=== PATIENT | female | born 1965 | race Caucasian/White ===

== ENCOUNTER 2016-11-08 20:44 | Inpatient (IN) | payer MEDICARE, OTHER ==
[~2016-11-08] VITALS: Ht 154.9 cm; Wt 94.0 kg
[~2016-11-08 20:44] MED LIST: AMLO-512 PO; CARV12 PO; DICL75TA5 PO; FENO160T11 PO; METF1000 PO; MULT-60 PO; PRAV40 PO
[2016-11-08] MEDS ORDERED: GLIP5 PO (20:54)
[2016-11-08] MEDS ORDERED: CARI350 PO (20:54)
[2016-11-08 21:01] LABS: GLUCOSE,POINT OF CARE 78 MG/DL (70-110)
[2016-11-08] MEDS ORDERED: MORPHINE SULFATE 2 MG/ML SYRINGE IVP ONE (21:15)
[2016-11-08] MEDS ORDERED: SODIUM CHLORIDE 0.9% 1,000 ML IV ONE (21:15)
[2016-11-08] MEDS ORDERED: ONDANSETRON HCL 4 MG/2 ML VIAL IVP ONE ×2 (21:15→21:45)
[2016-11-08 21:18] LABS: BASOPHILS % (AUTO) 0.7 % (0.0-2.0); EOSINOPHILS % (AUTO) 4.6 % (1.0-6.0); HEMATOCRIT 33.7 % (36-46); HEMOGLOBIN 11.4 g/dL (12.0-16.0); LYMPHOCYTES # (AUTO) 3.2 K/uL (1.0-4.8); LYMPHOCYTES % (AUTO) 46.6 % (22.0-44.0); MEAN CORPUSCULAR HEMOGLOBIN 29.1 pg (26.0-34.0); MEAN CORPUSCULAR HGB CONC 33.7 G/dL (31.0-37.0); MEAN CORPUSCULAR VOLUME 86 fL (80-100); MONOCYTES # (AUTO) 0.6 K/uL (0.1-1.0); MONOCYTES % (AUTO) 8.3 % (2.0-9.0); NEUTROPHILS # (AUTO) 2.7 K/uL (1.8-7.7); NEUTROPHILS % (AUTO) 39.8 % (40.0-70.0); PLATELET COUNT (AUTO) 364 K/uL (150-450); RED CELL DISTRIBUTION WIDTH 13.7 % (11.5-14.5); WHITE BLOOD COUNT (AUTO) 6.8 K/uL (4.5-11.0)
[2016-11-08 21:28] LABS: ANION GAP 11 mmol/L (8-16); CALCIUM, TOTAL 9.8 mg/dL (8.8-10.5); CARBON DIOXIDE 24 mmol/L (22-29); CHLORIDE 105 mmol/L (98-107); CREATININE 0.69 mg/dL (0.60-1.30); GLOMERULAR FILTR. RATE CALC > 60 mL/min (>60); SODIUM SERUM 140 mmol/L (136-145); UREA NITROGEN, BLOOD 18 mg/dL (7-18)
[2016-11-08 21:35] LABS: ALANINE AMINOTRANSFERASE 29 U/L (12-78); ALBUMIN 3.9 g/dL (3.4-5.0); ASPARTATE AMINOTRANSFERASE 18 U/L (15-37); BILIRUBIN,TOTAL 0.1 mg/dL (0.1-1.0)
[2016-11-08] MEDS ORDERED: HYDROmorphone 2 MG/ML SYRINGE IVP ONE ×2 (21:45→23:45)
[2016-11-08] MEDS ORDERED: BARIUM SULFATE 0.1% SUSPENSION 450 ML BOTTLE PO ONE (21:45)
[2016-11-08] MEDS ORDERED: IOVERSOL 350 MG/ML 50 ML VIAL ONE (22:28)
[2016-11-08] MEDS ORDERED: SODIUM CHLORIDE 0.9% 100 ML ONE (22:28)
[2016-11-08] MEDS ORDERED: IOVERSOL 350 MG/ML 100 ML VIAL ONE (22:28)
[2016-11-08 22:52] LABS: APPEARANCE,URINE CLEAR (CLEAR); GLUCOSE, URINE (UA) NEGATIVE (NEGATIVE); KETONES,URINE NEGATIVE (NEGATIVE); LEUKOCYTE ESTERASE ,URINE TRACE (NEGATIVE); OCCULT BLOOD,URINE NEGATIVE (NEGATIVE); PH,URINE 5.5 (5.0-8.0); PROTEIN,URINE NEGATIVE (NEGATIVE)
[2016-11-08 22:55] LABS: ADD UA MICROSCOPIC YES
[2016-11-08 23:08] LABS: SQUAMOUS EPITHELIAL CELL,UR Few /LPF (None Seen)
[2016-11-08 23:11] LABS: RBC,URINE 0-2 /HPF (0-2)
[2016-11-08] MEDS ORDERED: HYDROmorphone 2 MG/ML SYRINGE IVP PRN (23:30)
[2016-11-08] MEDS ORDERED: ACETAMINOPHEN 325 MG TABLET PO PRN (23:30)
[2016-11-08] MEDS ORDERED: 0.9% SODIUM CHLORIDE 10 ML SYRINGE IVP PRN (23:30)
[2016-11-08] MEDS ORDERED: POTASSIUM CHL 20 MEQ/0.45% NS 1,000 ML IV ONE (23:30)
[2016-11-08] MEDS ORDERED: ONDANSETRON HCL 4 MG/2 ML VIAL IVP PRN (23:30)
[2016-11-08] MEDS ORDERED: PANTOPRAZOLE SODIUM 80 MG in SODIUM CHLORIDE 0.9% 50 ML IV ONE (23:45)
[2016-11-09 00:44] VITALS: BP 139/83
[2016-11-09] MEDS ORDERED: OxyCODONE HCL/ACETAMINOPHEN 5-325 MG TABLET PO PRN (03:15)
[2016-11-09] MEDS ORDERED: ONDANSETRON HCL 4 MG/2 ML VIAL IVP PRN (03:15)
[2016-11-09] MEDS ORDERED: 0.9% SODIUM CHLORIDE 10 ML SYRINGE IVP PRN (03:15)
[2016-11-09 04:55] VITALS: BP 122/80
[2016-11-09] MEDS: OxyCODONE HCL/ACETAMINOPHEN 5-325 MG TABLET PO PRN ×3 (05:10→20:20)
[2016-11-09 08:15] VITALS: BP 127/68
[2016-11-09] MEDS: CARVEDILOL 25 MG TABLET PO SCH ×2 (08:21→20:19)
[2016-11-09] MEDS: DOCUSATE SODIUM 100 MG CAPSULE PO SCH ×2 (08:23→20:20)
[2016-11-09] MEDS: PANTOPRAZOLE SODIUM 40 MG/VIAL IVP SCH (08:23)
[2016-11-09] MEDS: AmLODIPine BESYLATE 10 MG TABLET PO SCH (10:56)
[2016-11-09 11:22] VITALS: BP 129/73
[2016-11-09 15:38] VITALS: BP 136/93
[2016-11-09] MEDS: MULTIVITAMINS, THERAPEUTIC TABLET PO SCH (15:58)
[2016-11-09] MEDS: CARISOPRODOL 350 MG TABLET PO SCH ×2 (15:58→20:18)
[2016-11-09] MEDS: GlipiZIDE 5 MG TABLET PO SCH (17:36)
[2016-11-09] MEDS: FENOFIBRATE 160 MG TABLET PO SCH (17:37)
[2016-11-09] MEDS: MetFORMIN HCL 500 MG TABLET PO SCH (17:47)
[2016-11-09] MEDS: DICLOFENAC SODIUM 75 MG DR TABLET PO SCH (20:20)
[2016-11-09 20:47] VITALS: BP 121/85
[2016-11-09] MEDS ORDERED: PRAVASTATIN SODIUM 40 MG TABLET PO SCH (21:00)
[2016-11-09 21:22] LABS: GLUCOSE,POINT OF CARE 138 MG/DL (70-110)
[2016-11-10 00:07] VITALS: BP 136/80
[2016-11-10] MEDS: OxyCODONE HCL/ACETAMINOPHEN 5-325 MG TABLET PO PRN ×2 (00:23→06:12)
[2016-11-10 04:17] VITALS: BP 145/82
[2016-11-10] MEDS: GlipiZIDE 5 MG TABLET PO SCH (06:09)
[2016-11-10 06:28] LABS: BASOPHILS % (AUTO) 0.4 % (0.0-2.0); EOSINOPHILS % (AUTO) 4.2 % (1.0-6.0); HEMATOCRIT 31.7 % (36-46); HEMOGLOBIN 10.6 g/dL (12.0-16.0); LYMPHOCYTES # (AUTO) 2.1 K/uL (1.0-4.8); LYMPHOCYTES % (AUTO) 36.3 % (22.0-44.0); MEAN CORPUSCULAR HEMOGLOBIN 29.3 pg (26.0-34.0); MEAN CORPUSCULAR HGB CONC 33.5 G/dL (31.0-37.0); MEAN CORPUSCULAR VOLUME 87 fL (80-100); MONOCYTES # (AUTO) 0.5 K/uL (0.1-1.0); MONOCYTES % (AUTO) 9.4 % (2.0-9.0); NEUTROPHILS # (AUTO) 2.9 K/uL (1.8-7.7); NEUTROPHILS % (AUTO) 49.7 % (40.0-70.0); PLATELET COUNT (AUTO) 310 K/uL (150-450); RED BLOOD CELL COUNT(AUTO) 3.62 MIL/uL (4.00-5.20); RED CELL DISTRIBUTION WIDTH 13.9 % (11.5-14.5); WHITE BLOOD COUNT (AUTO) 5.8 K/uL (4.5-11.0)
[2016-11-10 06:48] LABS: ANION GAP 8 mmol/L (8-16); CALCIUM, TOTAL 9.4 mg/dL (8.8-10.5); CARBON DIOXIDE 27 mmol/L (22-29); CHLORIDE 103 mmol/L (98-107); CREATININE 0.66 mg/dL (0.60-1.30); GLOMERULAR FILTR. RATE CALC > 60 mL/min (>60); POTASSIUM 3.9 mmol/L (3.5-5.1); SODIUM SERUM 138 mmol/L (136-145); UREA NITROGEN, BLOOD 15 mg/dL (7-18)
[2016-11-10 07:21] VITALS: BP 141/77
[2016-11-10 07:26] LABS: GLUCOSE,POINT OF CARE 131 MG/DL (70-110)
[2016-11-10] MEDS: PANTOPRAZOLE SODIUM 40 MG/VIAL IVP SCH (08:28)
[2016-11-10] MEDS: DICLOFENAC SODIUM 75 MG DR TABLET PO SCH (08:28)
[2016-11-10] MEDS: MULTIVITAMINS, THERAPEUTIC TABLET PO SCH (08:29)
[2016-11-10] MEDS: CARISOPRODOL 350 MG TABLET PO SCH (08:29)
[2016-11-10] MEDS: CARVEDILOL 25 MG TABLET PO SCH (08:29)
[2016-11-10] MEDS: DOCUSATE SODIUM 100 MG CAPSULE PO SCH (08:29)
[2016-11-10] MEDS: AmLODIPine BESYLATE 10 MG TABLET PO SCH (08:29)
[2016-11-10] MEDS: MetFORMIN HCL 500 MG TABLET PO SCH (08:29)
[2016-11-10] MEDS: FENOFIBRATE 160 MG TABLET PO SCH (08:34)
[2016-11-10] MEDS ORDERED: MetFORMIN HCL 500 MG TABLET PO SCH (18:00)
[2017-02-02] MEDS ORDERED: HYDR-305 PO (14:45)
[2017-02-02] MEDS ORDERED: GABA-318 PO ×2 (14:45)
== END 2016-11-10 11:17 | disposition home or self-care (01) | DRG 392 ==
LOC: EMS 20:46 → 6N 23:38
PROVIDERS: ADMIT Internal Medicine; ATTEND Internal Medicine
DX: K52.9 Noninfective gastroenteritis and colitis, unspecified (principal); E11.9 Type 2 diabetes mellitus without complications; E78.00 Pure hypercholesterolemia, unspecified; E86.0 Dehydration; I10 Essential (primary) hypertension; G89.29 Other chronic pain; M54.5 Low back pain; I25.10 Atherosclerotic heart disease of native coronary artery without angina pectoris; F41.9 Anxiety disorder, unspecified; G43.909 Migraine, unspecified, not intractable, without status migrainosus; E66.9 Obesity, unspecified; D64.9 Anemia, unspecified; F32.9 Major depressive disorder, single episode, unspecified; Z86.74 Personal history of sudden cardiac arrest; Z87.442 Personal history of urinary calculi; Z90.49 Acquired absence of other specified parts of digestive tract; Z93.3 Colostomy status; Z95.810 Presence of automatic (implantable) cardiac defibrillator; Z88.8 Allergy status to other drugs, medicaments and biological substances; Z79.899 Other long term (current) drug therapy; Z79.84 Long term (current) use of oral hypoglycemic drugs; Z79.1 Long term (current) use of non-steroidal anti-inflammatories (NSAID); I25.2 Old myocardial infarction; Z68.39 Body mass index [BMI] 39.0-39.9, adult
CPT/HCPCS: 74177; 82962; 93005; 96365; 96374; 96375; 99285; C9113; J1170; J2270; J2405; J3480; J7030; J7050

== ENCOUNTER 2016-12-01 04:18 | Emergency (ER) | payer MEDICARE, OTHER ==
[~2016-12-01] VITALS: Ht 154.9 cm; Wt 90.9 kg
[~2016-12-01 04:18] MED LIST changes: +CARI350 PO; +GLIP5 PO
[2016-12-01 04:36] LABS: GLUCOSE,POINT OF CARE 123 MG/DL (70-110)
[2016-12-01] MEDS ORDERED: ONDANSETRON HCL 4 MG TABLET PO ONE (06:30)
[2016-12-01] MEDS: OxyCODONE HCL/ACETAMINOPHEN 5-325 MG TABLET PO ONE ×2 (06:51→06:56)
[2016-12-01 07:04] VITALS: BP 115/74
[2017-02-02] MEDS ORDERED: GABA-318 PO ×2 (14:45)
[2017-02-02] MEDS ORDERED: HYDR-305 PO (14:45)
== END 2016-12-01 07:15 | disposition home or self-care (01) ==
LOC: EMS 04:21
DX: G89.18 Other acute postprocedural pain (principal); I11.9 Hypertensive heart disease without heart failure; I25.2 Old myocardial infarction; E11.9 Type 2 diabetes mellitus without complications; I25.10 Atherosclerotic heart disease of native coronary artery without angina pectoris; G43.909 Migraine, unspecified, not intractable, without status migrainosus; Z88.6 Allergy status to analgesic agent; Z88.8 Allergy status to other drugs, medicaments and biological substances
CPT/HCPCS: 82962; 99283; Q0162

== ENCOUNTER 2017-01-29 01:32 | Emergency (ER) | payer MEDICARE, OTHER ==
[~2017-01-29] VITALS: Ht 154.9 cm; Wt 90.0 kg
[2017-01-29 01:42] LABS: GLUCOSE,POINT OF CARE 95 MG/DL (70-110)
[2017-01-29] MEDS ORDERED: ONDANSETRON HCL 4 MG/2 ML VIAL IM ONE (02:00)
[2017-01-29] MEDS ORDERED: LORazepam 2 MG TABLET PO ONE (02:00)
[2017-01-29 02:34] VITALS: BP 132/88
== END 2017-01-29 03:17 | disposition home or self-care (01) ==
LOC: EMS 01:34
DX: F41.9 Anxiety disorder, unspecified (principal); G43.909 Migraine, unspecified, not intractable, without status migrainosus; F32.9 Major depressive disorder, single episode, unspecified; E11.9 Type 2 diabetes mellitus without complications; I10 Essential (primary) hypertension; I25.2 Old myocardial infarction; Z88.6 Allergy status to analgesic agent; Z88.8 Allergy status to other drugs, medicaments and biological substances
CPT/HCPCS: 82962; 96372; 99283; J2405

== ENCOUNTER 2017-02-03 05:35 | Inpatient (IN) | payer MEDICARE, OTHER ==
[2017-01-27 14:00] LABS: BASOPHILS # (AUTO) 0.03 K/uL (0.00-0.20); BASOPHILS % (AUTO) 0.5 % (0.0-2.0); EOSINOPHILS # (AUTO) 0.19 K/uL (0.00-0.70); EOSINOPHILS % (AUTO) 3.42 % (1.0-6.0); HEMOGLOBIN 12.1 g/dL (12.0-16.0); LYMPHOCYTES # (AUTO) 1.8 K/uL (1.0-4.8); MEAN CORPUSCULAR HEMOGLOBIN 28.6 pg (26.0-34.0); MEAN CORPUSCULAR HGB CONC 33.7 G/dL (31.0-37.0); MEAN CORPUSCULAR VOLUME 85 fL (80-100); MONOCYTES # (AUTO) 0.4 K/uL (0.1-1.0); MONOCYTES % (AUTO) 7.8 % (2.0-9.0); NEUTROPHILS # (AUTO) 3.1 K/uL (1.8-7.7); NEUTROPHILS % (AUTO) 55.2 % (40.0-70.0); PLATELET COUNT (AUTO) 372 K/uL (150-450); RED BLOOD CELL COUNT(AUTO) 4.24 MIL/uL (4.00-5.20); RED CELL DISTRIBUTION WIDTH 13.3 % (11.5-14.5); WHITE BLOOD COUNT (AUTO) 5.6 K/uL (4.5-11.0)
[2017-01-27 14:10] LABS: ANION GAP 9 mmol/L (8-16); CALCIUM, TOTAL 9.9 mg/dL (8.8-10.5); CARBON DIOXIDE 28 mmol/L (22-29); CHLORIDE 102 mmol/L (98-107); CREATININE 0.69 mg/dL (0.60-1.30); GLOMERULAR FILTR. RATE CALC > 60 mL/min (>60); POTASSIUM 4.1 mmol/L (3.5-5.1); SODIUM SERUM 139 mmol/L (136-145); UREA NITROGEN, BLOOD 11 mg/dL (7-18)
[2017-01-27 14:12] LABS: INR 1.1 (0.9-1.1); PROTHROMBIN TIME 11.4 SEC (9.4-11.6)
[2017-01-27 14:17] LABS: ALANINE AMINOTRANSFERASE 29 U/L (12-78); ALBUMIN 3.7 g/dL (3.4-5.0); ASPARTATE AMINOTRANSFERASE 23 U/L (15-37); BILIRUBIN,TOTAL 0.2 mg/dL (0.1-1.0); TOTAL PROTEIN, SERUM 8.4 g/dL (6.4-8.2)
[2017-01-27 16:01] LABS: APPEARANCE,URINE CLEAR (CLEAR); GLUCOSE, URINE (UA) NEGATIVE (NEGATIVE); KETONES,URINE NEGATIVE (NEGATIVE); LEUKOCYTE ESTERASE ,URINE TRACE (NEGATIVE); OCCULT BLOOD,URINE SMALL (NEGATIVE); PH,URINE 5.5 (5.0-8.0); PROTEIN,URINE POS 1+ (NEGATIVE)
[2017-01-27 16:31] LABS: RBC,URINE 0-2 /HPF (0-2); SQUAMOUS EPITHELIAL CELL,UR Few /LPF (None Seen)
[~2017-02-03] VITALS: Ht 154.9 cm; Wt 95.0 kg
[~2017-02-03 05:35] MED LIST changes: +GABA-318 PO; +HYDR-305 PO; +RINGERS SOLUTION,LACTATED 1,000 ML IV ONE
[2017-02-03] MEDS ORDERED: RINGERS SOLUTION,LACTATED 1,000 ML IV ONE (05:46)
[2017-02-03 06:27] LABS: GLUCOSE,POINT OF CARE 145 MG/DL (70-110)
[2017-02-03] MEDS ORDERED: SODIUM CHLORIDE 0.9% 100 ML ONE (06:43)
[2017-02-03] MEDS ORDERED: BACITRACIN 50,000 UNITS/VIAL ONE (06:46)
[2017-02-03] MEDS ORDERED: ONDANSETRON HCL 4 MG/2 ML VIAL IVP PRN ×2 (07:00→07:30)
[2017-02-03] MEDS ORDERED: CYCLOBENZAPRINE HCL 10 MG TABLET PO PRN (07:00)
[2017-02-03] MEDS ORDERED: MEPERIDINE-PF 25 MG/ML SYRINGE IVP PRN (07:00)
[2017-02-03] MEDS ORDERED: FentaNYL CITRATE-PF 100 MCG/2 ML VIAL IVP PRN (07:00)
[2017-02-03] MEDS ORDERED: HYDROmorphone 2 MG/ML SYRINGE IVP PRN (07:00)
[2017-02-03] MEDS ORDERED: TRANEXAMIC ACID 1,000 MG in DEXTROSE 5%-WATER 50 ML IV ONE (07:00)
[2017-02-03] MEDS ORDERED: BUPIVACAINE LIPOSOME/PF 1.3%-13.3MG/ML SUSPENSION 20 ML VIAL INJ ONE (07:00)
[2017-02-03] MEDS ORDERED: CELECOXIB 200 MG CAPSULE PO ONE (07:00)
[2017-02-03] MEDS ORDERED: CELECOXIB 200 MG CAPSULE ONE (07:05)
[2017-02-03] MEDS: ACETAMINOPHEN 1000 MG/ISO-OSM 100 ML IV SCH ×3 (07:06→19:15)
[2017-02-03] MEDS ORDERED: SODIUM CHLORIDE 0.9% 1,000 ML IV SCH (07:18)
[2017-02-03] MEDS ORDERED: BISACODYL 10 MG RECTAL RECTAL SUPPOSITORY PR PRN (07:30)
[2017-02-03] MEDS ORDERED: 0.9% SODIUM CHLORIDE 10 ML SYRINGE IVP PRN (07:30)
[2017-02-03] MEDS ORDERED: BENZOCAINE/MENTHOL LOZENGE [8 LOZENGES/PACKET] PO PRN (07:30)
[2017-02-03] MEDS: OXYGEN THERAPY IH SCH ×2 (08:00→20:00)
[2017-02-03] MEDS: AmLODIPine BESYLATE 10 MG TABLET PO SCH (09:00)
[2017-02-03] MEDS: CARVEDILOL 25 MG TABLET PO SCH ×2 (09:00→20:16)
[2017-02-03] MEDS: DOCUSATE SODIUM 100 MG CAPSULE PO SCH (09:00)
[2017-02-03 10:30] VITALS: BP 124/71
[2017-02-03] MEDS: HYDROmorphone 2 MG/ML SYRINGE IVP PRN ×7 (13:20→23:20)
[2017-02-03] MEDS: CARISOPRODOL 350 MG TABLET PO PRN (14:48)
[2017-02-03] MEDS: FENOFIBRATE 160 MG TABLET PO SCH (15:35)
[2017-02-03] MEDS: CeFAZolin 1 GM/DEXTROSE 50 ML IV SCH ×2 (15:35→23:23)
[2017-02-03 15:46] VITALS: BP 133/69
[2017-02-03] MEDS: GlipiZIDE 5 MG TABLET PO SCH (17:31)
[2017-02-03] MEDS: MetFORMIN HCL 500 MG TABLET PO SCH (17:32)
[2017-02-03 19:50] VITALS: BP 137/76
[2017-02-03] MEDS: CELECOXIB 200 MG CAPSULE PO SCH (20:16)
[2017-02-03] MEDS: PRAVASTATIN SODIUM 40 MG TABLET PO SCH (20:16)
[2017-02-03] MEDS ORDERED: HYDROmorphone 2 MG/ML SYRINGE IVP ONE (21:00)
[2017-02-03] MEDS: ZOLPIDEM TARTRATE 5 MG TABLET PO PRN (21:57)
[2017-02-03] MEDS ORDERED: FentaNYL CITRATE-PF 100 MCG/2 ML VIAL IVP ONE (22:35)
[2017-02-03] MEDS ORDERED: 0.9% SODIUM CHLORIDE 10 ML VIAL IVP ONE (22:35)
[2017-02-03] MEDS ORDERED: MIDAZOLAM HCL 2 MG/2 ML VIAL IVP ONE (22:35)
[2017-02-03] MEDS ORDERED: KETAMINE HCL 50 MG/ML 10 ML VIAL IVP ONE (22:35)
[2017-02-03] MEDS ORDERED: EPHEDrine SULFATE 50 MG/ML VIAL IM ONE (22:35)
[2017-02-03 23:37] VITALS: BP 141/80
[2017-02-04] MEDS ORDERED: DEXTROSE 50%-WATER 25 GM/50 ML SYRINGE IVP PRN (00:45)
[2017-02-04] MEDS: ACETAMINOPHEN 1000 MG/ISO-OSM 100 ML IV SCH ×2 (01:32→07:06)
[2017-02-04] MEDS: CARISOPRODOL 350 MG TABLET PO PRN ×3 (01:37→21:55)
[2017-02-04] MEDS: HYDROmorphone 2 MG/ML SYRINGE IVP PRN ×8 (02:21→19:05)
[2017-02-04 05:02] VITALS: BP 114/68
[2017-02-04] MEDS: GlipiZIDE 5 MG TABLET PO SCH ×2 (06:14→16:57)
[2017-02-04 06:18] LABS: BASOPHILS # (AUTO) 0.02 K/uL (0.00-0.20); BASOPHILS % (AUTO) 0.2 % (0.0-2.0); EOSINOPHILS # (AUTO) 0.33 K/uL (0.00-0.70); EOSINOPHILS % (AUTO) 3.88 % (1.0-6.0); HEMATOCRIT 28.3 % (36-46); HEMOGLOBIN 9.5 g/dL (12.0-16.0); LYMPHOCYTES # (AUTO) 1.6 K/uL (1.0-4.8); LYMPHOCYTES % (AUTO) 18.9 % (22.0-44.0); MEAN CORPUSCULAR HEMOGLOBIN 28.6 pg (26.0-34.0); MEAN CORPUSCULAR HGB CONC 33.5 G/dL (31.0-37.0); MEAN CORPUSCULAR VOLUME 85 fL (80-100); MONOCYTES # (AUTO) 0.6 K/uL (0.1-1.0); MONOCYTES % (AUTO) 7.1 % (2.0-9.0); NEUTROPHILS # (AUTO) 5.9 K/uL (1.8-7.7); NEUTROPHILS % (AUTO) 69.9 % (40.0-70.0); PLATELET COUNT (AUTO) 295 K/uL (150-450); RED BLOOD CELL COUNT(AUTO) 3.31 MIL/uL (4.00-5.20); RED CELL DISTRIBUTION WIDTH 13.5 % (11.5-14.5); WHITE BLOOD COUNT (AUTO) 8.4 K/uL (4.5-11.0)
[2017-02-04 06:20] LABS: ANION GAP 8 mmol/L (8-16); CALCIUM, TOTAL 8.7 mg/dL (8.8-10.5); CARBON DIOXIDE 27 mmol/L (22-29); CHLORIDE 102 mmol/L (98-107); GLOMERULAR FILTR. RATE CALC > 60 mL/min (>60); POTASSIUM 3.9 mmol/L (3.5-5.1); SODIUM SERUM 137 mmol/L (136-145); UREA NITROGEN, BLOOD 12 mg/dL (7-18)
[2017-02-04 06:32] LABS: GLUCOSE,POINT OF CARE 152 MG/DL (70-110)
[2017-02-04] MEDS: INSULIN ASPART 100 UNITS/ML SQ PRN ×3 (06:42→22:00)
[2017-02-04 07:30] VITALS: BP 136/63
[2017-02-04] MEDS: OXYGEN THERAPY IH SCH (08:00)
[2017-02-04] MEDS: AmLODIPine BESYLATE 10 MG TABLET PO SCH (08:30)
[2017-02-04] MEDS: MULTIVITAMINS, THERAPEUTIC TABLET PO SCH (08:30)
[2017-02-04] MEDS: CARVEDILOL 25 MG TABLET PO SCH ×2 (08:31→21:03)
[2017-02-04] MEDS: CELECOXIB 200 MG CAPSULE PO SCH ×2 (08:31→21:03)
[2017-02-04] MEDS: DOCUSATE SODIUM 100 MG CAPSULE PO SCH ×3 (08:32→21:03)
[2017-02-04] MEDS: FENOFIBRATE 160 MG TABLET PO SCH (08:33)
[2017-02-04] MEDS: GABAPENTIN 400 MG CAPSULE PO SCH (08:33)
[2017-02-04] MEDS: MetFORMIN HCL 500 MG TABLET PO SCH ×2 (08:33→17:40)
[2017-02-04] MEDS: DiphenhydrAMINE HCL 50 MG/ML VIAL IVP PRN (08:49)
[2017-02-04] MEDS: RIVAROXABAN 10 MG TABLET PO SCH ×2 (09:00→17:36)
[2017-02-04 11:30] VITALS: BP 111/78
[2017-02-04 12:22] LABS: GLUCOSE,POINT OF CARE 142 MG/DL (70-110)
[2017-02-04] MEDS: OxyCODONE HCL/ACETAMINOPHEN 10-325 MG TABLET PO PRN ×3 (13:55→21:54)
[2017-02-04 15:30] VITALS: BP 111/62
[2017-02-04 17:51] LABS: GLUCOSE,POINT OF CARE 123 MG/DL (70-110)
[2017-02-04] MEDS: PRAVASTATIN SODIUM 40 MG TABLET PO SCH (21:02)
[2017-02-04] MEDS: GABAPENTIN 300 MG CAPSULE PO SCH (21:03)
[2017-02-04 21:31] VITALS: BP 123/78
[2017-02-04 21:52] LABS: GLUCOSE,POINT OF CARE 136 MG/DL (70-110)
[2017-02-05] VITALS (7 sets, daily range): BP systolic 107–150; BP diastolic 58–78
[2017-02-05] MEDS: HYDROmorphone 2 MG/ML SYRINGE IVP PRN ×7 (04:11→19:23)
[2017-02-05] MEDS: GlipiZIDE 5 MG TABLET PO SCH ×2 (06:14→17:36)
[2017-02-05] MEDS: OxyCODONE HCL/ACETAMINOPHEN 10-325 MG TABLET PO PRN ×6 (06:17→23:15)
[2017-02-05 06:31] LABS: GLUCOSE,POINT OF CARE 151 MG/DL (70-110)
[2017-02-05] MEDS: INSULIN ASPART 100 UNITS/ML SQ PRN ×4 (06:36→21:39)
[2017-02-05 06:44] LABS: BASOPHILS % (AUTO) 0.2 % (0.0-2.0); EOSINOPHILS % (AUTO) 4.9 % (1.0-6.0); HEMOGLOBIN 9.1 g/dL (12.0-16.0); LYMPHOCYTES # (AUTO) 2.3 K/uL (1.0-4.8); LYMPHOCYTES % (AUTO) 25.5 % (22.0-44.0); MEAN CORPUSCULAR HEMOGLOBIN 28.1 pg (26.0-34.0); MEAN CORPUSCULAR HGB CONC 32.4 G/dL (31.0-37.0); MEAN CORPUSCULAR VOLUME 87 fL (80-100); MONOCYTES # (AUTO) 0.8 K/uL (0.1-1.0); NEUTROPHILS # (AUTO) 5.4 K/uL (1.8-7.7); NEUTROPHILS % (AUTO) 60.4 % (40.0-70.0); PLATELET COUNT (AUTO) 295 K/uL (150-450); RED BLOOD CELL COUNT(AUTO) 3.23 MIL/uL (4.00-5.20); RED CELL DISTRIBUTION WIDTH 13.4 % (11.5-14.5)
[2017-02-05] MEDS: OXYGEN THERAPY IH SCH ×4 (08:00→20:00)
[2017-02-05] MEDS: AmLODIPine BESYLATE 10 MG TABLET PO SCH (08:28)
[2017-02-05] MEDS: CARISOPRODOL 350 MG TABLET PO PRN ×3 (08:28→20:51)
[2017-02-05] MEDS: FENOFIBRATE 160 MG TABLET PO SCH (08:28)
[2017-02-05] MEDS: GABAPENTIN 400 MG CAPSULE PO SCH (08:28)
[2017-02-05] MEDS: DOCUSATE SODIUM 100 MG CAPSULE PO SCH ×2 (08:28→20:47)
[2017-02-05] MEDS: MetFORMIN HCL 500 MG TABLET PO SCH ×2 (08:28→17:36)
[2017-02-05] MEDS: MULTIVITAMINS, THERAPEUTIC TABLET PO SCH (08:28)
[2017-02-05] MEDS: CELECOXIB 200 MG CAPSULE PO SCH ×2 (08:29→20:47)
[2017-02-05] MEDS: CARVEDILOL 25 MG TABLET PO SCH ×2 (08:29→20:48)
[2017-02-05 13:02] LABS: GLUCOSE,POINT OF CARE 143 MG/DL (70-110)
[2017-02-05 17:32] LABS: GLUCOSE,POINT OF CARE 183 MG/DL (70-110)
[2017-02-05] MEDS: RIVAROXABAN 10 MG TABLET PO SCH (17:36)
[2017-02-05] MEDS: GABAPENTIN 300 MG CAPSULE PO SCH (20:47)
[2017-02-05] MEDS: PRAVASTATIN SODIUM 40 MG TABLET PO SCH (20:48)
[2017-02-05 21:07] LABS: GLUCOSE,POINT OF CARE 143 MG/DL (70-110)
[2017-02-05] MEDS: DiphenhydrAMINE HCL 50 MG/ML VIAL IVP PRN (23:14)
[2017-02-05] MEDS: ZOLPIDEM TARTRATE 5 MG TABLET PO PRN (23:15)
[2017-02-06 03:44] VITALS: BP 134/74
[2017-02-06] MEDS: OxyCODONE HCL/ACETAMINOPHEN 10-325 MG TABLET PO PRN ×2 (03:44→06:18)
[2017-02-06 06:09] LABS: BASOPHILS # (AUTO) 0.03 K/uL (0.00-0.20); BASOPHILS % (AUTO) 0.3 % (0.0-2.0); EOSINOPHILS # (AUTO) 0.47 K/uL (0.00-0.70); EOSINOPHILS % (AUTO) 4.38 % (1.0-6.0); HEMATOCRIT 26.5 % (36-46); HEMOGLOBIN 8.7 g/dL (12.0-16.0); LYMPHOCYTES # (AUTO) 1.8 K/uL (1.0-4.8); LYMPHOCYTES % (AUTO) 16.5 % (22.0-44.0); MEAN CORPUSCULAR HEMOGLOBIN 28.7 pg (26.0-34.0); MEAN CORPUSCULAR HGB CONC 32.9 G/dL (31.0-37.0); MEAN CORPUSCULAR VOLUME 87 fL (80-100); MONOCYTES # (AUTO) 0.8 K/uL (0.1-1.0); MONOCYTES % (AUTO) 7.5 % (2.0-9.0); NEUTROPHILS # (AUTO) 7.6 K/uL (1.8-7.7); NEUTROPHILS % (AUTO) 71.4 % (40.0-70.0); PLATELET COUNT (AUTO) 292 K/uL (150-450); RED BLOOD CELL COUNT(AUTO) 3.03 MIL/uL (4.00-5.20); RED CELL DISTRIBUTION WIDTH 13.3 % (11.5-14.5); WHITE BLOOD COUNT (AUTO) 10.7 K/uL (4.5-11.0)
[2017-02-06] MEDS: INSULIN ASPART 100 UNITS/ML SQ PRN (06:18)
[2017-02-06] MEDS: GlipiZIDE 5 MG TABLET PO SCH (06:18)
[2017-02-06 06:37] LABS: GLUCOSE COMMENT 1 Received Meds; GLUCOSE,POINT OF CARE 147 MG/DL (70-110)
[2017-02-06 06:56] LABS: RBC MORPHOLOGY COMMENT ABNORMAL RBC MORPH
[2017-02-06] MEDS ORDERED: RIVA10 PO (07:24)
[2017-02-06] MEDS ORDERED: PERCT10 PO (07:25)
[2017-02-06] MEDS: CELECOXIB 200 MG CAPSULE PO SCH (07:53)
[2017-02-06] MEDS: OXYGEN THERAPY IH SCH ×2 (07:53→08:00)
[2017-02-06] MEDS: MetFORMIN HCL 500 MG TABLET PO SCH (07:54)
[2017-02-06] MEDS: CARISOPRODOL 350 MG TABLET PO PRN (07:54)
[2017-02-06] MEDS: FENOFIBRATE 160 MG TABLET PO SCH (07:55)
[2017-02-06] MEDS: GABAPENTIN 400 MG CAPSULE PO SCH (07:56)
[2017-02-06] MEDS: CARVEDILOL 25 MG TABLET PO SCH (07:56)
[2017-02-06 08:00] VITALS: BP 110/63
[2017-02-06] MEDS: AmLODIPine BESYLATE 10 MG TABLET PO SCH (08:03)
[2017-02-06] MEDS: MULTIVITAMINS, THERAPEUTIC TABLET PO SCH (08:03)
[2017-02-06] MEDS: DOCUSATE SODIUM 100 MG CAPSULE PO SCH (09:00)
== END 2017-02-06 09:00 | disposition home health service (06) | DRG 470 ==
LOC: 4E 05:35
PROVIDERS: ADMIT Orthopaedic Surgery; ATTEND Orthopaedic Surgery
PROC: 0SRD0J9 Replacement of Left Knee Joint with Synthetic Substitute, Cemented, Open Approach (ICD-10-PCS; principal; 2017-02-03 07:30)
DX: M17.12 Unilateral primary osteoarthritis, left knee (principal); E78.5 Hyperlipidemia, unspecified; F31.9 Bipolar disorder, unspecified; I25.10 Atherosclerotic heart disease of native coronary artery without angina pectoris; I25.5 Ischemic cardiomyopathy; F41.9 Anxiety disorder, unspecified; G43.909 Migraine, unspecified, not intractable, without status migrainosus; J44.9 Chronic obstructive pulmonary disease, unspecified; G89.4 Chronic pain syndrome; I50.9 Heart failure, unspecified; I11.0 Hypertensive heart disease with heart failure; E66.09 Other obesity due to excess calories; E11.40 Type 2 diabetes mellitus with diabetic neuropathy, unspecified; E78.00 Pure hypercholesterolemia, unspecified; Z83.3 Family history of diabetes mellitus; Z86.74 Personal history of sudden cardiac arrest; Z87.442 Personal history of urinary calculi; Z90.49 Acquired absence of other specified parts of digestive tract; Z93.3 Colostomy status; Z95.810 Presence of automatic (implantable) cardiac defibrillator; I25.2 Old myocardial infarction; Z90.710 Acquired absence of both cervix and uterus; Z79.84 Long term (current) use of oral hypoglycemic drugs; Z79.899 Other long term (current) drug therapy; Z88.6 Allergy status to analgesic agent; Z88.8 Allergy status to other drugs, medicaments and biological substances; Z68.39 Body mass index [BMI] 39.0-39.9, adult
CPT/HCPCS: 82962; 87081; 88300; 93005; 94760; 97110; 97116; 97162; 97165; 97530; C9290; G0238; J0131; J0690; J1170; J1200; J2250; J3010; J3490; J7030; J7050; J7060; J7120

== ENCOUNTER 2017-03-15 03:44 | Emergency (ER) | payer MEDICARE, OTHER ==
[~2017-03-15] VITALS: Ht 154.9 cm; Wt 95.0 kg
[~2017-03-15 03:44] MED LIST changes: +PERCT10 PO; -RINGERS SOLUTION,LACTATED 1,000 ML IV ONE; +RIVA10 PO
[2017-03-15 03:57] LABS: GLUCOSE,POINT OF CARE 226 MG/DL (70-110)
[2017-03-15] MEDS ORDERED: MORPHINE SULFATE 4 MG/ML SYRINGE IM ONE (07:15)
[2017-03-15 07:49] VITALS: BP 138/79
== END 2017-03-15 07:51 | disposition home or self-care (01) ==
LOC: EMS 03:48
DX: M25.562 Pain in left knee (principal); G89.29 Other chronic pain; E11.9 Type 2 diabetes mellitus without complications; F32.9 Major depressive disorder, single episode, unspecified; F41.9 Anxiety disorder, unspecified; I10 Essential (primary) hypertension; I25.10 Atherosclerotic heart disease of native coronary artery without angina pectoris; Z79.01 Long term (current) use of anticoagulants; Z87.442 Personal history of urinary calculi; Z95.0 Presence of cardiac pacemaker; Z88.8 Allergy status to other drugs, medicaments and biological substances; Z88.6 Allergy status to analgesic agent
CPT/HCPCS: 82962; 96372; 99283; J2270

== ENCOUNTER 2017-03-25 00:29 | Emergency (ER) | payer MEDICARE, OTHER ==
[~2017-03-25] VITALS: Ht 154.9 cm; Wt 96.4 kg
[2017-03-25 00:41] LABS: GLUCOSE,POINT OF CARE 150 MG/DL (70-110)
[2017-03-25] MEDS: MORPHINE SULFATE 4 MG/ML SYRINGE IVP ONE (02:18)
[2017-03-25] MEDS: ONDANSETRON HCL 4 MG/2 ML VIAL IVP ONE (02:18)
[2017-03-25 02:41] VITALS: BP 120/75
== END 2017-03-25 02:43 | disposition home or self-care (01) ==
LOC: EMS 00:31
DX: M25.562 Pain in left knee (principal); G89.29 Other chronic pain; I25.10 Atherosclerotic heart disease of native coronary artery without angina pectoris; I11.9 Hypertensive heart disease without heart failure; E11.9 Type 2 diabetes mellitus without complications; I25.2 Old myocardial infarction; Z88.8 Allergy status to other drugs, medicaments and biological substances
CPT/HCPCS: 82962; 96374; 96375; 99284; J2270; J2405

== ENCOUNTER 2017-04-09 21:21 | Emergency (ER) | payer MEDICARE, OTHER ==
[~2017-04-09] VITALS: Ht 154.9 cm; Wt 90.0 kg
[2017-04-09 21:32] LABS: GLUCOSE,POINT OF CARE 202 MG/DL (70-110)
[2017-04-09] MEDS ORDERED: OxyCODONE HCL/ACETAMINOPHEN 5-325 MG TABLET PO ONE (22:15)
[2017-04-09 22:52] VITALS: BP 130/76
== END 2017-04-09 23:57 | disposition home or self-care (01) ==
LOC: EMS 21:30
DX: S83.92XA Sprain of unspecified site of left knee, initial encounter (principal); I11.9 Hypertensive heart disease without heart failure; I25.2 Old myocardial infarction; I25.10 Atherosclerotic heart disease of native coronary artery without angina pectoris; E11.9 Type 2 diabetes mellitus without complications; G43.909 Migraine, unspecified, not intractable, without status migrainosus; Z95.0 Presence of cardiac pacemaker; Z88.8 Allergy status to other drugs, medicaments and biological substances; W22.01XA Walked into wall, initial encounter; Y93.89 Activity, other specified; Y92.89 Other specified places as the place of occurrence of the external cause; Y99.8 Other external cause status
CPT/HCPCS: 29505; 29530; 82962; 99283

== ENCOUNTER 2017-04-17 11:00 | Emergency (ER) | payer MEDICARE, OTHER ==
[~2017-04-17] VITALS: Ht 154.9 cm; Wt 90.9 kg
[2017-04-17 11:26] LABS: GLUCOSE,POINT OF CARE 129 MG/DL (70-110)
[2017-04-17] MEDS ORDERED: SODIUM CHLORIDE 0.9% 1,000 ML IV ONE (12:00)
[2017-04-17] MEDS ORDERED: HYDROmorphone 2 MG/ML SYRINGE IVP ONE (12:00)
[2017-04-17] MEDS ORDERED: ONDANSETRON HCL 4 MG/2 ML VIAL IVP ONE (12:00)
[2017-04-17 12:33] LABS: BASOPHILS % (AUTO) 0.7 % (0.0-2.0); EOSINOPHILS % (AUTO) 3.7 % (1.0-6.0); HEMATOCRIT 30.2 % (36-46); HEMOGLOBIN 10.3 g/dL (12.0-16.0); LYMPHOCYTES # (AUTO) 2.8 K/uL (1.0-4.8); LYMPHOCYTES % (AUTO) 49.9 % (22.0-44.0); MEAN CORPUSCULAR HEMOGLOBIN 28.8 pg (26.0-34.0); MEAN CORPUSCULAR HGB CONC 34.1 G/dL (31.0-37.0); MEAN CORPUSCULAR VOLUME 85 fL (80-100); MONOCYTES # (AUTO) 0.4 K/uL (0.1-1.0); MONOCYTES % (AUTO) 7.9 % (2.0-9.0); NEUTROPHILS # (AUTO) 2.1 K/uL (1.8-7.7); NEUTROPHILS % (AUTO) 37.8 % (40.0-70.0); PLATELET COUNT (AUTO) 326 K/uL (150-450); RED BLOOD CELL COUNT(AUTO) 3.56 MIL/uL (4.00-5.20); RED CELL DISTRIBUTION WIDTH 14.9 % (11.5-14.5); WHITE BLOOD COUNT (AUTO) 5.5 K/uL (4.5-11.0)
[2017-04-17 12:43] LABS: APPEARANCE,URINE CLEAR (CLEAR); GLUCOSE, URINE (UA) NEGATIVE (NEGATIVE); KETONES,URINE NEGATIVE (NEGATIVE); LEUKOCYTE ESTERASE ,URINE SMALL (NEGATIVE); OCCULT BLOOD,URINE NEGATIVE (NEGATIVE); PH,URINE 5.5 (5.0-8.0); PROTEIN,URINE POS 1+ (NEGATIVE)
[2017-04-17 12:44] LABS: ADD UA MICROSCOPIC YES
[2017-04-17 12:46] LABS: RBC,URINE 0-2 /HPF (0-2)
[2017-04-17 12:47] LABS: SQUAMOUS EPITHELIAL CELL,UR Few /LPF (None Seen)
[2017-04-17 13:02] LABS: ANION GAP 11 mmol/L (8-16); CALCIUM, TOTAL 9.2 mg/dL (8.8-10.5); CARBON DIOXIDE 26 mmol/L (22-29); CHLORIDE 107 mmol/L (98-107); CREATININE 0.88 mg/dL (0.60-1.30); GLOMERULAR FILTR. RATE CALC > 60 mL/min (>60); POTASSIUM 3.6 mmol/L (3.5-5.1); SODIUM SERUM 144 mmol/L (136-145); UREA NITROGEN, BLOOD 20 mg/dL (7-18)
[2017-04-17 13:08] LABS: ALANINE AMINOTRANSFERASE 28 U/L (12-78); ALBUMIN 3.6 g/dL (3.4-5.0); ASPARTATE AMINOTRANSFERASE 22 U/L (15-37); BILIRUBIN,TOTAL 0.2 mg/dL (0.1-1.0); TOTAL PROTEIN, SERUM 7.1 g/dL (6.4-8.2)
[2017-04-17 13:31] VITALS: BP 100/65
== END 2017-04-17 13:37 | disposition home or self-care (01) ==
LOC: EMS 11:06
DX: R10.9 Unspecified abdominal pain (principal); E11.9 Type 2 diabetes mellitus without complications; E66.01 Morbid (severe) obesity due to excess calories; I11.9 Hypertensive heart disease without heart failure; I25.10 Atherosclerotic heart disease of native coronary artery without angina pectoris; G43.909 Migraine, unspecified, not intractable, without status migrainosus; I25.2 Old myocardial infarction; Z87.442 Personal history of urinary calculi; Z68.37 Body mass index [BMI] 37.0-37.9, adult; Z93.3 Colostomy status; Z95.0 Presence of cardiac pacemaker; Z90.49 Acquired absence of other specified parts of digestive tract; Z88.6 Allergy status to analgesic agent; Z88.8 Allergy status to other drugs, medicaments and biological substances
CPT/HCPCS: 36415; 80053; 80307; 81001; 82962; 83690; 85025; 96361; 96374; 96375; 99285; J1170; J2405; J7030

== ENCOUNTER 2017-05-15 06:46 | Emergency (ER) | payer MEDICARE, OTHER ==
[~2017-05-15] VITALS: Ht 154.9 cm; Wt 90.9 kg
[2017-05-15 07:07] LABS: GLUCOSE,POINT OF CARE 253 MG/DL (70-110)
[2017-05-15 07:11] VITALS: BP 151/90
[2017-05-15] MEDS ORDERED: CEPHALEXIN MONOHYDRATE 500 MG CAPSULE PO ONE (07:45)
[2017-05-15] MEDS ORDERED: ONDANSETRON HCL 4 MG TABLET PO ONE (07:45)
== END 2017-05-15 07:58 | disposition home or self-care (01) ==
LOC: EMS 06:56
DX: N39.0 Urinary tract infection, site not specified (principal); E11.65 Type 2 diabetes mellitus with hyperglycemia; M54.42 Lumbago with sciatica, left side; G89.29 Other chronic pain; I25.10 Atherosclerotic heart disease of native coronary artery without angina pectoris; I25.2 Old myocardial infarction; G43.909 Migraine, unspecified, not intractable, without status migrainosus; I11.9 Hypertensive heart disease without heart failure; Z88.6 Allergy status to analgesic agent; Z88.8 Allergy status to other drugs, medicaments and biological substances; Z95.0 Presence of cardiac pacemaker
CPT/HCPCS: 81002; 82962; 99283; Q0162

== ENCOUNTER 2017-05-19 10:32 | Emergency (ER) | payer MEDICARE, OTHER ==
[~2017-05-19] VITALS: Ht 154.9 cm; Wt 90.9 kg
[2017-05-19 10:52] LABS: GLUCOSE,POINT OF CARE 200 MG/DL (70-110)
[2017-05-19] MEDS ORDERED: ACETAMINOPHEN 325 MG TABLET PO ONE (12:00)
[2017-05-19] MEDS ORDERED: ONDANSETRON HCL 4 MG/2 ML VIAL IVP ONE (12:00)
[2017-05-19] MEDS ORDERED: SODIUM CHLORIDE 0.9% 1,000 ML IV ONE (12:00)
[2017-05-19 12:42] LABS: BASOPHILS # (AUTO) 0.04 K/uL (0.00-0.20); BASOPHILS % (AUTO) 0.5 % (0.0-2.0); EOSINOPHILS # (AUTO) 0.15 K/uL (0.00-0.70); EOSINOPHILS % (AUTO) 1.96 % (1.0-6.0); HEMATOCRIT 40.1 % (36-46); HEMOGLOBIN 13.3 g/dL (12.0-16.0); LYMPHOCYTES # (AUTO) 2.2 K/uL (1.0-4.8); LYMPHOCYTES % (AUTO) 27.7 % (22.0-44.0); MEAN CORPUSCULAR VOLUME 88 fL (80-100); MONOCYTES # (AUTO) 0.4 K/uL (0.1-1.0); NEUTROPHILS # (AUTO) 5.1 K/uL (1.8-7.7); NEUTROPHILS % (AUTO) 64.8 % (40.0-70.0); PLATELET COUNT (AUTO) 406 K/uL (150-450); RED BLOOD CELL COUNT(AUTO) 4.57 MIL/uL (4.00-5.20); RED CELL DISTRIBUTION WIDTH 13.8 % (11.5-14.5); WHITE BLOOD COUNT (AUTO) 7.8 K/uL (4.5-11.0)
[2017-05-19 12:47] LABS: ANION GAP 15 mmol/L (8-16); CALCIUM, TOTAL 10.4 mg/dL (8.8-10.5); CARBON DIOXIDE 22 mmol/L (22-29); CHLORIDE 104 mmol/L (98-107); CREATININE 0.87 mg/dL (0.60-1.30); GLOMERULAR FILTR. RATE CALC > 60 mL/min (>60); POTASSIUM 3.8 mmol/L (3.5-5.1); SODIUM SERUM 141 mmol/L (136-145); UREA NITROGEN, BLOOD 11 mg/dL (7-18)
[2017-05-19 12:53] LABS: ALANINE AMINOTRANSFERASE 33 U/L (12-78); ALBUMIN 4.2 g/dL (3.4-5.0); ASPARTATE AMINOTRANSFERASE 23 U/L (15-37); BILIRUBIN,TOTAL 0.3 mg/dL (0.1-1.0)
[2017-05-19] MEDS ORDERED: DEXAMETHASONE 4 MG TABLET PO ONE (13:45)
[2017-05-19] MEDS ORDERED: DiphenhydrAMINE HCL 50 MG/ML VIAL IVP ONE (13:45)
[2017-05-19 14:51] VITALS: BP 149/87
== END 2017-05-19 15:06 | disposition home or self-care (01) ==
LOC: EMS 10:37
DX: G43.909 Migraine, unspecified, not intractable, without status migrainosus (principal); E11.9 Type 2 diabetes mellitus without complications; I11.9 Hypertensive heart disease without heart failure; I25.10 Atherosclerotic heart disease of native coronary artery without angina pectoris; I25.2 Old myocardial infarction; Z95.0 Presence of cardiac pacemaker; Z87.442 Personal history of urinary calculi; Z93.3 Colostomy status; Z88.8 Allergy status to other drugs, medicaments and biological substances
CPT/HCPCS: 36415; 80053; 82962; 84703; 85025; 96361; 96374; 96375; 99284; J1200; J2405; J7030; J8540

== ENCOUNTER 2017-06-03 02:32 | Emergency (ER) | payer MEDICARE, OTHER ==
[~2017-06-03] VITALS: Ht 154.9 cm; Wt 90.9 kg
[~2017-06-03 02:32] MED LIST changes: -PERCT10 PO; -RIVA10 PO
[2017-06-03 02:46] LABS: GLUCOSE,POINT OF CARE 179 MG/DL (70-110)
[2017-06-03 03:16] LABS: APPEARANCE,URINE CLEAR (CLEAR); GLUCOSE, URINE (UA) NEGATIVE (NEGATIVE); KETONES,URINE NEGATIVE (NEGATIVE); LEUKOCYTE ESTERASE ,URINE SMALL (NEGATIVE); OCCULT BLOOD,URINE NEGATIVE (NEGATIVE); PH,URINE 5.5 (5.0-8.0); PROTEIN,URINE NEGATIVE (NEGATIVE)
[2017-06-03 03:17] LABS: ADD UA MICROSCOPIC YES
[2017-06-03 03:25] LABS: RBC,URINE 0-2 /HPF (0-2); SQUAMOUS EPITHELIAL CELL,UR Few /LPF (None Seen)
[2017-06-03] MEDS ORDERED: CEPHALEXIN MONOHYDRATE 500 MG CAPSULE PO ONE (03:45)
[2017-06-03] MEDS ORDERED: METHOCARBAMOL 750 MG TABLET PO ONE (03:45)
[2017-06-03] MEDS ORDERED: LORazepam 2 MG/ML VIAL IVP ONE (03:45)
[2017-06-03] MEDS ORDERED: METHOCARBAMOL 500 MG TABLET PO ONE (04:00)
[2017-06-03 05:06] VITALS: BP 144/78
== END 2017-06-03 05:12 | disposition home or self-care (01) ==
LOC: EMS 02:34
DX: M54.5 Low back pain (principal); G89.29 Other chronic pain; E66.01 Morbid (severe) obesity due to excess calories; Z68.37 Body mass index [BMI] 37.0-37.9, adult; I10 Essential (primary) hypertension; E11.9 Type 2 diabetes mellitus without complications; I25.10 Atherosclerotic heart disease of native coronary artery without angina pectoris; I25.2 Old myocardial infarction; G43.909 Migraine, unspecified, not intractable, without status migrainosus; Z90.49 Acquired absence of other specified parts of digestive tract; Z90.710 Acquired absence of both cervix and uterus; Z95.0 Presence of cardiac pacemaker; Z93.3 Colostomy status
CPT/HCPCS: 81001; 82962; 87086; 96374; 99284; J2060

== ENCOUNTER 2017-06-10 14:10 | Emergency (ER) | payer MEDICARE, OTHER ==
[~2017-06-10] VITALS: Ht 152.4 cm; Wt 99.0 kg
[2017-06-10] MEDS ORDERED: ACETAMINOPHEN 1000 MG/ISO-OSM 100 ML IV ONE (15:45)
[2017-06-10] MEDS ORDERED: SODIUM CHLORIDE 0.9% 1,000 ML IV ONE (15:45)
[2017-06-10] MEDS ORDERED: ONDANSETRON HCL 4 MG/2 ML VIAL IVP ONE (15:45)
[2017-06-10] MEDS ORDERED: DONNATAL/LIDOCAINE/MAALOX 55 ML BOTTLE PO ONE (16:45)
[2017-06-10 16:56] LABS: BASOPHILS % (AUTO) 0.5 % (0.0-2.0); EOSINOPHILS % (AUTO) 4.1 % (1.0-6.0); HEMATOCRIT 36.1 % (36-46); HEMOGLOBIN 12.1 g/dL (12.0-16.0); LYMPHOCYTES # (AUTO) 2.9 K/uL (1.0-4.8); LYMPHOCYTES % (AUTO) 36.7 % (22.0-44.0); MEAN CORPUSCULAR HEMOGLOBIN 29.5 pg (26.0-34.0); MEAN CORPUSCULAR HGB CONC 33.7 G/dL (31.0-37.0); MEAN CORPUSCULAR VOLUME 88 fL (80-100); MONOCYTES # (AUTO) 0.6 K/uL (0.1-1.0); MONOCYTES % (AUTO) 7.6 % (2.0-9.0); NEUTROPHILS % (AUTO) 51.1 % (40.0-70.0); PLATELET COUNT (AUTO) 405 K/uL (150-450); RED BLOOD CELL COUNT(AUTO) 4.12 MIL/uL (4.00-5.20); WHITE BLOOD COUNT (AUTO) 7.8 K/uL (4.5-11.0)
[2017-06-10 16:58] LABS: ANION GAP 11 mmol/L (8-16); CALCIUM, TOTAL 9.8 mg/dL (8.8-10.5); CARBON DIOXIDE 25 mmol/L (22-29); CHLORIDE 104 mmol/L (98-107); CREATININE 0.96 mg/dL (0.60-1.30); GLOMERULAR FILTR. RATE CALC > 60 mL/min (>60); POTASSIUM 4.1 mmol/L (3.5-5.1); SODIUM SERUM 140 mmol/L (136-145); UREA NITROGEN, BLOOD 23 mg/dL (7-18)
[2017-06-10 17:04] LABS: ALANINE AMINOTRANSFERASE 35 U/L (12-78); ALBUMIN 4.2 g/dL (3.4-5.0); ASPARTATE AMINOTRANSFERASE 30 U/L (15-37); BILIRUBIN,TOTAL 0.2 mg/dL (0.1-1.0); TOTAL PROTEIN, SERUM 8.3 g/dL (6.4-8.2)
[2017-06-10 19:04] VITALS: BP 132/78
[2017-06-10 19:10] LABS: APPEARANCE,URINE CLEAR (CLEAR); GLUCOSE, URINE (UA) NEGATIVE (NEGATIVE); KETONES,URINE NEGATIVE (NEGATIVE); LEUKOCYTE ESTERASE ,URINE NEGATIVE (NEGATIVE); OCCULT BLOOD,URINE NEGATIVE (NEGATIVE); PH,URINE 5.5 (5.0-8.0); PROTEIN,URINE NEGATIVE (NEGATIVE)
[2017-06-10 19:13] LABS: ADD UA MICROSCOPIC NO
== END 2017-06-10 19:26 | disposition home or self-care (01) ==
LOC: EMS 14:12
DX: R51 Headache (principal); M54.9 Dorsalgia, unspecified; F11.20 Opioid dependence, uncomplicated; I11.9 Hypertensive heart disease without heart failure; I25.10 Atherosclerotic heart disease of native coronary artery without angina pectoris; K21.9 Gastro-esophageal reflux disease without esophagitis; E11.9 Type 2 diabetes mellitus without complications; I25.2 Old myocardial infarction; Z88.8 Allergy status to other drugs, medicaments and biological substances
CPT/HCPCS: 36415; 80053; 81003; 85025; 96365; 96375; 99284; J0131; J2405; J7030

== ENCOUNTER 2017-08-03 10:06 | Emergency (ER) | payer MEDICARE, OTHER ==
[~2017-08-03] VITALS: Ht 154.9 cm; Wt 90.9 kg
[~2017-08-03 10:06] MED LIST changes: -PRAV40 PO; +PRAV40TA4 PO
[2017-08-03 10:19] LABS: GLUCOSE,POINT OF CARE 185 MG/DL (70-110)
[2017-08-03 10:41] LABS: APPEARANCE,URINE CLEAR (CLEAR); GLUCOSE, URINE (UA) NEGATIVE (NEGATIVE); KETONES,URINE NEGATIVE (NEGATIVE); LEUKOCYTE ESTERASE ,URINE NEGATIVE (NEGATIVE); OCCULT BLOOD,URINE TRACE (NEGATIVE); PROTEIN,URINE POS 1+ (NEGATIVE)
[2017-08-03 10:45] LABS: ADD UA MICROSCOPIC YES
[2017-08-03 10:48] LABS: RBC,URINE 0-2 /HPF (0-2); SQUAMOUS EPITHELIAL CELL,UR Rare /LPF (None Seen); WBC,URINE 0-2 /HPF (0-5)
[2017-08-03] MEDS ORDERED: LORazepam 1 MG TABLET PO ONE (12:30)
[2017-08-03] MEDS ORDERED: OxyCODONE HCL/ACETAMINOPHEN 5-325 MG TABLET PO ONE (12:30)
[2017-08-03 13:45] VITALS: BP 149/88
[2017-08-03] MEDS ORDERED: MORPHINE SULFATE 2 MG/ML SYRINGE IM ONE (13:45)
[2017-08-03] MEDS ORDERED: ONDANSETRON HCL 4 MG/2 ML VIAL IM ONE (13:45)
== END 2017-08-03 14:12 | disposition home or self-care (01) ==
LOC: EMS 10:06
DX: S39.012A Strain of muscle, fascia and tendon of lower back, initial encounter (principal); I11.9 Hypertensive heart disease without heart failure; E11.9 Type 2 diabetes mellitus without complications; I25.10 Atherosclerotic heart disease of native coronary artery without angina pectoris; K21.9 Gastro-esophageal reflux disease without esophagitis; I25.2 Old myocardial infarction; G43.909 Migraine, unspecified, not intractable, without status migrainosus; G89.29 Other chronic pain; Z95.0 Presence of cardiac pacemaker; Z88.8 Allergy status to other drugs, medicaments and biological substances; X58.XXXA Exposure to other specified factors, initial encounter; Y93.89 Activity, other specified; Y92.89 Other specified places as the place of occurrence of the external cause; Y99.8 Other external cause status
CPT/HCPCS: 81001; 82962; 96372; 99284; J2270; J2405

== ENCOUNTER 2017-09-03 22:53 | Emergency (ER) | payer MEDICARE, OTHER ==
[~2017-09-03] VITALS: Ht 154.9 cm; Wt 100.0 kg
[2017-09-03 23:13] LABS: GLUCOSE,POINT OF CARE 137 MG/DL (70-110)
[2017-09-03 23:29] LABS: ANION GAP 9 mmol/L (8-16); CALCIUM, TOTAL 9.8 mg/dL (8.8-10.5); CARBON DIOXIDE 23 mmol/L (22-29); CHLORIDE 108 mmol/L (98-107); CREATININE 0.86 mg/dL (0.60-1.30); EOSINOPHILS % (AUTO) 2.2 % (1.0-6.0); GLOMERULAR FILTR. RATE CALC > 60 mL/min (>60); HEMATOCRIT 34.4 % (36-46); HEMOGLOBIN 11.5 g/dL (12.0-16.0); LYMPHOCYTES # (AUTO) 2.7 K/uL (1.0-4.8); LYMPHOCYTES % (AUTO) 35.8 % (22.0-44.0); MEAN CORPUSCULAR HEMOGLOBIN 30.3 pg (26.0-34.0); MEAN CORPUSCULAR HGB CONC 33.5 G/dL (31.0-37.0); MEAN CORPUSCULAR VOLUME 91 fL (80-100); MONOCYTES # (AUTO) 0.6 K/uL (0.1-1.0); MONOCYTES % (AUTO) 7.7 % (2.0-9.0); NEUTROPHILS # (AUTO) 4.1 K/uL (1.8-7.7); NEUTROPHILS % (AUTO) 53.3 % (40.0-70.0); PLATELET COUNT (AUTO) 315 K/uL (150-450); RED CELL DISTRIBUTION WIDTH 13.4 % (11.5-14.5); SODIUM SERUM 140 mmol/L (136-145); UREA NITROGEN, BLOOD 18 mg/dL (7-18); WHITE BLOOD COUNT (AUTO) 7.6 K/uL (4.5-11.0)
[2017-09-03 23:36] LABS: ALANINE AMINOTRANSFERASE 32 U/L (12-78); ALBUMIN 3.6 g/dL (3.4-5.0); ASPARTATE AMINOTRANSFERASE 19 U/L (15-37); BILIRUBIN,TOTAL 0.2 mg/dL (0.1-1.0); TOTAL PROTEIN, SERUM 7.2 g/dL (6.4-8.2)
[2017-09-04] MEDS ORDERED: SODIUM CHLORIDE 0.9% 1,000 ML IV ONE (00:15)
[2017-09-04] MEDS ORDERED: ONDANSETRON HCL 4 MG/2 ML VIAL IVP ONE ×2 (00:15→01:15)
[2017-09-04 01:13] LABS: APPEARANCE,URINE CLEAR (CLEAR); GLUCOSE, URINE (UA) NEGATIVE (NEGATIVE); KETONES,URINE NEGATIVE (NEGATIVE); LEUKOCYTE ESTERASE ,URINE SMALL (NEGATIVE); OCCULT BLOOD,URINE TRACE (NEGATIVE); PH,URINE 5.5 (5.0-8.0); PROTEIN,URINE TRACE (NEGATIVE)
[2017-09-04 01:14] LABS: ADD UA MICROSCOPIC YES
[2017-09-04] MEDS ORDERED: HYOSCYAMINE SULFATE 0.125 MG TAB SL ONE (01:15)
[2017-09-04] MEDS ORDERED: DONNATAL/LIDOCAINE/MAALOX 55 ML BOTTLE PO ONE (01:15)
[2017-09-04 01:34] LABS: SQUAMOUS EPITHELIAL CELL,UR Few /LPF (None Seen)
[2017-09-04] MEDS ORDERED: MORPHINE SULFATE 4 MG/ML SYRINGE IVP ONE (02:15)
[2017-09-04] MEDS ORDERED: BARIUM SULFATE 0.1% SUSPENSION 450 ML BOTTLE PO ONE (03:30)
[2017-09-04] MEDS ORDERED: IOVERSOL 350 MG/ML 150 ML VIAL ONE (03:35)
[2017-09-04 05:47] VITALS: BP 119/79
== END 2017-09-04 05:59 | disposition home or self-care (01) ==
LOC: EMS 22:55
DX: K58.9 Irritable bowel syndrome, unspecified (principal); K43.5 Parastomal hernia without obstruction or gangrene; I10 Essential (primary) hypertension; E11.9 Type 2 diabetes mellitus without complications; I25.10 Atherosclerotic heart disease of native coronary artery without angina pectoris; K21.9 Gastro-esophageal reflux disease without esophagitis; Z87.442 Personal history of urinary calculi; Z90.49 Acquired absence of other specified parts of digestive tract; Z90.710 Acquired absence of both cervix and uterus; Z93.3 Colostomy status; F41.9 Anxiety disorder, unspecified; Z95.0 Presence of cardiac pacemaker; G43.909 Migraine, unspecified, not intractable, without status migrainosus; Z88.6 Allergy status to analgesic agent; Z88.8 Allergy status to other drugs, medicaments and biological substances
CPT/HCPCS: 36415; 74177; 80053; 81001; 82962; 83690; 85025; 87086; 96361; 96374; 96375; 99285; J2270; J2405; J7030; Q9967

== ENCOUNTER 2017-09-17 22:57 | Emergency (ER) | payer MEDICARE, OTHER ==
[~2017-09-17] VITALS: Ht 170.2 cm; Wt 90.9 kg
[2017-09-17 23:07] LABS: GLUCOSE,POINT OF CARE 137 MG/DL (70-110)
[2017-09-17 23:38] LABS: APPEARANCE,URINE CLEAR (CLEAR); GLUCOSE, URINE (UA) NEGATIVE (NEGATIVE); KETONES,URINE NEGATIVE (NEGATIVE); LEUKOCYTE ESTERASE ,URINE SMALL (NEGATIVE); OCCULT BLOOD,URINE NEGATIVE (NEGATIVE); PH,URINE 5.5 (5.0-8.0); PROTEIN,URINE NEGATIVE (NEGATIVE)
[2017-09-18 00:06] LABS: RBC,URINE 0-2 /HPF (0-2); SQUAMOUS EPITHELIAL CELL,UR Rare /LPF (None Seen)
[2017-09-18 00:06] LABS: BASOPHILS # (AUTO) 0.12 K/uL (0.00-0.20); BASOPHILS % (AUTO) 1.4 % (0.0-2.0); EOSINOPHILS # (AUTO) 0.11 K/uL (0.00-0.70); EOSINOPHILS % (AUTO) 1.22 % (1.0-6.0); HEMATOCRIT 35.7 % (36-46); LYMPHOCYTES # (AUTO) 2.9 K/uL (1.0-4.8); LYMPHOCYTES % (AUTO) 33.5 % (22.0-44.0); MEAN CORPUSCULAR HEMOGLOBIN 30.3 pg (26.0-34.0); MEAN CORPUSCULAR HGB CONC 33.4 G/dL (31.0-37.0); MEAN CORPUSCULAR VOLUME 91 fL (80-100); MONOCYTES # (AUTO) 0.7 K/uL (0.1-1.0); MONOCYTES % (AUTO) 7.6 % (2.0-9.0); NEUTROPHILS # (AUTO) 4.9 K/uL (1.8-7.7); NEUTROPHILS % (AUTO) 56.3 % (40.0-70.0); PLATELET COUNT (AUTO) 282 K/uL (150-450); RED BLOOD CELL COUNT(AUTO) 3.95 MIL/uL (4.00-5.20); RED CELL DISTRIBUTION WIDTH 13.6 % (11.5-14.5); WHITE BLOOD COUNT (AUTO) 8.7 K/uL (4.5-11.0)
[2017-09-18 00:21] LABS: ANION GAP 9 mmol/L (8-16); CALCIUM, TOTAL 9.9 mg/dL (8.8-10.5); CARBON DIOXIDE 24 mmol/L (22-29); CHLORIDE 105 mmol/L (98-107); CREATININE 0.82 mg/dL (0.60-1.30); GLOMERULAR FILTR. RATE CALC > 60 mL/min (>60); POTASSIUM 4.4 mmol/L (3.5-5.1); SODIUM SERUM 138 mmol/L (136-145); UREA NITROGEN, BLOOD 26 mg/dL (7-18)
[2017-09-18 00:35] LABS: ALANINE AMINOTRANSFERASE 26 U/L (12-78); ALBUMIN 3.9 g/dL (3.4-5.0); ASPARTATE AMINOTRANSFERASE 16 U/L (15-37); BILIRUBIN,TOTAL 0.1 mg/dL (0.1-1.0); TOTAL PROTEIN, SERUM 7.8 g/dL (6.4-8.2)
[2017-09-18 01:30] VITALS: BP 135/75
== END 2017-09-18 01:48 | disposition home or self-care (01) ==
LOC: EMS 22:59
DX: R10.9 Unspecified abdominal pain (principal); G89.29 Other chronic pain; I25.10 Atherosclerotic heart disease of native coronary artery without angina pectoris; E11.9 Type 2 diabetes mellitus without complications; K21.9 Gastro-esophageal reflux disease without esophagitis; I11.9 Hypertensive heart disease without heart failure; I25.2 Old myocardial infarction; G43.909 Migraine, unspecified, not intractable, without status migrainosus; Z95.0 Presence of cardiac pacemaker; Z88.8 Allergy status to other drugs, medicaments and biological substances; Z87.442 Personal history of urinary calculi
CPT/HCPCS: 82962; 99284

== ENCOUNTER 2017-09-28 12:35 | Emergency (ER) | payer MEDICARE, OTHER ==
[~2017-09-28] VITALS: Ht 154.9 cm; Wt 90.0 kg
[2017-09-28 13:12] LABS: GLUCOSE,POINT OF CARE 145 MG/DL (70-110)
[2017-09-28] MEDS ORDERED: DICL2100G TP (13:25)
[2017-09-28] MEDS ORDERED: SODIUM CHLORIDE 0.9% 1,000 ML IV ONE ×2 (13:30→15:45)
[2017-09-28] MEDS ORDERED: ONDANSETRON HCL 4 MG/2 ML VIAL IVP ONE (13:30)
[2017-09-28] MEDS ORDERED: MORPHINE SULFATE 4 MG/ML SYRINGE IVP ONE (13:30)
[2017-09-28 13:51] LABS: BASOPHILS % (AUTO) 0.1 % (0.0-2.0); EOSINOPHILS % (AUTO) 1.9 % (1.0-6.0); HEMATOCRIT 39.4 % (36-46); HEMOGLOBIN 13.4 g/dL (12.0-16.0); LYMPHOCYTES # (AUTO) 0.9 K/uL (1.0-4.8); MEAN CORPUSCULAR HEMOGLOBIN 30.7 pg (26.0-34.0); MEAN CORPUSCULAR VOLUME 90 fL (80-100); MONOCYTES # (AUTO) 0.3 K/uL (0.1-1.0); MONOCYTES % (AUTO) 4.1 % (2.0-9.0); NEUTROPHILS # (AUTO) 6.3 K/uL (1.8-7.7); NEUTROPHILS % (AUTO) 81.9 % (40.0-70.0); PLATELET COUNT (AUTO) 325 K/uL (150-450); RED BLOOD CELL COUNT(AUTO) 4.36 MIL/uL (4.00-5.20); RED CELL DISTRIBUTION WIDTH 13.6 % (11.5-14.5); WHITE BLOOD COUNT (AUTO) 7.7 K/uL (4.5-11.0)
[2017-09-28 14:11] LABS: ANION GAP 11 mmol/L (8-16); CALCIUM, TOTAL 9.5 mg/dL (8.8-10.5); CARBON DIOXIDE 25 mmol/L (22-29); CHLORIDE 103 mmol/L (98-107); CREATININE 0.75 mg/dL (0.60-1.30); GLOMERULAR FILTR. RATE CALC > 60 mL/min (>60); POTASSIUM 3.6 mmol/L (3.5-5.1); SODIUM SERUM 139 mmol/L (136-145); UREA NITROGEN, BLOOD 13 mg/dL (7-18)
[2017-09-28 14:15] LABS: ALANINE AMINOTRANSFERASE 31 U/L (12-78); ALBUMIN 3.8 g/dL (3.4-5.0); ASPARTATE AMINOTRANSFERASE 24 U/L (15-37); BILIRUBIN,TOTAL 0.4 mg/dL (0.1-1.0)
[2017-09-28 14:55] LABS: INFLUENZA TYPE B NEGATIVE FOR TYPE B (NEGATIVE)
[2017-09-28] MEDS ORDERED: HYDROmorphone 2 MG/ML SYRINGE IVP ONE (15:45)
[2017-09-28 17:16] LABS: APPEARANCE,URINE CLEAR (CLEAR); GLUCOSE, URINE (UA) NEGATIVE (NEGATIVE); KETONES,URINE NEGATIVE (NEGATIVE); LEUKOCYTE ESTERASE ,URINE SMALL (NEGATIVE); OCCULT BLOOD,URINE MODERATE (NEGATIVE); PROTEIN,URINE POS 1+ (NEGATIVE)
[2017-09-28 17:19] LABS: ADD UA MICROSCOPIC YES
[2017-09-28 17:35] LABS: SQUAMOUS EPITHELIAL CELL,UR Few /LPF (None Seen)
[2017-09-28 18:15] VITALS: BP 157/88
== END 2017-09-28 18:37 | disposition home or self-care (01) ==
LOC: EMS 12:38
DX: G43.909 Migraine, unspecified, not intractable, without status migrainosus (principal); R10.9 Unspecified abdominal pain; R11.2 Nausea with vomiting, unspecified; E66.01 Morbid (severe) obesity due to excess calories; E11.9 Type 2 diabetes mellitus without complications; I25.10 Atherosclerotic heart disease of native coronary artery without angina pectoris; K21.9 Gastro-esophageal reflux disease without esophagitis; I11.9 Hypertensive heart disease without heart failure; I25.2 Old myocardial infarction; Z68.37 Body mass index [BMI] 37.0-37.9, adult; Z95.0 Presence of cardiac pacemaker; Z88.8 Allergy status to other drugs, medicaments and biological substances
CPT/HCPCS: 36415; 80053; 80307; 81001; 82962; 83690; 85025; 87040; 87086; 87804; 93005; 96374; 96375; 99285; J1170; J2270; J2405; J7030

== ENCOUNTER → 2017-10-07 | Outpatient (CLI) | payer MEDICARE, OTHER ==
[~2017-10-07] MED LIST changes: +DICL2100G TP; -DICL75TA5 PO
== END | disposition home or self-care (01) ==
LOC: RADPV 10:20
PROVIDERS: ATTEND Specialist
DX: M47.814 Spondylosis without myelopathy or radiculopathy, thoracic region (principal); M41.86 Other forms of scoliosis, lumbar region; M48.061 Spinal stenosis, lumbar region without neurogenic claudication; M25.78 Osteophyte, vertebrae; Z95.810 Presence of automatic (implantable) cardiac defibrillator
CPT/HCPCS: 72070; 72100

== ENCOUNTER 2017-10-13 01:34 | Emergency (ER) | payer MEDICARE, OTHER ==
[~2017-10-13] VITALS: Ht 154.9 cm; Wt 99.0 kg
[2017-10-13] MEDS ORDERED: IBUPROFEN 800 MG TABLET PO ONE (03:30)
[2017-10-13] MEDS ORDERED: DiphenhydrAMINE HCL 50 MG/ML VIAL IM ONE (03:45)
[2017-10-13] MEDS ORDERED: KETOROLAC TROMETHAMINE 30 MG/ML VIAL IM ONE (03:45)
[2017-10-13 03:47] VITALS: BP 150/78
== END 2017-10-13 04:08 | disposition home or self-care (01) ==
LOC: EMS 01:36
DX: M54.5 Low back pain (principal); G89.29 Other chronic pain; E11.9 Type 2 diabetes mellitus without complications; K21.9 Gastro-esophageal reflux disease without esophagitis; I11.9 Hypertensive heart disease without heart failure; I25.10 Atherosclerotic heart disease of native coronary artery without angina pectoris; I25.2 Old myocardial infarction; Z95.0 Presence of cardiac pacemaker; Z88.8 Allergy status to other drugs, medicaments and biological substances
CPT/HCPCS: 96372; 99284; J1200; J1885

== ENCOUNTER → 2017-12-08 | Outpatient (CLI) | payer MEDICARE, OTHER ==
[~2017-12-08] VITALS: Ht 152.4 cm; Wt 100.0 kg
[2017-12-08 13:44] VITALS: BP 141/75
== END | disposition home or self-care (01) ==
LOC: SRCNTR 10:59
PROVIDERS: ATTEND Internal Medicine Clinical Cardiac Electrophysiology
DX: Z45.018 Encounter for adjustment and management of other part of cardiac pacemaker (principal)
CPT/HCPCS: 93288; G0463; Z7610

== ENCOUNTER 2018-01-12 07:28 | Emergency (ER) | payer MEDICARE, OTHER ==
[~2018-01-12] VITALS: Ht 154.9 cm; Wt 96.0 kg
[2018-01-12 07:57] LABS: GLUCOSE,POINT OF CARE 241 MG/DL (70-110)
[2018-01-12] MEDS ORDERED: ACETAMINOPHEN 325 MG TABLET PO ONE (08:30)
[2018-01-12 08:46] LABS: APPEARANCE,URINE CLEAR (CLEAR); BILIRUBIN,URINE NEGATIVE (NEGATIVE); GLUCOSE, URINE (UA) 500 mg/dL (NEGATIVE); KETONES,URINE NEGATIVE (NEGATIVE); LEUKOCYTE ESTERASE ,URINE NEGATIVE (NEGATIVE); NITRATE,URINE NEGATIVE (NEGATIVE); OCCULT BLOOD,URINE NEGATIVE (NEGATIVE); PH,URINE 6.5 (5.0-8.0); PROTEIN,URINE POS 1+ (NEGATIVE); UROBILINOGEN,URINE 0.2 mg/dL (<=1.0)
[2018-01-12 08:55] LABS: BACTERIA,URINE None Seen /HPF (None Seen); RBC,URINE 0-2 /HPF (0-2); SQUAMOUS EPITHELIAL CELL,UR Few /LPF (None Seen); WBC,URINE None Seen /HPF (0-5)
[2018-01-12 09:18] LABS: BASOPHILS % (AUTO) 0.7 % (0.0-2.0); EOSINOPHILS % (AUTO) 3.5 % (1.0-6.0); HEMATOCRIT 34.8 % (36-46); LYMPHOCYTES # (AUTO) 2.1 K/uL (1.0-4.8); LYMPHOCYTES % (AUTO) 33.9 % (22.0-44.0); MEAN CORPUSCULAR HEMOGLOBIN 30.2 pg (26.0-34.0); MEAN CORPUSCULAR HGB CONC 34.4 G/dL (31.0-37.0); MEAN CORPUSCULAR VOLUME 88 fL (80-100); MONOCYTES # (AUTO) 0.5 K/uL (0.1-1.0); MONOCYTES % (AUTO) 8.4 % (2.0-9.0); NEUTROPHILS # (AUTO) 3.3 K/uL (1.8-7.7); NEUTROPHILS % (AUTO) 53.5 % (40.0-70.0); PLATELET COUNT (AUTO) 303 K/uL (150-450); RED BLOOD CELL COUNT(AUTO) 3.97 MIL/uL (4.00-5.20); RED CELL DISTRIBUTION WIDTH 12.5 % (11.5-14.5)
[2018-01-12 09:38] LABS: ANION GAP 10 mmol/L (8-16); CALCIUM, TOTAL 9.5 mg/dL (8.8-10.5); CARBON DIOXIDE 27 mmol/L (22-29); CHLORIDE 103 mmol/L (98-107); CREATININE 0.69 mg/dL (0.60-1.30); GLOMERULAR FILTR. RATE CALC > 60 mL/min (>60); GLUCOSE,RANDOM 216 mg/dL (70-110); POTASSIUM 3.8 mmol/L (3.5-5.1); SODIUM SERUM 140 mmol/L (136-145); UREA NITROGEN, BLOOD 13 mg/dL (7-18)
[2018-01-12 09:44] LABS: ALANINE AMINOTRANSFERASE 38 U/L (12-78); ALBUMIN 3.4 g/dL (3.4-5.0); ALKALINE PHOSPHATASE 73 U/L (46-116); ASPARTATE AMINOTRANSFERASE 22 U/L (15-37); BILIRUBIN,TOTAL 0.2 mg/dL (0.1-1.0); TOTAL PROTEIN, SERUM 7.1 g/dL (6.4-8.2)
[2018-01-12] MEDS ORDERED: MORPHINE SULFATE 4 MG/ML SYRINGE IM ONE (10:00)
[2018-01-12 10:34] VITALS: BP 105/68
== END 2018-01-12 10:40 | disposition home or self-care (01) ==
LOC: EMS 07:32
DX: M51.36 Other intervertebral disc degeneration, lumbar region (principal); R81 Glycosuria; I25.10 Atherosclerotic heart disease of native coronary artery without angina pectoris; E11.9 Type 2 diabetes mellitus without complications; K21.9 Gastro-esophageal reflux disease without esophagitis; I11.9 Hypertensive heart disease without heart failure; I25.2 Old myocardial infarction; G43.909 Migraine, unspecified, not intractable, without status migrainosus; G89.29 Other chronic pain; Z95.0 Presence of cardiac pacemaker; Z87.442 Personal history of urinary calculi; Z88.8 Allergy status to other drugs, medicaments and biological substances
CPT/HCPCS: 36415; 72100; 80053; 81001; 82962; 85025; 96372; 99285; J2270

== ENCOUNTER 2018-01-27 07:11 | Emergency (ER) | payer MEDICARE, OTHER ==
[~2018-01-27] VITALS: Ht 157.5 cm; Wt 96.0 kg
[2018-01-27 07:22] LABS: GLUCOSE,POINT OF CARE 155 MG/DL (70-110)
[2018-01-27] MEDS ORDERED: FERR-89 PO (07:23)
[2018-01-27] MEDS ORDERED: GABA-531 PO (07:23)
[2018-01-27 08:02] LABS: APPEARANCE,URINE CLEAR (CLEAR); BILIRUBIN,URINE NEGATIVE (NEGATIVE); GLUCOSE, URINE (UA) NEGATIVE (NEGATIVE); KETONES,URINE NEGATIVE (NEGATIVE); LEUKOCYTE ESTERASE ,URINE NEGATIVE (NEGATIVE); NITRATE,URINE NEGATIVE (NEGATIVE); OCCULT BLOOD,URINE TRACE (NEGATIVE); PH,URINE 5.5 (5.0-8.0); PROTEIN,URINE SEE CONFIRM (NEGATIVE); UROBILINOGEN,URINE 0.2 mg/dL (<=1.0)
[2018-01-27 08:18] LABS: BACTERIA,URINE Rare /HPF (None Seen); RBC,URINE 0-2 /HPF (0-2); SQUAMOUS EPITHELIAL CELL,UR Few /LPF (None Seen); SULFOSALICYLIC ACID,URINE 2+ (Negative); WBC,URINE 0-2 /HPF (0-5)
[2018-01-27 08:41] VITALS: BP 148/69
[2018-01-27] MEDS ORDERED: DiphenhydrAMINE HCL 50 MG/ML VIAL IM ONE (08:45)
[2018-01-27] MEDS ORDERED: KETOROLAC TROMETHAMINE 60 MG/2 ML VIAL IM ONE (08:45)
== END 2018-01-27 08:46 | disposition home or self-care (01) ==
LOC: EMS 07:12
DX: G89.29 Other chronic pain (principal); M54.5 Low back pain; E11.9 Type 2 diabetes mellitus without complications; F41.9 Anxiety disorder, unspecified; I10 Essential (primary) hypertension; I25.10 Atherosclerotic heart disease of native coronary artery without angina pectoris; K21.9 Gastro-esophageal reflux disease without esophagitis; Z79.84 Long term (current) use of oral hypoglycemic drugs; Z87.442 Personal history of urinary calculi; Z90.49 Acquired absence of other specified parts of digestive tract; Z90.710 Acquired absence of both cervix and uterus; Z95.0 Presence of cardiac pacemaker
CPT/HCPCS: 82962; 99283

== ENCOUNTER → 2018-05-03 | Outpatient (CLI) | payer MEDICARE, OTHER ==
[~2018-05-03] VITALS: Ht 152.4 cm; Wt 98.0 kg
[~2018-05-03] MED LIST changes: +ASPI81TA87 PO; -DICL2100G TP; +FERR-89 PO; +GABA-531 PO; +NITR0.4T50 SL
[2018-05-03 11:45] VITALS: BP 148/80
== END | disposition home or self-care (01) ==
LOC: SRCNTR 11:07
PROVIDERS: ATTEND Internal Medicine Cardiovascular Disease
DX: I11.9 Hypertensive heart disease without heart failure (principal); I25.10 Atherosclerotic heart disease of native coronary artery without angina pectoris; E78.5 Hyperlipidemia, unspecified; E11.9 Type 2 diabetes mellitus without complications; K57.30 Diverticulosis of large intestine without perforation or abscess without bleeding; G43.909 Migraine, unspecified, not intractable, without status migrainosus; E66.9 Obesity, unspecified; K43.9 Ventral hernia without obstruction or gangrene; Z95.810 Presence of automatic (implantable) cardiac defibrillator
CPT/HCPCS: G0463

== ENCOUNTER 2018-07-12 05:24 | Emergency (ER) | payer MEDICARE, OTHER ==
[~2018-07-12] VITALS: Ht 157.5 cm; Wt 96.0 kg
[~2018-07-12 05:24] MED LIST changes: -HYDR-305 PO; +HYDR-4455 PO
[2018-07-12 05:45] LABS: GLUCOSE,POINT OF CARE 108 MG/DL (70-110)
[2018-07-12 06:07] LABS: BASOPHILS % (AUTO) 0.5 % (0.0-2.0); EOSINOPHILS % (AUTO) 2.4 % (1.0-6.0); HEMATOCRIT 36.4 % (36-46); HEMOGLOBIN 12.2 g/dL (12.0-16.0); LYMPHOCYTES # (AUTO) 2.6 K/uL (1.0-4.8); LYMPHOCYTES % (AUTO) 42.4 % (22.0-44.0); MEAN CORPUSCULAR HEMOGLOBIN 29.9 pg (26.0-34.0); MEAN CORPUSCULAR HGB CONC 33.6 G/dL (31.0-37.0); MEAN CORPUSCULAR VOLUME 89 fL (80-100); MONOCYTES # (AUTO) 0.6 K/uL (0.1-1.0); MONOCYTES % (AUTO) 9.2 % (2.0-9.0); NEUTROPHILS # (AUTO) 2.8 K/uL (1.8-7.7); NEUTROPHILS % (AUTO) 45.5 % (40.0-70.0); PLATELET COUNT (AUTO) 326 K/uL (150-450); RED BLOOD CELL COUNT(AUTO) 4.09 MIL/uL (4.00-5.20); RED CELL DISTRIBUTION WIDTH 13.3 % (11.5-14.5)
[2018-07-12 06:08] LABS: APPEARANCE,URINE CLEAR (CLEAR); BILIRUBIN,URINE NEGATIVE (NEGATIVE); GLUCOSE, URINE (UA) NEGATIVE (NEGATIVE); KETONES,URINE NEGATIVE (NEGATIVE); LEUKOCYTE ESTERASE ,URINE NEGATIVE (NEGATIVE); NITRATE,URINE NEGATIVE (NEGATIVE); OCCULT BLOOD,URINE NEGATIVE (NEGATIVE); PROTEIN,URINE NEGATIVE (NEGATIVE); UROBILINOGEN,URINE 0.2 mg/dL (<=1.0)
[2018-07-12 06:12] LABS: AMPHET/METH SCREEN,URINE NEGATIVE (NEGATIVE); BARBITURATE SCREEN, URINE NEGATIVE (NEGATIVE); BENZODIAZEPINES SCREEN,URINE NEGATIVE (NEGATIVE); CANNABINOID SCREEN,URINE NEGATIVE (NEGATIVE); COCAINE SCREEN,URINE NEGATIVE (NEGATIVE); METHADONE SCREEN, URINE NEGATIVE (NEGATIVE); OPIATE SCREEN,URINE NEGATIVE (NEGATIVE); PHENCYCLIDINE SCREEN,URINE NEGATIVE (NEGATIVE)
[2018-07-12 06:14] LABS: ANION GAP 6 mmol/L (8-16); CALCIUM, TOTAL 9.6 mg/dL (8.8-10.5); CARBON DIOXIDE 28 mmol/L (22-29); CHLORIDE 107 mmol/L (98-107); CREATININE 0.83 mg/dL (0.60-1.30); GLOMERULAR FILTR. RATE CALC > 60 mL/min (>60); GLUCOSE,RANDOM 155 mg/dL (70-110); POTASSIUM 3.9 mmol/L (3.5-5.1); SODIUM SERUM 141 mmol/L (136-145); UREA NITROGEN, BLOOD 16 mg/dL (7-18)
[2018-07-12 06:22] LABS: ALANINE AMINOTRANSFERASE 36 U/L (12-78); ALBUMIN 3.7 g/dL (3.4-5.0); ALKALINE PHOSPHATASE 94 U/L (46-116); ASPARTATE AMINOTRANSFERASE 18 U/L (15-37); BILIRUBIN,TOTAL 0.2 mg/dL (0.1-1.0); LIPASE 119 U/L (73-393); TOTAL PROTEIN, SERUM 7.6 g/dL (6.4-8.2)
[2018-07-12] MEDS ORDERED: ONDANSETRON HCL 4 MG/2 ML VIAL IVP ONE (06:30)
[2018-07-12] MEDS ORDERED: HYDROCODONE/ACETAMINOPHEN 5-325 MG TABLET PO ONE (06:30)
[2018-07-12] MEDS ORDERED: PB/HYOSCY/ATR/SCOP/LIDO/MAALOX 55 ML BOTTLE PO ONE (06:30)
[2018-07-12] MEDS ORDERED: PANTOPRAZOLE SODIUM 40 MG/VIAL IVP ONE (06:30)
[2018-07-12 07:10] VITALS: BP 146/92
== END 2018-07-12 07:19 | disposition home or self-care (01) ==
LOC: EMS 05:25
DX: K21.9 Gastro-esophageal reflux disease without esophagitis (principal); F41.9 Anxiety disorder, unspecified; I25.10 Atherosclerotic heart disease of native coronary artery without angina pectoris; E11.9 Type 2 diabetes mellitus without complications; I11.9 Hypertensive heart disease without heart failure; I25.2 Old myocardial infarction; G43.909 Migraine, unspecified, not intractable, without status migrainosus; G89.29 Other chronic pain; Z87.442 Personal history of urinary calculi; Z93.3 Colostomy status; Z95.0 Presence of cardiac pacemaker; Z90.49 Acquired absence of other specified parts of digestive tract; Z90.710 Acquired absence of both cervix and uterus; Z88.6 Allergy status to analgesic agent; Z88.8 Allergy status to other drugs, medicaments and biological substances; Z79.82 Long term (current) use of aspirin; Z79.84 Long term (current) use of oral hypoglycemic drugs
CPT/HCPCS: 36415; 80053; 80307; 81003; 82962; 83690; 84484; 85025; 93005; 96374; 96375; 99285; C9113; J2405

== ENCOUNTER 2018-09-04 12:44 | Emergency (ER) | payer MEDICARE, OTHER ==
[~2018-09-04] VITALS: Ht 154.9 cm; Wt 98.2 kg
[2018-09-04 13:00] VITALS: BP 114/92
[2018-09-04 13:14] LABS: GLUCOSE,POINT OF CARE 102 MG/DL (70-110)
[2018-09-04 13:58] LABS: BILIRUBIN,URINE NEGATIVE (NEGATIVE); GLUCOSE, URINE (UA) NEGATIVE (NEGATIVE); KETONES,URINE TRACE mg/dL (NEGATIVE); LEUKOCYTE ESTERASE ,URINE MODERATE (NEGATIVE); NITRATE,URINE NEGATIVE (NEGATIVE); OCCULT BLOOD,URINE NEGATIVE (NEGATIVE); PROTEIN,URINE POS 1+ (NEGATIVE); UROBILINOGEN,URINE 0.2 mg/dL (<=1.0)
[2018-09-04 14:01] LABS: APPEARANCE,URINE HAZY (CLEAR); BACTERIA,URINE Few /HPF (None Seen); RBC,URINE 0-2 /HPF (0-2)
[2018-09-04 14:02] LABS: SQUAMOUS EPITHELIAL CELL,UR Rare /LPF (None Seen)
[2018-09-04] MEDS ORDERED: ONDANSETRON HCL 4 MG TABLET PO ONE (15:30)
[2018-09-04] MEDS ORDERED: NAPROXEN 250 MG TABLET PO ONE (15:30)
== END 2018-09-04 15:51 | disposition home or self-care (01) ==
LOC: EMS 12:46
DX: N20.9 Urinary calculus, unspecified (principal); F41.9 Anxiety disorder, unspecified; I25.10 Atherosclerotic heart disease of native coronary artery without angina pectoris; I11.9 Hypertensive heart disease without heart failure; K21.9 Gastro-esophageal reflux disease without esophagitis; E11.9 Type 2 diabetes mellitus without complications; I25.2 Old myocardial infarction; G43.909 Migraine, unspecified, not intractable, without status migrainosus; G89.29 Other chronic pain; Z95.0 Presence of cardiac pacemaker; Z93.3 Colostomy status; Z90.49 Acquired absence of other specified parts of digestive tract; Z90.710 Acquired absence of both cervix and uterus; Z88.6 Allergy status to analgesic agent; Z88.8 Allergy status to other drugs, medicaments and biological substances; Z79.82 Long term (current) use of aspirin; Z79.84 Long term (current) use of oral hypoglycemic drugs
CPT/HCPCS: 81001; 82962; 87086; 99283; Q0162

== ENCOUNTER 2018-10-24 13:06 | Emergency (ER) | payer MEDICARE, OTHER ==
[~2018-10-24] VITALS: Ht 154.9 cm; Wt 98.1 kg
[~2018-10-24 13:06] MED LIST changes: -GABA-318 PO; +GABA600T10 PO
[2018-10-24 13:24] LABS: GLUCOSE,POINT OF CARE 176 MG/DL (70-110)
[2018-10-24 15:20] VITALS: BP 128/77
== END 2018-10-24 15:44 | disposition home or self-care (01) ==
LOC: EMS 13:07
DX: S46.911A Strain of unspecified muscle, fascia and tendon at shoulder and upper arm level, right arm, initial encounter (principal); K04.7 Periapical abscess without sinus; E11.65 Type 2 diabetes mellitus with hyperglycemia; I25.10 Atherosclerotic heart disease of native coronary artery without angina pectoris; F41.9 Anxiety disorder, unspecified; K21.9 Gastro-esophageal reflux disease without esophagitis; I11.9 Hypertensive heart disease without heart failure; I25.2 Old myocardial infarction; G43.909 Migraine, unspecified, not intractable, without status migrainosus; G89.29 Other chronic pain; Z95.0 Presence of cardiac pacemaker; Z90.49 Acquired absence of other specified parts of digestive tract; Z90.710 Acquired absence of both cervix and uterus; Z88.8 Allergy status to other drugs, medicaments and biological substances; Z88.6 Allergy status to analgesic agent; Z79.82 Long term (current) use of aspirin; Z79.84 Long term (current) use of oral hypoglycemic drugs; X58.XXXA Exposure to other specified factors, initial encounter; Y93.89 Activity, other specified; Y92.89 Other specified places as the place of occurrence of the external cause; Y99.8 Other external cause status
CPT/HCPCS: 29240

== ENCOUNTER → 2018-11-10 | Outpatient (CLI) | payer MEDICARE, OTHER ==
[~2018-11-10] VITALS: Ht 152.4 cm; Wt 97.5 kg
[2018-11-10 11:14] VITALS: BP 135/68
== END | disposition home or self-care (01) ==
LOC: SRCNTR 10:52
PROVIDERS: ATTEND Internal Medicine Cardiovascular Disease
DX: I10 Essential (primary) hypertension (principal); E78.5 Hyperlipidemia, unspecified; E11.9 Type 2 diabetes mellitus without complications; Z95.0 Presence of cardiac pacemaker; R94.31 Abnormal electrocardiogram [ECG] [EKG]
CPT/HCPCS: 93005; G0463

== ENCOUNTER 2019-03-06 13:05 | Emergency (ER) | payer MEDICARE, OTHER ==
[~2019-03-06] VITALS: Ht 157.5 cm; Wt 95.5 kg
[~2019-03-06 13:05] MED LIST changes: -GLIP5 PO
[2019-03-06 13:13] VITALS: BP 131/86
[2019-03-06 13:24] LABS: GLUCOSE,POINT OF CARE 156 MG/DL (70-110)
== END 2019-03-06 15:01 | disposition left against medical advice (07) ==
LOC: EMS 13:08
DX: M54.2 Cervicalgia (principal); I25.10 Atherosclerotic heart disease of native coronary artery without angina pectoris; E11.9 Type 2 diabetes mellitus without complications; I11.9 Hypertensive heart disease without heart failure; K21.9 Gastro-esophageal reflux disease without esophagitis; I25.2 Old myocardial infarction; G43.909 Migraine, unspecified, not intractable, without status migrainosus; G89.29 Other chronic pain; F41.9 Anxiety disorder, unspecified; Z90.710 Acquired absence of both cervix and uterus; Z90.49 Acquired absence of other specified parts of digestive tract; Z79.84 Long term (current) use of oral hypoglycemic drugs; Z88.6 Allergy status to analgesic agent; Z88.8 Allergy status to other drugs, medicaments and biological substances; Z79.82 Long term (current) use of aspirin; Z95.0 Presence of cardiac pacemaker

== ENCOUNTER 2020-02-23 09:46 | Emergency (ER) | payer MEDICARE, OTHER ==
[~2020-02-23] VITALS: Ht 154.9 cm; Wt 81.8 kg
[~2020-02-23 09:46] MED LIST changes: -AMLO-512 PO; +AMLO10TA7 PO; -CARI350 PO; +CARI350T26 PO; +GABA-1181 PO; -GABA-531 PO
[2020-02-23] MEDS ORDERED: ACETAMINOPHEN 500 MG TABLET PO ONE (10:15)
[2020-02-23] MEDS: LIDOCAINE 5% TRANSDERMAL PATCH TD ONE ×2 (10:29→10:33)
[2020-02-23 10:32] LABS: BASOPHILS % (AUTO) 0.7 % (0.0-2.0); EOSINOPHILS % (AUTO) 2.6 % (1.0-6.0); HEMATOCRIT 35.8 % (36-46); HEMOGLOBIN 11.3 g/dL (12.0-16.0); LYMPHOCYTES # (AUTO) 1.4 K/uL (1.0-4.8); LYMPHOCYTES % (AUTO) 25.1 % (22.0-44.0); MEAN CORPUSCULAR HEMOGLOBIN 27.3 pg (26.0-34.0); MEAN CORPUSCULAR HGB CONC 31.6 G/dL (31.0-37.0); MEAN CORPUSCULAR VOLUME 86 fL (80-100); MONOCYTES # (AUTO) 0.4 K/uL (0.1-1.0); MONOCYTES % (AUTO) 6.3 % (2.0-9.0); NEUTROPHILS # (AUTO) 3.7 K/uL (1.8-7.7); NEUTROPHILS % (AUTO) 65.3 % (40.0-70.0); PLATELET COUNT (AUTO) 403 K/uL (150-450); RED BLOOD CELL COUNT(AUTO) 4.14 MIL/uL (4.00-5.20); RED CELL DISTRIBUTION WIDTH 13.8 % (11.5-14.5)
[2020-02-23 10:39] LABS: APPEARANCE,URINE CLEAR (CLEAR); BILIRUBIN,URINE NEGATIVE (NEGATIVE); GLUCOSE, URINE (UA) >=1000 mg/dL (NEGATIVE); KETONES,URINE NEGATIVE (NEGATIVE); NITRATE,URINE NEGATIVE (NEGATIVE); OCCULT BLOOD,URINE TRACE (NEGATIVE); PH,URINE 5.5 (5.0-8.0); PROTEIN,URINE NEGATIVE (NEGATIVE); UROBILINOGEN,URINE 0.2 mg/dL (<=1.0)
[2020-02-23 10:42] LABS: LEUKOCYTE ESTERASE ,URINE TRACE (NEGATIVE)
[2020-02-23 10:43] LABS: BACTERIA,URINE None Seen /HPF (None Seen); RBC,URINE 0-2 /HPF (0-2); WBC,URINE 0-2 /HPF (0-5)
[2020-02-23 10:55] LABS: ANION GAP 7 mmol/L (8-16); CALCIUM, TOTAL 9.5 mg/dL (8.8-10.5); CARBON DIOXIDE 29 mmol/L (22-29); CHLORIDE 105 mmol/L (98-107); CREATININE 0.84 mg/dL (0.60-1.30); GLOMERULAR FILTR. RATE CALC > 60 mL/min (>60); GLUCOSE,RANDOM 389 mg/dL (70-110); POTASSIUM 4.6 mmol/L (3.5-5.1); SODIUM SERUM 141 mmol/L (136-145); UREA NITROGEN, BLOOD 17 mg/dL (7-18)
[2020-02-23 10:59] LABS: ALANINE AMINOTRANSFERASE 19 U/L (12-78); ALBUMIN 3.6 g/dL (3.4-5.0); ALKALINE PHOSPHATASE 87 U/L (46-116); ASPARTATE AMINOTRANSFERASE 12 U/L (15-37); BILIRUBIN,TOTAL 0.2 mg/dL (0.1-1.0); TOTAL PROTEIN, SERUM 7.9 g/dL (6.4-8.2)
[2020-02-23] MEDS ORDERED: SODIUM CHLORIDE 0.9% 1,000 ML IV ONE (11:15)
[2020-02-23 12:45] VITALS: BP 130/69
[2020-02-23 13:16] LABS: GLUCOSE,POINT OF CARE 167 MG/DL (70-110)
== END 2020-02-23 13:12 | disposition home or self-care (01) ==
LOC: EMS 09:59
DX: E11.65 Type 2 diabetes mellitus with hyperglycemia (principal); M54.5 Low back pain; G89.29 Other chronic pain; F41.9 Anxiety disorder, unspecified; I25.10 Atherosclerotic heart disease of native coronary artery without angina pectoris; K21.9 Gastro-esophageal reflux disease without esophagitis; I11.9 Hypertensive heart disease without heart failure; I25.2 Old myocardial infarction; G43.909 Migraine, unspecified, not intractable, without status migrainosus; Z90.711 Acquired absence of uterus with remaining cervical stump; Z90.89 Acquired absence of other organs; Z79.84 Long term (current) use of oral hypoglycemic drugs; Z79.82 Long term (current) use of aspirin; Z88.5 Allergy status to narcotic agent; Z88.8 Allergy status to other drugs, medicaments and biological substances
CPT/HCPCS: 36415; 80053; 81001; 82962; 85025; 96360; 99283; J7030

== ENCOUNTER → 2020-04-20 | Outpatient (CLI) | payer MEDICARE, OTHER ==
[~2020-04-20] VITALS: Ht 149.9 cm; Wt 93.2 kg
[~2020-04-20] MED LIST changes: +AMLO-258 PO; -AMLO10TA7 PO; +EMPA10TA PO; +OMEP20 PO; +ONDA-104 PO; +SITA100 PO
[2020-04-20 11:32] VITALS: BP 122/81
== END | disposition home or self-care (01) ==
LOC: SRCNTR 11:30
PROVIDERS: ATTEND Internal Medicine Clinical Cardiac Electrophysiology
DX: Z45.02 Encounter for adjustment and management of automatic implantable cardiac defibrillator (principal); I49.9 Cardiac arrhythmia, unspecified; E11.9 Type 2 diabetes mellitus without complications; I25.10 Atherosclerotic heart disease of native coronary artery without angina pectoris; K21.9 Gastro-esophageal reflux disease without esophagitis; I10 Essential (primary) hypertension; Z90.49 Acquired absence of other specified parts of digestive tract; Z90.710 Acquired absence of both cervix and uterus
CPT/HCPCS: G0463; Z7500

== ENCOUNTER → 2020-04-23 | Outpatient (CLI) | payer MEDICARE, OTHER ==
[~2020-04-23] VITALS: Ht 149.9 cm; Wt 93.0 kg
[2020-04-23 10:14] VITALS: BP 109/62
== END | disposition home or self-care (01) ==
LOC: SRCNTR 10:14
PROVIDERS: ATTEND Internal Medicine Cardiovascular Disease
DX: Z09 Encounter for follow-up examination after completed treatment for conditions other than malignant neoplasm (principal); E11.9 Type 2 diabetes mellitus without complications; I10 Essential (primary) hypertension; E78.5 Hyperlipidemia, unspecified; E66.01 Morbid (severe) obesity due to excess calories; Z95.810 Presence of automatic (implantable) cardiac defibrillator
CPT/HCPCS: G0463; Z7500

== ENCOUNTER → 2020-07-17 | Outpatient (CLI) | payer MEDICARE, OTHER ==
[~2020-07-17] VITALS: Ht 149.9 cm; Wt 93.5 kg
[~2020-07-17] MED LIST changes: -FERR-89 PO; -GABA-1181 PO; -NITR0.4T50 SL
[2020-07-17 09:58] VITALS: BP 103/54
== END | disposition home or self-care (01) ==
LOC: SRCNTR 09:57
PROVIDERS: ATTEND Internal Medicine Clinical Cardiac Electrophysiology
DX: Z45.02 Encounter for adjustment and management of automatic implantable cardiac defibrillator (principal)
CPT/HCPCS: 93289; G0463

== ENCOUNTER → 2020-07-23 | Outpatient (CLI) | payer MEDICARE, OTHER ==
[~2020-07-23] VITALS: Ht 149.9 cm; Wt 95.0 kg
[2020-07-23 10:12] VITALS: BP 119/68
== END | disposition home or self-care (01) ==
LOC: SRCNTR 10:11
PROVIDERS: ATTEND Internal Medicine Cardiovascular Disease
DX: R94.31 Abnormal electrocardiogram [ECG] [EKG] (principal); E78.5 Hyperlipidemia, unspecified; E66.9 Obesity, unspecified; I10 Essential (primary) hypertension; E11.9 Type 2 diabetes mellitus without complications; R07.9 Chest pain, unspecified; M25.512 Pain in left shoulder; Z95.0 Presence of cardiac pacemaker
CPT/HCPCS: 93005; G0463

== ENCOUNTER → 2020-07-30 | Outpatient (CLI) | payer MEDICARE, OTHER ==
[~2020-07-30] MED LIST changes: +SESTAMIBI TC99M/UD ISOTOPE 1 EA INJ INJ ONE
== END | disposition home or self-care (01) ==
LOC: RADMN 11:35
PROVIDERS: ATTEND Internal Medicine
DX: M51.16 Intervertebral disc disorders with radiculopathy, lumbar region (principal); M48.061 Spinal stenosis, lumbar region without neurogenic claudication; M51.17 Intervertebral disc disorders with radiculopathy, lumbosacral region; M41.86 Other forms of scoliosis, lumbar region; R07.9 Chest pain, unspecified
CPT/HCPCS: 72131; 78452; A9500

== ENCOUNTER → 2020-07-30 | Outpatient (CLI) | payer MEDICARE, OTHER ==
[~2020-07-30] MED LIST changes: +REGADENOSON 0.4 MG/5 ML PF SYRINGE IVP ONE; -SESTAMIBI TC99M/UD ISOTOPE 1 EA INJ INJ ONE
[2020-07-30 08:50] VITALS: BP 120/73
[2020-07-30 09:42] VITALS: BP 135/68
== END | disposition home or self-care (01) ==
LOC: CARDMN 08:36
PROVIDERS: ATTEND Internal Medicine Cardiovascular Disease
DX: I51.7 Cardiomegaly (principal)
CPT/HCPCS: 93017; 93306; J2785

== ENCOUNTER → 2020-11-26 | Outpatient (CLI) | payer MEDICARE, OTHER ==
[~2020-11-26] VITALS: Ht 149.9 cm; Wt 97.0 kg
[~2020-11-26] MED LIST changes: -HYDR-4455 PO; +OXYC-43 PO; -REGADENOSON 0.4 MG/5 ML PF SYRINGE IVP ONE
[2020-11-26 10:38] VITALS: BP 118/64
== END | disposition home or self-care (01) ==
LOC: SRCNTR 10:08
PROVIDERS: ATTEND Internal Medicine Cardiovascular Disease
DX: E11.9 Type 2 diabetes mellitus without complications (principal); E78.5 Hyperlipidemia, unspecified; I10 Essential (primary) hypertension; E66.9 Obesity, unspecified; M54.5 Low back pain; Z86.74 Personal history of sudden cardiac arrest; Z95.810 Presence of automatic (implantable) cardiac defibrillator
CPT/HCPCS: G0463; Z7500

== ENCOUNTER → 2021-04-09 | Outpatient (CLI) | payer MEDICARE, OTHER ==
[~2021-04-09] VITALS: Ht 147.3 cm; Wt 95.4 kg
[2021-04-09 10:36] VITALS: BP 119/67
== END | disposition home or self-care (01) ==
LOC: SRCNTR 09:44
PROVIDERS: ATTEND Internal Medicine Clinical Cardiac Electrophysiology
DX: Z45.02 Encounter for adjustment and management of automatic implantable cardiac defibrillator (principal)
CPT/HCPCS: 93289; G0463

== ENCOUNTER 2021-06-17 20:56 | Inpatient (IN) | payer MEDICARE, OTHER ==
[~2021-06-17] VITALS: Ht 154.9 cm; Wt 101.0 kg
[2021-06-17] MEDS ORDERED: FAMOTIDINE 10 MG/ML 2 ML VIAL IVP ONE (22:15)
[2021-06-17] MEDS ORDERED: ONDANSETRON HCL 4 MG/2 ML VIAL IVP ONE (22:15)
[2021-06-17] MEDS ORDERED: SODIUM CHLORIDE 0.9% 1,000 ML IV ONE (22:15)
[2021-06-17] MEDS ORDERED: VANCOMYCIN HCL 1 GM/D5% WATER 200 ML IV ONE (22:15)
[2021-06-17] MEDS ORDERED: 0.9% SODIUM CHLORIDE 10 ML SYRINGE IVP PRN (22:15)
[2021-06-17] MEDS ORDERED: ACETAMINOPHEN 500 MG TABLET PO ONE (22:15)
[2021-06-17] MEDS ORDERED: PIPERACILLIN/TAZO 3.375 GM/D5W 50 ML IV ONE (22:15)
[2021-06-17 22:42] LABS: BASOPHILS % (AUTO) 0.3 % (0.0-2.0); EOSINOPHILS % (AUTO) 2.1 % (1.0-6.0); HEMATOCRIT 34.1 % (36-46); HEMOGLOBIN 11.3 g/dL (12.0-16.0); LYMPHOCYTES % (AUTO) 20.6 % (22.0-44.0); MEAN CORPUSCULAR HEMOGLOBIN 29.6 pg (26.0-34.0); MEAN CORPUSCULAR HGB CONC 33.3 G/dL (31.0-37.0); MEAN CORPUSCULAR VOLUME 89 fL (80-100); MONOCYTES # (AUTO) 0.7 K/uL (0.1-1.0); MONOCYTES % (AUTO) 7.3 % (2.0-9.0); NEUTROPHILS # (AUTO) 6.9 K/uL (1.8-7.7); NEUTROPHILS % (AUTO) 69.7 % (40.0-70.0); PLATELET COUNT (AUTO) 297 K/uL (150-450); RED BLOOD CELL COUNT(AUTO) 3.84 MIL/uL (4.00-5.20); RED CELL DISTRIBUTION WIDTH 13.5 % (11.5-14.5)
[2021-06-17 22:45] LABS: COVID AG,FIA SOURCE NASOPHARYNGEAL
[2021-06-17 22:52] LABS: ANION GAP 9 mmol/L (8-16); CALCIUM, TOTAL 8.8 mg/dL (8.8-10.5); CARBON DIOXIDE 26 mmol/L (22-29); CHLORIDE 103 mmol/L (98-107); CREATININE 0.97 mg/dL (0.60-1.30); GLOMERULAR FILTR. RATE CALC 59 mL/min (>60); GLUCOSE,RANDOM 209 mg/dL (70-110); POTASSIUM 3.9 mmol/L (3.5-5.1); SODIUM SERUM 138 mmol/L (136-145); UREA NITROGEN, BLOOD 16 mg/dL (7-18)
[2021-06-17 22:53] LABS: D-DIMER 1.67 mg/L FEU (0.00-0.50); INR 1.1 (0.9-1.1); PROTHROMBIN TIME 11.9 SEC (9.4-11.6)
[2021-06-17 23:01] LABS: LACTIC ACID 1.1 mmol/L (0.4-2.0)
[2021-06-17 23:04] LABS: B-TYPE NATRIURETIC PEPTIDE 14 pg/mL (0-100)
[2021-06-17 23:08] LABS: INFLUENZA TYPE A NEGATIVE FOR TYPE A (NEGATIVE); INFLUENZA TYPE B NEGATIVE FOR TYPE B (NEGATIVE)
[2021-06-17 23:17] LABS: ALANINE AMINOTRANSFERASE 34 U/L (12-78); ALBUMIN 3.3 g/dL (3.4-5.0); ALKALINE PHOSPHATASE 66 U/L (46-116); ASPARTATE AMINOTRANSFERASE 23 U/L (15-37); BILIRUBIN,TOTAL 0.2 mg/dL (0.1-1.0); CREATINE KINASE, TOTAL ONLY 97 U/L (26-192); HCG,QUANTITATIVE 1 mIU/mL (0-6); LIPASE 104 U/L (73-393); TOTAL PROTEIN, SERUM 7.3 g/dL (6.4-8.2)
[2021-06-17] MEDS ORDERED: ACETAMINOPHEN 1000 MG/ISO-OSM 100 ML IV ONE (23:30)
[2021-06-17] MEDS ORDERED: ACETAMINOPHEN 325 MG TABLET PO PRN (23:45)
[2021-06-17] MEDS ORDERED: ONDANSETRON HCL 4 MG/2 ML VIAL IVP PRN (23:45)
[2021-06-17] MEDS ORDERED: OxyCODONE HCL/ACETAMINOPHEN 5-325 MG TABLET PO PRN (23:45)
[2021-06-17] MEDS ORDERED: DEXTROSE 50%-WATER 25 GM/50 ML SYRINGE IVP PRN (23:45)
[2021-06-18] VITALS (7 sets, daily range): BP systolic 103–145; BP diastolic 67–77
[2021-06-18] MEDS ORDERED: IOHEXOL 350 MG/ML 100 ML VIAL ONE (00:14)
[2021-06-18] MEDS ORDERED: SODIUM CHLORIDE 0.9% 100 ML ONE (00:14)
[2021-06-18 00:25] LABS: APPEARANCE,URINE CLEAR (CLEAR); BILIRUBIN,URINE NEGATIVE (NEGATIVE); GLUCOSE, URINE (UA) NEGATIVE (NEGATIVE); KETONES,URINE NEGATIVE (NEGATIVE); LEUKOCYTE ESTERASE ,URINE NEGATIVE (NEGATIVE); NITRATE,URINE NEGATIVE (NEGATIVE); OCCULT BLOOD,URINE MODERATE (NEGATIVE); PH,URINE 5.5 (5.0-8.0); PROTEIN,URINE SEE CONFIRM (NEGATIVE); UROBILINOGEN,URINE 0.2 mg/dL (<=1.0)
[2021-06-18 00:34] LABS: SULFOSALICYLIC ACID,URINE 2+ (Negative)
[2021-06-18 00:36] LABS: BACTERIA,URINE Rare /HPF (None Seen); WBC,URINE 0-2 /HPF (0-5)
[2021-06-18 00:37] LABS: SQUAMOUS EPITHELIAL CELL,UR Rare /LPF (None Seen)
[2021-06-18 00:43] LABS: AMPHET/METH SCREEN,URINE NEGATIVE (NEGATIVE); BARBITURATE SCREEN, URINE NEGATIVE (NEGATIVE); BENZODIAZEPINES SCREEN,URINE NEGATIVE (NEGATIVE); CANNABINOID SCREEN,URINE NEGATIVE (NEGATIVE); COCAINE SCREEN,URINE NEGATIVE (NEGATIVE); METHADONE SCREEN, URINE NEGATIVE (NEGATIVE); OPIATE SCREEN,URINE NEGATIVE (NEGATIVE)
[2021-06-18 00:44] LABS: PHENCYCLIDINE SCREEN,URINE NEGATIVE (NEGATIVE)
[2021-06-18] MEDS ORDERED: VANCOMYCIN HCL 1 GM/D5% WATER 200 ML IV ONE (02:00)
[2021-06-18] MEDS: SODIUM CHLORIDE 0.9% 1,000 ML IV SCH ×2 (02:00→15:31)
[2021-06-18] MEDS: PIPERACILLIN/TAZO 3.375 GM/D5W 50 ML IV SCH ×4 (05:49→23:51)
[2021-06-18] MEDS: OxyCODONE HCL/ACETAMINOPHEN 5-325 MG TABLET PO PRN ×4 (06:13→23:58)
[2021-06-18] MEDS: INSULIN LISPRO 100 UNITS/ML SQ PRN ×4 (06:14→21:49)
[2021-06-18 06:40] LABS: GLUCOMETER DEV NAME(LOC) 5S.1; GLUCOSE,POINT OF CARE 179 MG/DL (70-110)
[2021-06-18 06:40] LABS: GLUCOMETER DEV NAME(LOC) 5S.1; GLUCOSE,POINT OF CARE 189 MG/DL (70-110)
[2021-06-18 07:07] LABS: ANION GAP 8 mmol/L (8-16); CALCIUM, TOTAL 8.5 mg/dL (8.8-10.5); CARBON DIOXIDE 25 mmol/L (22-29); CHLORIDE 105 mmol/L (98-107); CREATININE 0.85 mg/dL (0.60-1.30); GLOMERULAR FILTR. RATE CALC > 60 mL/min (>60); GLUCOSE,RANDOM 185 mg/dL (70-110); POTASSIUM 3.4 mmol/L (3.5-5.1); SODIUM SERUM 138 mmol/L (136-145); UREA NITROGEN, BLOOD 16 mg/dL (7-18)
[2021-06-18] MEDS: DOCUSATE SODIUM 100 MG CAPSULE PO SCH ×2 (08:00→20:11)
[2021-06-18] MEDS: FAMOTIDINE 20 MG TABLET PO SCH (08:00)
[2021-06-18] MEDS: VANCOMYCIN HCL 1.25 GM in DEXTROSE 5%-WATER 250 ML IV SCH ×2 (08:00→20:11)
[2021-06-18] MEDS: CARVEDILOL 6.25 MG TABLET PO SCH ×2 (08:00→20:11)
[2021-06-18 13:08] LABS: GLUCOMETER DEV NAME(LOC) 5N.3; GLUCOSE,POINT OF CARE 235 MG/DL (70-110)
[2021-06-18] MEDS ORDERED: METF-960 PO (13:54)
[2021-06-18] MEDS ORDERED: CARV25 PO (13:54)
[2021-06-18] MEDS ORDERED: MULT-660 PO (13:54)
[2021-06-18] MEDS: CARISOPRODOL 350 MG TABLET PO PRN ×2 (17:06→21:44)
[2021-06-18 17:20] LABS: GLUCOMETER DEV NAME(LOC) 5N.1C; GLUCOSE,POINT OF CARE 201 MG/DL (70-110)
[2021-06-18] MEDS: MORPHINE SULFATE 2 MG/ML SYRINGE IVP PRN (22:14)
[2021-06-18 22:34] LABS: GLUCOMETER DEV NAME(LOC) 5S.1; GLUCOSE,POINT OF CARE 209 MG/DL (70-110)
[2021-06-19 03:55] VITALS: BP 124/71
[2021-06-19] MEDS: SODIUM CHLORIDE 0.9% 1,000 ML IV SCH ×3 (05:29→17:00)
[2021-06-19] MEDS: PIPERACILLIN/TAZO 3.375 GM/D5W 50 ML IV SCH ×3 (05:29→19:02)
[2021-06-19] MEDS: MORPHINE SULFATE 2 MG/ML SYRINGE IVP PRN ×4 (05:34→21:21)
[2021-06-19] MEDS: INSULIN LISPRO 100 UNITS/ML SQ PRN ×4 (05:56→21:30)
[2021-06-19 06:29] LABS: ANION GAP 14 mmol/L (8-16); CALCIUM, TOTAL 9.2 mg/dL (8.8-10.5); CARBON DIOXIDE 27 mmol/L (22-29); CHLORIDE 102 mmol/L (98-107); CREATININE 0.77 mg/dL (0.60-1.30); GLOMERULAR FILTR. RATE CALC > 60 mL/min (>60); GLUCOSE,RANDOM 206 mg/dL (70-110); POTASSIUM 4.3 mmol/L (3.5-5.1); SODIUM SERUM 143 mmol/L (136-145); UREA NITROGEN, BLOOD 12 mg/dL (7-18); VANCOMYCIN,RANDOM 11.6 mcg/mL (25.0-50.0)
[2021-06-19 07:46] VITALS: BP 140/80
[2021-06-19 08:44] LABS: GLUCOMETER DEV NAME(LOC) 5S.2B; GLUCOSE,POINT OF CARE 204 MG/DL (70-110)
[2021-06-19] MEDS: FAMOTIDINE 20 MG TABLET PO SCH (08:54)
[2021-06-19] MEDS: OxyCODONE HCL/ACETAMINOPHEN 5-325 MG TABLET PO PRN (08:54)
[2021-06-19] MEDS: CARVEDILOL 6.25 MG TABLET PO SCH ×2 (08:55→20:21)
[2021-06-19] MEDS: DOCUSATE SODIUM 100 MG CAPSULE PO SCH ×2 (09:00→20:12)
[2021-06-19] MEDS: VANCOMYCIN HCL 1.25 GM in DEXTROSE 5%-WATER 250 ML IV SCH (09:05)
[2021-06-19 11:09] VITALS: BP 146/81
[2021-06-19 13:54] LABS: GLUCOMETER DEV NAME(LOC) 5S.2B; GLUCOSE,POINT OF CARE 215 MG/DL (70-110)
[2021-06-19] MEDS: CARISOPRODOL 350 MG TABLET PO PRN ×2 (14:08→21:20)
[2021-06-19 15:06] VITALS: BP 137/64
[2021-06-19] MEDS: VANCOMYCIN HCL 1 GM/D5% WATER 200 ML IV SCH (16:32)
[2021-06-19 19:52] VITALS: BP 148/86
[2021-06-19 20:41] LABS: GLUCOMETER DEV NAME(LOC) 5N.3; GLUCOSE,POINT OF CARE 240 MG/DL (70-110)
[2021-06-19 23:55] VITALS: BP 140/79
[2021-06-20] MEDS: PIPERACILLIN/TAZO 3.375 GM/D5W 50 ML IV SCH ×3 (00:02→11:17)
[2021-06-20] MEDS: OxyCODONE HCL/ACETAMINOPHEN 5-325 MG TABLET PO PRN ×2 (00:02→04:28)
[2021-06-20 00:06] LABS: GLUCOMETER DEV NAME(LOC) 5S.2B; GLUCOSE,POINT OF CARE 243 MG/DL (70-110)
[2021-06-20] MEDS: VANCOMYCIN HCL 1 GM/D5% WATER 200 ML IV SCH ×2 (00:42→08:42)
[2021-06-20] MEDS: MORPHINE SULFATE 2 MG/ML SYRINGE IVP PRN ×3 (01:13→11:18)
[2021-06-20 05:09] VITALS: BP 133/78
[2021-06-20 06:40] LABS: BASOPHILS % (AUTO) 0.6 % (0.0-2.0); EOSINOPHILS % (AUTO) 4.1 % (1.0-6.0); HEMATOCRIT 35.8 % (36-46); HEMOGLOBIN 11.7 g/dL (12.0-16.0); LYMPHOCYTES # (AUTO) 1.7 K/uL (1.0-4.8); MEAN CORPUSCULAR HGB CONC 32.8 G/dL (31.0-37.0); MEAN CORPUSCULAR VOLUME 89 fL (80-100); MONOCYTES # (AUTO) 0.5 K/uL (0.1-1.0); MONOCYTES % (AUTO) 11.1 % (2.0-9.0); NEUTROPHILS # (AUTO) 2.5 K/uL (1.8-7.7); NEUTROPHILS % (AUTO) 50.2 % (40.0-70.0); PLATELET COUNT (AUTO) 300 K/uL (150-450); RED BLOOD CELL COUNT(AUTO) 4.05 MIL/uL (4.00-5.20); RED CELL DISTRIBUTION WIDTH 13.6 % (11.5-14.5)
[2021-06-20] MEDS: INSULIN LISPRO 100 UNITS/ML SQ PRN ×2 (06:42→11:59)
[2021-06-20 06:55] LABS: ANION GAP 12 mmol/L (8-16); CALCIUM, TOTAL 10.5 mg/dL (8.8-10.5); CARBON DIOXIDE 25 mmol/L (22-29); CHLORIDE 100 mmol/L (98-107); CREATININE 0.73 mg/dL (0.60-1.30); GLOMERULAR FILTR. RATE CALC > 60 mL/min (>60); GLUCOSE,RANDOM 228 mg/dL (70-110); POTASSIUM 3.9 mmol/L (3.5-5.1); SODIUM SERUM 137 mmol/L (136-145); UREA NITROGEN, BLOOD 14 mg/dL (7-18)
[2021-06-20 08:02] VITALS: BP 124/67
[2021-06-20] MEDS: FAMOTIDINE 20 MG TABLET PO SCH (08:42)
[2021-06-20] MEDS: CARVEDILOL 6.25 MG TABLET PO SCH (08:42)
[2021-06-20] MEDS: DOCUSATE SODIUM 100 MG CAPSULE PO SCH (08:43)
[2021-06-20] MEDS ORDERED: LEVO250T75 PO (10:28)
[2021-06-20 11:17] VITALS: BP 135/78
[2021-06-20 11:51] LABS: GLUCOMETER DEV NAME(LOC) 5N.1C; GLUCOSE,POINT OF CARE 216 MG/DL (70-110)
[2021-06-20 20:54] LABS: GLUCOMETER DEV NAME(LOC) 5S.1; GLUCOSE,POINT OF CARE 250 MG/DL (70-110)
== END 2021-06-20 15:00 | disposition home or self-care (01) | DRG 871 ==
LOC: EMS 20:57 → 5S 06-18 00:01
PROVIDERS: ADMIT Internal Medicine; ATTEND Internal Medicine
PROC: 05HY33Z Insertion of Infusion Device into Upper Vein, Percutaneous Approach (ICD-10-PCS; principal; 2021-06-19)
DX: A41.9 Sepsis, unspecified organism (principal); J18.9 Pneumonia, unspecified organism; Z68.41 Body mass index [BMI] 40.0-44.9, adult; F11.20 Opioid dependence, uncomplicated; E11.65 Type 2 diabetes mellitus with hyperglycemia; I49.5 Sick sinus syndrome; E66.01 Morbid (severe) obesity due to excess calories; E11.40 Type 2 diabetes mellitus with diabetic neuropathy, unspecified; E78.5 Hyperlipidemia, unspecified; G89.29 Other chronic pain; K52.9 Noninfective gastroenteritis and colitis, unspecified; K21.9 Gastro-esophageal reflux disease without esophagitis; I25.10 Atherosclerotic heart disease of native coronary artery without angina pectoris; I11.9 Hypertensive heart disease without heart failure; F41.9 Anxiety disorder, unspecified; G43.909 Migraine, unspecified, not intractable, without status migrainosus; Z20.822 Contact with and (suspected) exposure to COVID-19; Z79.4 Long term (current) use of insulin; Z90.49 Acquired absence of other specified parts of digestive tract; Z98.84 Bariatric surgery status; Z88.8 Allergy status to other drugs, medicaments and biological substances; Z79.899 Other long term (current) drug therapy; Z90.710 Acquired absence of both cervix and uterus; I25.2 Old myocardial infarction
CPT/HCPCS: 36245; 36569; 71045; 74177; 76937; 80048; 80053; 80202; 81001; 81002; 82550; 82962; 83605; 83690; 83880; 84145; 84484; 84702; 85025; 85379; 85610; 87040; 87804; 93005; 93306; 99285; J0131; J2270; J2405; J2543; J3370; J3490; J7030; J7050; J7060; Q9967; 36415-L1; 36415-TC; U0003

== ENCOUNTER 2021-11-02 23:45 | Emergency (ER) | payer MEDICARE, OTHER ==
[~2021-11-02] VITALS: Ht 154.9 cm; Wt 96.4 kg
[~2021-11-02 23:45] MED LIST changes: -CARI350T26 PO; -CARV12 PO; +LEVO250T75 PO; +METF-1211 PO; -METF1000 PO; -MULT-60 PO; +MULT-660 PO; -OXYC-43 PO; -SITA100 PO
[2021-11-03] MEDS ORDERED: CARISOPRODOL 350 MG TABLET PO ONE (01:30)
[2021-11-03] MEDS ORDERED: MetFORMIN HCL 500 MG TABLET PO ONE (01:30)
[2021-11-03 02:05] LABS: BASOPHILS % (AUTO) 2.2 % (0.0-2.0); EOSINOPHILS % (AUTO) 2.4 % (1.0-6.0); HEMATOCRIT 34.9 % (36-46); HEMOGLOBIN 12.4 g/dL (12.0-16.0); LYMPHOCYTES # (AUTO) 3.6 K/uL (1.0-4.8); LYMPHOCYTES % (AUTO) 48.6 % (22.0-44.0); MEAN CORPUSCULAR HEMOGLOBIN 30.9 pg (26.0-34.0); MEAN CORPUSCULAR HGB CONC 35.4 G/dL (31.0-37.0); MEAN CORPUSCULAR VOLUME 87 fL (80-100); MONOCYTES # (AUTO) 0.4 K/uL (0.1-1.0); MONOCYTES % (AUTO) 5.8 % (2.0-9.0); PLATELET COUNT (AUTO) 189 K/uL (150-450)
[2021-11-03] MEDS ORDERED: HYDROCODONE/ACETAMINOPHEN 5-325 MG TABLET PO ONE (02:15)
[2021-11-03] MEDS ORDERED: SODIUM CHLORIDE 0.9% 1,000 ML IV ONE (02:15)
[2021-11-03] MEDS ORDERED: ONDANSETRON HCL 4 MG/2 ML VIAL IVP ONE (02:15)
[2021-11-03 02:22] LABS: ALBUMIN 2.8 g/dL (3.4-5.0); BILIRUBIN,TOTAL 0.4 mg/dL (0.1-1.0); CALCIUM, TOTAL 8.3 mg/dL (8.8-10.5); CREATININE 1.2 mg/dL (0.60-1.30); POTASSIUM 3.8 mmol/L (3.5-5.1)
[2021-11-03 02:26] LABS: GLUCOSE,POINT OF CARE 440 MG/DL (70-110)
[2021-11-03 02:51] LABS: TOTAL PROTEIN, SERUM 6.8 g/dL (6.4-8.2)
[2021-11-03 04:21] LABS: GLUCOSE,POINT OF CARE 401 MG/DL (70-110)
[2021-11-03 04:42] VITALS: BP 170/75
== END 2021-11-03 04:43 | disposition home or self-care (01) ==
LOC: EMS 23:54
DX: E11.65 Type 2 diabetes mellitus with hyperglycemia (principal); R25.2 Cramp and spasm; K21.9 Gastro-esophageal reflux disease without esophagitis; I10 Essential (primary) hypertension; Z88.8 Allergy status to other drugs, medicaments and biological substances; Z79.82 Long term (current) use of aspirin; Z79.899 Other long term (current) drug therapy
CPT/HCPCS: 36415; 80053; 82962; 85025; 96361; 96374; 99285; J2405; J7030

== ENCOUNTER 2021-11-20 16:48 | Emergency (ER) | payer MEDICARE, OTHER ==
[~2021-11-20] VITALS: Ht 162.6 cm; Wt 97.7 kg
[2021-11-20] MEDS ORDERED: SODIUM CHLORIDE 0.9% 1,000 ML IV ONE (17:30)
[2021-11-20] MEDS ORDERED: ONDANSETRON HCL 4 MG/2 ML VIAL IVP ONE (17:30)
[2021-11-20 17:49] VITALS: BP 119/73
[2021-11-20 18:01] LABS: GLUCOSE,POINT OF CARE 154 MG/DL (70-110)
[2021-11-20 18:02] LABS: EOSINOPHILS % (AUTO) 2.9 % (1.0-6.0); HEMATOCRIT 36.2 % (36-46); HEMOGLOBIN 12.2 g/dL (12.0-16.0); LYMPHOCYTES # (AUTO) 2.7 K/uL (1.0-4.8); LYMPHOCYTES % (AUTO) 42.8 % (22.0-44.0); MEAN CORPUSCULAR HEMOGLOBIN 29.8 pg (26.0-34.0); MEAN CORPUSCULAR HGB CONC 33.8 G/dL (31.0-37.0); MEAN CORPUSCULAR VOLUME 88 fL (80-100); MONOCYTES # (AUTO) 0.6 K/uL (0.1-1.0); MONOCYTES % (AUTO) 8.8 % (2.0-9.0); NEUTROPHILS # (AUTO) 2.8 K/uL (1.8-7.7); NEUTROPHILS % (AUTO) 44.5 % (40.0-70.0); PLATELET COUNT (AUTO) 307 K/uL (150-450); RED BLOOD CELL COUNT(AUTO) 4.09 MIL/uL (4.00-5.20); RED CELL DISTRIBUTION WIDTH 13.1 % (11.5-14.5)
[2021-11-20 18:12] LABS: CALCIUM, TOTAL 9.7 mg/dL (8.8-10.5); CREATININE 1.23 mg/dL (0.60-1.30); POTASSIUM 4.7 mmol/L (3.5-5.1)
[2021-11-20 18:18] LABS: ALBUMIN 3.3 g/dL (3.4-5.0); BILIRUBIN,TOTAL 0.2 mg/dL (0.1-1.0); TOTAL PROTEIN, SERUM 7.7 g/dL (6.4-8.2)
[2021-11-20] MEDS ORDERED: MORPHINE SULFATE 4 MG/ML SYRINGE IVP ONE (18:45)
[2021-11-20] MEDS ORDERED: LORazepam 2 MG/ML VIAL IVP ONE (20:15)
[2021-11-20] MEDS ORDERED: METHOCARBAMOL 100 MG/ML 10 ML VIAL IVP ONE (20:15)
[2021-11-20] MEDS ORDERED: TRAM50TA4 PO (22:15)
[2021-11-20] MEDS ORDERED: ONDA-104 PO (22:15)
== END 2021-11-20 23:49 | disposition home or self-care (01) ==
LOC: EMS 16:50
DX: G43.909 Migraine, unspecified, not intractable, without status migrainosus (principal); K52.9 Noninfective gastroenteritis and colitis, unspecified; I25.10 Atherosclerotic heart disease of native coronary artery without angina pectoris; E11.9 Type 2 diabetes mellitus without complications; F41.9 Anxiety disorder, unspecified; K21.9 Gastro-esophageal reflux disease without esophagitis; I11.9 Hypertensive heart disease without heart failure; G89.29 Other chronic pain; I25.2 Old myocardial infarction; Z95.0 Presence of cardiac pacemaker; Z90.710 Acquired absence of both cervix and uterus; Z90.89 Acquired absence of other organs; Z79.84 Long term (current) use of oral hypoglycemic drugs; Z88.5 Allergy status to narcotic agent; Z88.8 Allergy status to other drugs, medicaments and biological substances
CPT/HCPCS: 36415; 80053; 82962; 84484; 85025; 96361; 96374; 96375; 99284; J2060; J2270; J2405; J2800; J7030

== ENCOUNTER 2021-12-09 23:51 | Emergency (ER) | payer MEDICARE, OTHER ==
[~2021-12-09] VITALS: Ht 154.9 cm; Wt 113.6 kg
[~2021-12-09 23:51] MED LIST changes: +TRAM50TA4 PO
[2021-12-10] MEDS ORDERED: OxyCODONE HCL/ACETAMINOPHEN 10-325 MG TABLET PO ONE (00:15)
[2021-12-10 00:26] LABS: GLUCOSE,POINT OF CARE 296 MG/DL (70-110)
[2021-12-10 02:00] VITALS: BP 152/81
== END 2021-12-10 02:26 | disposition home or self-care (01) ==
LOC: EMS 23:52
DX: R07.89 Other chest pain (principal); I10 Essential (primary) hypertension; E11.9 Type 2 diabetes mellitus without complications; I25.10 Atherosclerotic heart disease of native coronary artery without angina pectoris; K21.9 Gastro-esophageal reflux disease without esophagitis; F41.9 Anxiety disorder, unspecified; Z88.8 Allergy status to other drugs, medicaments and biological substances; Z79.82 Long term (current) use of aspirin; Z79.84 Long term (current) use of oral hypoglycemic drugs; Z79.899 Other long term (current) drug therapy
CPT/HCPCS: 71045; 82962; 99283

== ENCOUNTER 2022-01-17 01:22 | Emergency (ER) | payer MEDICARE, OTHER ==
[~2022-01-17] VITALS: Ht 154.9 cm; Wt 96.5 kg
[2022-01-17 01:51] LABS: GLUCOSE,POINT OF CARE 235 MG/DL (70-110)
[2022-01-17 02:04] LABS: HEMOGLOBIN 12.9 g/dL (12.0-16.0); RED BLOOD CELL COUNT(AUTO) 4.33 MIL/uL (4.00-5.20)
[2022-01-17 02:05] LABS: BASOPHILS % (AUTO) 0.6 % (0.0-2.0); HEMATOCRIT 37.2 % (36-46); LYMPHOCYTES # (AUTO) 2.3 K/uL (1.0-4.8); LYMPHOCYTES % (AUTO) 32.9 % (22.0-44.0); MEAN CORPUSCULAR HEMOGLOBIN 29.8 pg (26.0-34.0); MEAN CORPUSCULAR HGB CONC 34.6 G/dL (31.0-37.0); MEAN CORPUSCULAR VOLUME 86 fL (80-100); MONOCYTES # (AUTO) 0.5 K/uL (0.1-1.0); MONOCYTES % (AUTO) 7.6 % (2.0-9.0); NEUTROPHILS # (AUTO) 3.9 K/uL (1.8-7.7); NEUTROPHILS % (AUTO) 55.9 % (40.0-70.0); PLATELET COUNT (AUTO) 340 K/uL (150-450); RED CELL DISTRIBUTION WIDTH 13.2 % (11.5-14.5)
[2022-01-17 02:10] VITALS: BP 146/92
[2022-01-17 02:12] LABS: ANION GAP 10 mmol/L (8-16); CALCIUM, TOTAL 9.9 mg/dL (8.8-10.5); CARBON DIOXIDE 26 mmol/L (22-29); CHLORIDE 98 mmol/L (98-107); CREATININE 0.77 mg/dL (0.60-1.30); GLOMERULAR FILTR. RATE CALC > 60 mL/min (>60); GLUCOSE,RANDOM 240 mg/dL (70-110); POTASSIUM 3.5 mmol/L (3.5-5.1); SODIUM SERUM 134 mmol/L (136-145); UREA NITROGEN, BLOOD 13 mg/dL (7-18)
[2022-01-17 02:18] LABS: ALANINE AMINOTRANSFERASE 27 U/L (12-78); ALBUMIN 3.5 g/dL (3.4-5.0); ALKALINE PHOSPHATASE 77 U/L (46-116); ASPARTATE AMINOTRANSFERASE 17 U/L (15-37); BILIRUBIN,TOTAL 0.2 mg/dL (0.1-1.0); TOTAL PROTEIN, SERUM 7.9 g/dL (6.4-8.2)
[2022-01-17] MEDS ORDERED: LIDOCAINE 2% VISCOUS 15 ML SOLUTION UDCUP TP ONE (03:00)
[2022-01-17] MEDS ORDERED: PERTUSS(ACELL),DIPH,TET VAC/PF 0.5 ML SYRINGE IM. ONE (03:00)
[2022-01-17] MEDS ORDERED: ACETAMINOPHEN 325 MG TABLET PO ONE (03:00)
== END 2022-01-17 04:24 | disposition home or self-care (01) ==
LOC: EMS 01:24
DX: S90.412A Abrasion, left great toe, initial encounter (principal); F41.9 Anxiety disorder, unspecified; I25.10 Atherosclerotic heart disease of native coronary artery without angina pectoris; E11.9 Type 2 diabetes mellitus without complications; K21.9 Gastro-esophageal reflux disease without esophagitis; I11.9 Hypertensive heart disease without heart failure; G43.909 Migraine, unspecified, not intractable, without status migrainosus; I25.2 Old myocardial infarction; G89.29 Other chronic pain; Z90.710 Acquired absence of both cervix and uterus; Z95.0 Presence of cardiac pacemaker; Z90.89 Acquired absence of other organs; Z88.5 Allergy status to narcotic agent; Z88.8 Allergy status to other drugs, medicaments and biological substances; Z79.84 Long term (current) use of oral hypoglycemic drugs; W50.0XXA Accidental hit or strike by another person, initial encounter; Y93.89 Activity, other specified; Y92.89 Other specified places as the place of occurrence of the external cause; Y99.8 Other external cause status
CPT/HCPCS: 80053; 82962; 85025; 90471; 90715; 99284

== ENCOUNTER 2022-01-26 13:51 | Inpatient (IN) | payer MEDICARE, OTHER ==
[~2022-01-26] VITALS: Ht 154.9 cm; Wt 97.0 kg
[2022-01-26] MEDS ORDERED: ACETAMINOPHEN 500 MG TABLET PO ONE (14:00)
[2022-01-26] MEDS ORDERED: 0.9% SODIUM CHLORIDE 10 ML SYRINGE IVP PRN ×2 (14:00→15:45)
[2022-01-26] MEDS ORDERED: SODIUM CHLORIDE 0.9% 1,000 ML IV ONE (14:15)
[2022-01-26 14:32] LABS: COVID AG,FIA SOURCE NASOPHARYNGEAL
[2022-01-26 14:34] LABS: BASOPHILS % (AUTO) 0.9 % (0.0-2.0); EOSINOPHILS % (AUTO) 0.8 % (1.0-6.0); HEMATOCRIT 36.4 % (36-46); HEMOGLOBIN 12.8 g/dL (12.0-16.0); LYMPHOCYTES # (AUTO) 0.8 K/uL (1.0-4.8); LYMPHOCYTES % (AUTO) 12.3 % (22.0-44.0); MEAN CORPUSCULAR HGB CONC 35.2 G/dL (31.0-37.0); MEAN CORPUSCULAR VOLUME 85 fL (80-100); MONOCYTES # (AUTO) 0.7 K/uL (0.1-1.0); MONOCYTES % (AUTO) 12.1 % (2.0-9.0); NEUTROPHILS # (AUTO) 4.6 K/uL (1.8-7.7); NEUTROPHILS % (AUTO) 73.9 % (40.0-70.0); PLATELET COUNT (AUTO) 304 K/uL (150-450); RED BLOOD CELL COUNT(AUTO) 4.27 MIL/uL (4.00-5.20); RED CELL DISTRIBUTION WIDTH 12.8 % (11.5-14.5)
[2022-01-26 14:55] LABS: D-DIMER 0.82 mg/L FEU (0.00-0.50); INR 1.1 (0.9-1.1); PROTHROMBIN TIME 11.9 SEC (9.4-11.6)
[2022-01-26 14:57] LABS: INFLUENZA TYPE A NEGATIVE FOR TYPE A (NEGATIVE)
[2022-01-26 14:57] LABS: CALCIUM, TOTAL 9.1 mg/dL (8.8-10.5); CARBON DIOXIDE 23 mmol/L (22-29); CHLORIDE 98 mmol/L (98-107); CREATININE 0.98 mg/dL (0.60-1.30); GLOMERULAR FILTR. RATE CALC 58 mL/min (>60); GLUCOSE,RANDOM 252 mg/dL (70-110); UREA NITROGEN, BLOOD 12 mg/dL (7-18)
[2022-01-26 15:02] LABS: B-TYPE NATRIURETIC PEPTIDE 9 pg/mL (0-100)
[2022-01-26 15:13] LABS: INFLUENZA TYPE B POSITIVE FOR TYPE B (NEGATIVE)
[2022-01-26 15:13] LABS: LACTIC ACID 1.1 mmol/L (0.4-2.0)
[2022-01-26 15:16] LABS: ALANINE AMINOTRANSFERASE 32 U/L (12-78); ALKALINE PHOSPHATASE 69 U/L (46-116); ANION GAP 12 mmol/L (8-16); ASPARTATE AMINOTRANSFERASE 28 U/L (15-37); BILIRUBIN,TOTAL 0.2 mg/dL (0.1-1.0); C-REACTIVE PROTEIN QUANT 4.71 mg/dL (0.00-0.30); CREATINE KINASE, TOTAL ONLY 33 U/L (26-192); FERRITIN 126 ng/mL (8-252); HCG,QUANTITATIVE 1 mIU/mL (0-6); PHOSPHORUS 2.8 mg/dL (2.5-4.9); POTASSIUM 3.2 mmol/L (3.5-5.1); SODIUM SERUM 133 mmol/L (136-145); TOTAL PROTEIN, SERUM 7.4 g/dL (6.4-8.2)
[2022-01-26] MEDS ORDERED: MAGNESIUM SULFATE 2 GM/WATER 50 ML IV ONE (15:30)
[2022-01-26] MEDS ORDERED: OSELTAMIVIR PHOSPHATE 75 MG CAPSULE PO ONE (15:30)
[2022-01-26] MEDS ORDERED: POTASSIUM CHLORIDE 20 MEQ ER TABLET PO ONE (15:30)
[2022-01-26 15:41] LABS: HEMATOCRIT 36.4 % (36-46); HEMOGLOBIN 12.8 g/dL (12.0-16.0)
[2022-01-26] MEDS ORDERED: ONDANSETRON HCL 4 MG/2 ML VIAL IVP PRN ×2 (15:45→16:15)
[2022-01-26] MEDS ORDERED: ACETAMINOPHEN 325 MG TABLET PO PRN ×2 (15:45→16:15)
[2022-01-26] MEDS ORDERED: MORPHINE SULFATE 2 MG/ML SYRINGE IVP PRN (16:15)
[2022-01-26] MEDS ORDERED: BISACODYL 10 MG RECTAL RECTAL SUPPOSITORY PR PRN (16:15)
[2022-01-26] MEDS ORDERED: MAGNESIUM HYDROXIDE SUSPENSION 30 ML UDCUP PO PRN (16:15)
[2022-01-26] MEDS: DOCUSATE SODIUM 100 MG CAPSULE PO SCH (21:00)
[2022-01-26 21:16] VITALS: BP 169/77
[2022-01-26] MEDS ORDERED: CARI-493 PO (22:17)
[2022-01-26] MEDS ORDERED: OXYC-490 PO (22:17)
[2022-01-26 22:22] VITALS: BP 163/78
[2022-01-26] MEDS: HYDROCODONE/ACETAMINOPHEN 5-325 MG TABLET PO PRN (22:55)
[2022-01-26] MEDS: OSELTAMIVIR PHOSPHATE 75 MG CAPSULE PO SCH (22:55)
[2022-01-26 23:47] VITALS: BP 154/79
[2022-01-27] MEDS: HEPARIN SODIUM,PORCINE 5,000 UNITS/ML VIAL SQ SCH ×3 (00:42→16:36)
[2022-01-27] MEDS: CARISOPRODOL 350 MG TABLET PO SCH ×3 (00:42→20:18)
[2022-01-27 03:48] VITALS: BP 126/66
[2022-01-27 06:44] LABS: BASOPHILS % (AUTO) 0.9 % (0.0-2.0); EOSINOPHILS % (AUTO) 1.7 % (1.0-6.0); HEMATOCRIT 36.8 % (36-46); HEMOGLOBIN 12.4 g/dL (12.0-16.0); LYMPHOCYTES # (AUTO) 1.7 K/uL (1.0-4.8); MEAN CORPUSCULAR HEMOGLOBIN 29.6 pg (26.0-34.0); MEAN CORPUSCULAR HGB CONC 33.8 G/dL (31.0-37.0); MEAN CORPUSCULAR VOLUME 87 fL (80-100); MONOCYTES # (AUTO) 0.8 K/uL (0.1-1.0); MONOCYTES % (AUTO) 16.3 % (2.0-9.0); NEUTROPHILS # (AUTO) 2.2 K/uL (1.8-7.7); NEUTROPHILS % (AUTO) 46.1 % (40.0-70.0); PLATELET COUNT (AUTO) 262 K/uL (150-450); RED BLOOD CELL COUNT(AUTO) 4.21 MIL/uL (4.00-5.20); RED CELL DISTRIBUTION WIDTH 13.2 % (11.5-14.5)
[2022-01-27 07:15] LABS: GLUCOMETER DEV NAME(LOC) 5S.1B; GLUCOSE,POINT OF CARE 239 MG/DL (70-110)
[2022-01-27 07:25] LABS: ALANINE AMINOTRANSFERASE 28 U/L (12-78); ALBUMIN 2.7 g/dL (3.4-5.0); ALKALINE PHOSPHATASE 65 U/L (46-116); ANION GAP 7 mmol/L (8-16); ASPARTATE AMINOTRANSFERASE 29 U/L (15-37); BILIRUBIN,TOTAL 0.2 mg/dL (0.1-1.0); CALCIUM, TOTAL 8.7 mg/dL (8.8-10.5); CARBON DIOXIDE 25 mmol/L (22-29); CHLORIDE 102 mmol/L (98-107); GLOMERULAR FILTR. RATE CALC > 60 mL/min (>60); GLUCOSE,RANDOM 249 mg/dL (70-110); POTASSIUM 3.7 mmol/L (3.5-5.1); SODIUM SERUM 134 mmol/L (136-145); UREA NITROGEN, BLOOD 13 mg/dL (7-18)
[2022-01-27 09:04] VITALS: BP 162/91
[2022-01-27] MEDS: DOCUSATE SODIUM 100 MG CAPSULE PO SCH ×2 (09:22→20:22)
[2022-01-27] MEDS: OSELTAMIVIR PHOSPHATE 75 MG CAPSULE PO SCH ×2 (09:22→20:22)
[2022-01-27] MEDS: PANTOPRAZOLE SODIUM 40 MG DR TABLET PO SCH (09:23)
[2022-01-27] MEDS ORDERED: DEXTROSE 50%-WATER 25 GM/50 ML SYRINGE IVP PRN (11:45)
[2022-01-27] MEDS: HYDROCODONE/ACETAMINOPHEN 5-325 MG TABLET PO PRN ×2 (11:50→20:10)
[2022-01-27] MEDS ORDERED: CARV25 PO (11:55)
[2022-01-27] MEDS ORDERED: LOPE2CAP PO (11:55)
[2022-01-27] MEDS ORDERED: GABA600T10 PO (11:55)
[2022-01-27] MEDS ORDERED: INS7030 SQ (11:55)
[2022-01-27] MEDS: INSULIN LISPRO 100 UNITS/ML SQ PRN ×3 (11:58→22:56)
[2022-01-27 13:30] LABS: APPEARANCE,URINE CLEAR (CLEAR); BILIRUBIN,URINE NEGATIVE (NEGATIVE); GLUCOSE, URINE (UA) 300-500 mg/dL (NEGATIVE); KETONES,URINE NEGATIVE (NEGATIVE); LEUKOCYTE ESTERASE ,URINE TRACE (NEGATIVE); NITRATE,URINE NEGATIVE (NEGATIVE); OCCULT BLOOD,URINE LARGE (NEGATIVE); PROTEIN,URINE 300-600,SEE CONFIRM mg/dL (NEGATIVE); SPECIFIC GRAVITIY, URINE 1.022 (1.003-1.030); UROBILINOGEN,URINE <=1.0 mg/dL (<=1.0)
[2022-01-27 13:44] VITALS: BP 170/94
[2022-01-27 13:49] LABS: BACTERIA,URINE Few /HPF (None Seen); SQUAMOUS EPITHELIAL CELL,UR Few /LPF (None Seen); SULFOSALICYLIC ACID,URINE 4+ (Negative)
[2022-01-27 16:18] VITALS: BP 163/93
[2022-01-27 20:02] LABS: GLUCOMETER DEV NAME(LOC) 5S.1B; GLUCOSE,POINT OF CARE 225 MG/DL (70-110)
[2022-01-27] MEDS: CARVEDILOL 25 MG TABLET PO SCH (20:17)
[2022-01-27 20:42] VITALS: BP 173/91
[2022-01-27 21:01] LABS: GLUCOMETER DEV NAME(LOC) 5S.2B; GLUCOSE,POINT OF CARE 219 MG/DL (70-110)
[2022-01-27] MEDS: ZOLPIDEM TARTRATE 5 MG TABLET PO PRN (22:50)
[2022-01-27 23:57] LABS: GLUCOMETER DEV NAME(LOC) 5S.2B; GLUCOSE,POINT OF CARE 241 MG/DL (70-110)
[2022-01-28] VITALS (7 sets, daily range): BP systolic 116–140; BP diastolic 68–90
[2022-01-28 06:31] LABS: BASOPHILS % (AUTO) 0.9 % (0.0-2.0); EOSINOPHILS % (AUTO) 3.9 % (1.0-6.0); HEMATOCRIT 36.6 % (36-46); HEMOGLOBIN 12.7 g/dL (12.0-16.0); LYMPHOCYTES % (AUTO) 47.2 % (22.0-44.0); MEAN CORPUSCULAR HEMOGLOBIN 29.9 pg (26.0-34.0); MEAN CORPUSCULAR HGB CONC 34.6 G/dL (31.0-37.0); MEAN CORPUSCULAR VOLUME 86 fL (80-100); MONOCYTES # (AUTO) 0.5 K/uL (0.1-1.0); MONOCYTES % (AUTO) 11.8 % (2.0-9.0); NEUTROPHILS # (AUTO) 1.5 K/uL (1.8-7.7); NEUTROPHILS % (AUTO) 36.2 % (40.0-70.0); PLATELET COUNT (AUTO) 274 K/uL (150-450); RED BLOOD CELL COUNT(AUTO) 4.24 MIL/uL (4.00-5.20); RED CELL DISTRIBUTION WIDTH 13.4 % (11.5-14.5)
[2022-01-28 06:45] LABS: ANION GAP 10 mmol/L (8-16); CALCIUM, TOTAL 9.3 mg/dL (8.8-10.5); CARBON DIOXIDE 23 mmol/L (22-29); CHLORIDE 100 mmol/L (98-107); CREATININE 0.86 mg/dL (0.60-1.30); GLOMERULAR FILTR. RATE CALC > 60 mL/min (>60); GLUCOSE,RANDOM 290 mg/dL (70-110); POTASSIUM 3.8 mmol/L (3.5-5.1); SODIUM SERUM 133 mmol/L (136-145); UREA NITROGEN, BLOOD 16 mg/dL (7-18)
[2022-01-28] MEDS: INSULIN LISPRO 100 UNITS/ML SQ PRN ×4 (06:52→20:36)
[2022-01-28 06:56] LABS: GLUCOMETER DEV NAME(LOC) 5S.2B; GLUCOSE,POINT OF CARE 266 MG/DL (70-110)
[2022-01-28] MEDS: PANTOPRAZOLE SODIUM 40 MG DR TABLET PO SCH (08:33)
[2022-01-28] MEDS: CARVEDILOL 25 MG TABLET PO SCH ×2 (08:33→20:30)
[2022-01-28] MEDS: AmLODIPine BESYLATE 10 MG TABLET PO SCH (08:33)
[2022-01-28] MEDS: FENOFIBRATE 160 MG TABLET PO SCH (08:33)
[2022-01-28] MEDS: CARISOPRODOL 350 MG TABLET PO SCH ×2 (08:33→20:30)
[2022-01-28] MEDS: HYDROCODONE/ACETAMINOPHEN 5-325 MG TABLET PO PRN ×3 (08:33→22:05)
[2022-01-28] MEDS: HEPARIN SODIUM,PORCINE 5,000 UNITS/ML VIAL SQ SCH ×4 (08:34→23:38)
[2022-01-28] MEDS: OSELTAMIVIR PHOSPHATE 75 MG CAPSULE PO SCH ×2 (08:34→20:31)
[2022-01-28] MEDS: DOCUSATE SODIUM 100 MG CAPSULE PO SCH ×2 (08:37→20:31)
[2022-01-28] MEDS ORDERED: MAGNESIUM SULFATE 4 GM/WATER 100 ML IV PRN (13:30)
[2022-01-28] MEDS ORDERED: MAGNESIUM OXIDE 400 MG TABLET PO PRN (13:30)
[2022-01-28 13:43] LABS: ALBUMIN 2.8 g/dL (3.4-5.0)
[2022-01-28 17:41] LABS: GLUCOMETER DEV NAME(LOC) 5S.1B; GLUCOSE,POINT OF CARE 280 MG/DL (70-110)
[2022-01-28] MEDS ORDERED: SODIUM CHLORIDE 0.9% 250 ML IV ONE (18:25)
[2022-01-28] MEDS: MAGNESIUM SULFATE 2 GM/WATER 50 ML IV PRN (18:26)
[2022-01-28 20:12] LABS: GLUCOMETER DEV NAME(LOC) 5S.1B; GLUCOSE,POINT OF CARE 239 MG/DL (70-110)
[2022-01-28] MEDS: ZOLPIDEM TARTRATE 5 MG TABLET PO PRN (20:31)
[2022-01-28 20:36] LABS: GLUCOMETER DEV NAME(LOC) 5S.1B; GLUCOSE,POINT OF CARE 248 MG/DL (70-110)
[2022-01-29] MEDS ORDERED: ZOLPIDEM TARTRATE 5 MG TABLET PO ONE
[2022-01-29 04:35] VITALS: BP 139/80
[2022-01-29] MEDS: INSULIN LISPRO 100 UNITS/ML SQ PRN ×2 (05:52→11:48)
[2022-01-29] MEDS: HYDROCODONE/ACETAMINOPHEN 5-325 MG TABLET PO PRN (05:53)
[2022-01-29 06:07] LABS: BASOPHILS % (AUTO) 0.7 % (0.0-2.0); EOSINOPHILS % (AUTO) 2.7 % (1.0-6.0); HEMATOCRIT 37.7 % (36-46); HEMOGLOBIN 12.9 g/dL (12.0-16.0); LYMPHOCYTES # (AUTO) 2.6 K/uL (1.0-4.8); MEAN CORPUSCULAR HEMOGLOBIN 29.5 pg (26.0-34.0); MEAN CORPUSCULAR HGB CONC 34.3 G/dL (31.0-37.0); MEAN CORPUSCULAR VOLUME 86 fL (80-100); MONOCYTES # (AUTO) 0.4 K/uL (0.1-1.0); MONOCYTES % (AUTO) 6.4 % (2.0-9.0); NEUTROPHILS # (AUTO) 2.5 K/uL (1.8-7.7); NEUTROPHILS % (AUTO) 44.2 % (40.0-70.0); PLATELET COUNT (AUTO) 299 K/uL (150-450); RED BLOOD CELL COUNT(AUTO) 4.38 MIL/uL (4.00-5.20); RED CELL DISTRIBUTION WIDTH 12.9 % (11.5-14.5)
[2022-01-29 06:35] LABS: ANION GAP 9 mmol/L (8-16); CALCIUM, TOTAL 9.2 mg/dL (8.8-10.5); CARBON DIOXIDE 25 mmol/L (22-29); CHLORIDE 99 mmol/L (98-107); CREATININE 0.86 mg/dL (0.60-1.30); GLOMERULAR FILTR. RATE CALC > 60 mL/min (>60); GLUCOSE,RANDOM 279 mg/dL (70-110); POTASSIUM 3.9 mmol/L (3.5-5.1); SODIUM SERUM 133 mmol/L (136-145); UREA NITROGEN, BLOOD 19 mg/dL (7-18)
[2022-01-29 07:33] VITALS: BP 135/84
[2022-01-29] MEDS: OSELTAMIVIR PHOSPHATE 75 MG CAPSULE PO SCH (08:27)
[2022-01-29] MEDS: FENOFIBRATE 160 MG TABLET PO SCH (08:27)
[2022-01-29] MEDS: CARVEDILOL 25 MG TABLET PO SCH (08:27)
[2022-01-29] MEDS: PANTOPRAZOLE SODIUM 40 MG DR TABLET PO SCH (08:27)
[2022-01-29] MEDS: CARISOPRODOL 350 MG TABLET PO SCH (08:27)
[2022-01-29] MEDS: AmLODIPine BESYLATE 10 MG TABLET PO SCH (08:27)
[2022-01-29] MEDS: HEPARIN SODIUM,PORCINE 5,000 UNITS/ML VIAL SQ SCH (08:28)
[2022-01-29] MEDS: MAGNESIUM SULFATE 2 GM/WATER 50 ML IV PRN (08:28)
[2022-01-29] MEDS: DOCUSATE SODIUM 100 MG CAPSULE PO SCH (08:39)
[2022-01-29] MEDS ORDERED: OSEL75 PO (10:15)
[2022-01-29] MEDS ORDERED: MAGN200T4 PO (10:19)
[2022-01-29] MEDS ORDERED: CEPH-558 PO (10:19)
[2022-01-29 11:45] VITALS: BP 137/83
[2022-01-29 17:46] LABS: GLUCOMETER DEV NAME(LOC) 5S.2B; GLUCOSE,POINT OF CARE 255 MG/DL (70-110)
[2022-01-30 05:41] LABS: GLUCOMETER DEV NAME(LOC) 5N.3; GLUCOSE,POINT OF CARE 243 MG/DL (70-110)
== END 2022-01-29 13:10 | disposition home or self-care (01) | DRG 194 ==
LOC: EMS 13:51 → 5N 20:19
PROVIDERS: ADMIT Internal Medicine; ATTEND Internal Medicine
PROC: 4B02XTZ Measurement of Cardiac Defibrillator, External Approach (ICD-10-PCS; principal; 2022-01-28)
DX: J10.00 Influenza due to other identified influenza virus with unspecified type of pneumonia (principal); E87.1 Hypo-osmolality and hyponatremia; F11.20 Opioid dependence, uncomplicated; N39.0 Urinary tract infection, site not specified; Z68.41 Body mass index [BMI] 40.0-44.9, adult; R65.10 Systemic inflammatory response syndrome (SIRS) of non-infectious origin without acute organ dysfunction; Z20.822 Contact with and (suspected) exposure to COVID-19; E11.65 Type 2 diabetes mellitus with hyperglycemia; E83.42 Hypomagnesemia; G89.4 Chronic pain syndrome; E66.01 Morbid (severe) obesity due to excess calories; E78.5 Hyperlipidemia, unspecified; F41.9 Anxiety disorder, unspecified; R00.0 Tachycardia, unspecified; I11.9 Hypertensive heart disease without heart failure; G43.909 Migraine, unspecified, not intractable, without status migrainosus; I49.5 Sick sinus syndrome; K21.9 Gastro-esophageal reflux disease without esophagitis; M54.9 Dorsalgia, unspecified; I25.10 Atherosclerotic heart disease of native coronary artery without angina pectoris; Z93.3 Colostomy status; Z86.74 Personal history of sudden cardiac arrest; Z87.442 Personal history of urinary calculi; Z90.710 Acquired absence of both cervix and uterus; Z79.899 Other long term (current) drug therapy; Z88.8 Allergy status to other drugs, medicaments and biological substances; I25.2 Old myocardial infarction; Z90.49 Acquired absence of other specified parts of digestive tract; Z95.810 Presence of automatic (implantable) cardiac defibrillator
CPT/HCPCS: 71045; 80048; 80053; 81001; 81002; 82040; 82550; 82728; 82962; 83605; 83735; 83880; 84100; 84145; 84484; 84702; 85014; 85018; 85025; 85379; 85610; 86140; 87040; 87086; 87804; 93005; 93306; 99291; J1644; J3475; J7050; 36415-L1; 36415-TC

== ENCOUNTER → 2022-02-26 | Outpatient (CLI) | payer MEDICARE, OTHER ==
[~2022-02-26] VITALS: Ht 154.9 cm; Wt 95.5 kg
[~2022-02-26] MED LIST changes: +CARI-493 PO; +CARV25 PO; +CEPH-558 PO; +INS7030 SQ; -LEVO250T75 PO; +LOPE2CAP PO; +MAGN200T4 PO; +OSEL75 PO; -TRAM50TA4 PO
[2022-02-26 14:43] VITALS: BP 103/64
== END | disposition home or self-care (01) ==
LOC: SRCNTR 09:55 → EDSTATUS 10:15
PROVIDERS: ATTEND Internal Medicine Cardiovascular Disease
DX: Z45.02 Encounter for adjustment and management of automatic implantable cardiac defibrillator (principal)
CPT/HCPCS: 93289; G0463

== ENCOUNTER 2022-03-25 14:44 | Emergency (ER) | payer MEDICARE, OTHER ==
[~2022-03-25] VITALS: Ht 154.9 cm; Wt 95.0 kg
[2022-03-25 16:12] LABS: COVID AG,FIA SOURCE NASAL SWAB
[2022-03-25 16:32] LABS: BASOPHILS % (AUTO) 0.3 % (0.0-2.0); EOSINOPHILS % (AUTO) 1.9 % (1.0-6.0); HEMATOCRIT 39.2 % (36-46); LYMPHOCYTES # (AUTO) 0.7 K/uL (1.0-4.8); LYMPHOCYTES % (AUTO) 6.1 % (22.0-44.0); MEAN CORPUSCULAR HEMOGLOBIN 28.9 pg (26.0-34.0); MEAN CORPUSCULAR HGB CONC 33.1 G/dL (31.0-37.0); MEAN CORPUSCULAR VOLUME 87 fL (80-100); MONOCYTES # (AUTO) 0.9 K/uL (0.1-1.0); MONOCYTES % (AUTO) 7.4 % (2.0-9.0); NEUTROPHILS # (AUTO) 10.1 K/uL (1.8-7.7); NEUTROPHILS % (AUTO) 84.3 % (40.0-70.0); PLATELET COUNT (AUTO) 335 K/uL (150-450); RED BLOOD CELL COUNT(AUTO) 4.48 MIL/uL (4.00-5.20)
[2022-03-25 16:37] LABS: INFLUENZA TYPE A NEGATIVE FOR TYPE A (NEGATIVE); INFLUENZA TYPE B NEGATIVE FOR TYPE B (NEGATIVE)
[2022-03-25 16:49] LABS: CALCIUM, TOTAL 9.5 mg/dL (8.8-10.5); CREATININE 1.22 mg/dL (0.60-1.30); POTASSIUM 4.1 mmol/L (3.5-5.1)
[2022-03-25 16:54] LABS: ALBUMIN 3.7 g/dL (3.4-5.0); BILIRUBIN,TOTAL 0.2 mg/dL (0.1-1.0); TOTAL PROTEIN, SERUM 8.2 g/dL (6.4-8.2)
[2022-03-25 16:56] LABS: GLUCOMETER DEV NAME(LOC) ERT.5; GLUCOSE,POINT OF CARE 222 MG/DL (70-110)
[2022-03-25 17:51] LABS: APPEARANCE,URINE CLEAR (CLEAR); BILIRUBIN,URINE NEGATIVE (NEGATIVE); GLUCOSE, URINE (UA) TRACE mg/dL (NEGATIVE); KETONES,URINE NEGATIVE (NEGATIVE); LEUKOCYTE ESTERASE ,URINE SMALL (NEGATIVE); NITRATE,URINE NEGATIVE (NEGATIVE); OCCULT BLOOD,URINE MODERATE (NEGATIVE); PROTEIN,URINE >600,SEE CONFIRM mg/dL (NEGATIVE); SPECIFIC GRAVITIY, URINE 1.027 (1.003-1.030); UROBILINOGEN,URINE <=1.0 mg/dL (<=1.0)
[2022-03-25 18:00] LABS: SULFOSALICYLIC ACID,URINE 3+ (Negative)
[2022-03-25 18:01] LABS: BACTERIA,URINE Few /HPF (None Seen); SQUAMOUS EPITHELIAL CELL,UR Few /LPF (None Seen)
[2022-03-25] MEDS ORDERED: SODIUM CHLORIDE 0.9% 1,000 ML IV ONE (18:15)
[2022-03-25] MEDS ORDERED: ONDANSETRON HCL 4 MG/2 ML VIAL IVP ONE (18:15)
[2022-03-25] MEDS ORDERED: ACETAMINOPHEN 1000 MG/ISO-OSM 100 ML IV ONE (18:15)
[2022-03-25] MEDS ORDERED: CefTRIAXone 1 GM/DEXTROSE 50 ML IV ONE (18:15)
[2022-03-25] MEDS ORDERED: LOPERAMIDE HCL 2 MG CAPSULE PO ONE (18:15)
[2022-03-25] MEDS ORDERED: ONDA-104 PO (20:04)
[2022-03-25] MEDS ORDERED: SULF-261 PO (20:04)
[2022-03-25] MEDS ORDERED: PHEN-1103 PO (20:04)
[2022-03-25 20:42] VITALS: BP 130/78
== END 2022-03-25 21:07 | disposition home or self-care (01) ==
LOC: EMS 14:44
DX: N39.0 Urinary tract infection, site not specified (principal); R11.2 Nausea with vomiting, unspecified; R19.7 Diarrhea, unspecified; I10 Essential (primary) hypertension; E11.9 Type 2 diabetes mellitus without complications; K21.9 Gastro-esophageal reflux disease without esophagitis; Z88.8 Allergy status to other drugs, medicaments and biological substances; Z79.899 Other long term (current) drug therapy; Z79.82 Long term (current) use of aspirin; Z20.822 Contact with and (suspected) exposure to COVID-19
CPT/HCPCS: 36415; 80053; 81001; 82962; 83690; 83880; 84484; 85025; 87086; 87426; 87804; 93005; 96365; 96368; 96375; 99284; J0131; J0696; J2405; J7030; 81002

== ENCOUNTER 2022-04-12 22:08 | Emergency (ER) | payer MEDICARE, OTHER ==
[~2022-04-12] VITALS: Ht 157.5 cm; Wt 113.6 kg
[~2022-04-12 22:08] MED LIST changes: +PHEN-1103 PO; +SULF-261 PO
[2022-04-12 22:46] LABS: GLUCOSE,POINT OF CARE 219 MG/DL (70-110)
[2022-04-12] MEDS ORDERED: ACETAMINOPHEN 500 MG TABLET PO ONE (23:15)
[2022-04-12 23:38] LABS: COVID AG,FIA SOURCE NASOPHARYNGEAL
[2022-04-12] MEDS ORDERED: FAMOTIDINE 20 MG TABLET PO ONE (23:45)
[2022-04-12] MEDS ORDERED: ONDANSETRON HCL 4 MG TABLET PO ONE (23:45)
[2022-04-12 23:50] LABS: BASOPHILS % (AUTO) 0.8 % (0.0-2.0); CALCIUM, TOTAL 9.6 mg/dL (8.8-10.5); CREATININE 1.12 mg/dL (0.60-1.30); HEMATOCRIT 34.6 % (36-46); HEMOGLOBIN 11.8 g/dL (12.0-16.0); LYMPHOCYTES # (AUTO) 2.3 K/uL (1.0-4.8); LYMPHOCYTES % (AUTO) 23.9 % (22.0-44.0); MEAN CORPUSCULAR HEMOGLOBIN 29.5 pg (26.0-34.0); MEAN CORPUSCULAR VOLUME 87 fL (80-100); MONOCYTES # (AUTO) 0.9 K/uL (0.1-1.0); MONOCYTES % (AUTO) 9.1 % (2.0-9.0); NEUTROPHILS # (AUTO) 6.2 K/uL (1.8-7.7); NEUTROPHILS % (AUTO) 65.2 % (40.0-70.0); PLATELET COUNT (AUTO) 271 K/uL (150-450); POTASSIUM 4.4 mmol/L (3.5-5.1); RED BLOOD CELL COUNT(AUTO) 3.98 MIL/uL (4.00-5.20); RED CELL DISTRIBUTION WIDTH 13.2 % (11.5-14.5)
[2022-04-12 23:55] LABS: ALBUMIN 3.5 g/dL (3.4-5.0); BILIRUBIN,TOTAL 0.2 mg/dL (0.1-1.0); TOTAL PROTEIN, SERUM 7.8 g/dL (6.4-8.2)
[2022-04-12 23:58] LABS: INFLUENZA TYPE A NEGATIVE FOR TYPE A (NEGATIVE); INFLUENZA TYPE B NEGATIVE FOR TYPE B (NEGATIVE)
[2022-04-12 23:59] LABS: LACTIC ACID 0.6 mmol/L (0.4-2.0)
[2022-04-13 00:22] LABS: APPEARANCE,URINE CLEAR (CLEAR); BILIRUBIN,URINE NEGATIVE (NEGATIVE); GLUCOSE, URINE (UA) NEGATIVE (NEGATIVE); KETONES,URINE NEGATIVE (NEGATIVE); LEUKOCYTE ESTERASE ,URINE SMALL (NEGATIVE); NITRATE,URINE NEGATIVE (NEGATIVE); OCCULT BLOOD,URINE LARGE (NEGATIVE); PH,URINE 5.5 (5.0-8.0); PROTEIN,URINE 100-200,SEE CONFIRM mg/dL (NEGATIVE); SPECIFIC GRAVITIY, URINE 1.015 (1.003-1.030); UROBILINOGEN,URINE <=1.0 mg/dL (<=1.0)
[2022-04-13] MEDS ORDERED: ONDA-104 PO (00:29)
[2022-04-13 00:35] LABS: SULFOSALICYLIC ACID,URINE 1+ (Negative)
[2022-04-13 00:37] LABS: BACTERIA,URINE None Seen /HPF (None Seen); WBC,URINE 0-2 /HPF (0-5)
[2022-04-13 03:13] VITALS: BP 150/75
== END 2022-04-13 03:48 | disposition home or self-care (01) ==
LOC: EMS 22:11
DX: R52 Pain, unspecified (principal); R11.0 Nausea; R19.7 Diarrhea, unspecified; F41.9 Anxiety disorder, unspecified; E11.9 Type 2 diabetes mellitus without complications; I25.10 Atherosclerotic heart disease of native coronary artery without angina pectoris; I10 Essential (primary) hypertension; G43.909 Migraine, unspecified, not intractable, without status migrainosus; Z87.39 Personal history of other diseases of the musculoskeletal system and connective tissue; Z90.49 Acquired absence of other specified parts of digestive tract; Z90.710 Acquired absence of both cervix and uterus; Z96.89 Presence of other specified functional implants; Z98.890 Other specified postprocedural states; Z87.442 Personal history of urinary calculi; Z86.79 Personal history of other diseases of the circulatory system; Z87.19 Personal history of other diseases of the digestive system; Z88.8 Allergy status to other drugs, medicaments and biological substances; Z20.822 Contact with and (suspected) exposure to COVID-19
CPT/HCPCS: 36415; 71045; 74176; 80053; 81001; 82550; 82962; 83605; 85025; 87426; 87804; 99285; Q0162; 81002

== ENCOUNTER → 2022-05-16 | Outpatient (CLI) | payer MEDICARE, OTHER ==
[~2022-05-16] MED LIST changes: -EMPA10TA PO; +EMPA10TA3 PO
[2022-05-16 11:34] VITALS: BP 139/81
== END | disposition home or self-care (01) ==
LOC: SRCNTR 10:30
PROVIDERS: ATTEND Internal Medicine Cardiovascular Disease
DX: Z45.02 Encounter for adjustment and management of automatic implantable cardiac defibrillator (principal); R00.0 Tachycardia, unspecified
CPT/HCPCS: 93289; G0463

== ENCOUNTER → 2022-07-23 | Outpatient (CLI) | payer MEDICARE, OTHER ==
[~2022-07-23] MED LIST changes: -PHEN-1103 PO; +PHEN-674 PO
[2022-07-23 12:45] VITALS: BP 137/84
== END | disposition home or self-care (01) ==
LOC: SRCNTR 10:07
PROVIDERS: ATTEND Internal Medicine Cardiovascular Disease
DX: Z45.02 Encounter for adjustment and management of automatic implantable cardiac defibrillator (principal)
CPT/HCPCS: 93289; G0463

== ENCOUNTER 2022-08-15 17:03 | Inpatient (IN) | payer MEDICARE, OTHER ==
[~2022-08-15] VITALS: Ht 154.9 cm; Wt 91.0 kg
[2022-08-15] MEDS ORDERED: ACETAMINOPHEN 325 MG TABLET PO ONE (18:15)
[2022-08-15 18:26] LABS: GLUCOSE,POINT OF CARE 352 MG/DL (70-110)
[2022-08-15] MEDS ORDERED: SODIUM CHLORIDE 0.9% 1,000 ML IV ONE ×3 (20:00→22:30)
[2022-08-15 20:30] LABS: EOSINOPHILS % (AUTO) 0.9 % (1.0-6.0); HEMATOCRIT 33.7 % (36-46); HEMOGLOBIN 11.5 g/dL (12.0-16.0); LYMPHOCYTES # (AUTO) 1.7 K/uL (1.0-4.8); LYMPHOCYTES % (AUTO) 25.2 % (22.0-44.0); MEAN CORPUSCULAR HEMOGLOBIN 30.5 pg (26.0-34.0); MEAN CORPUSCULAR HGB CONC 34.2 G/dL (31.0-37.0); MEAN CORPUSCULAR VOLUME 89 fL (80-100); MONOCYTES # (AUTO) 0.5 K/uL (0.1-1.0); MONOCYTES % (AUTO) 7.7 % (2.0-9.0); NEUTROPHILS # (AUTO) 4.5 K/uL (1.8-7.7); NEUTROPHILS % (AUTO) 65.2 % (40.0-70.0); PLATELET COUNT (AUTO) 258 K/uL (150-450); RED BLOOD CELL COUNT(AUTO) 3.77 MIL/uL (4.00-5.20); RED CELL DISTRIBUTION WIDTH 12.6 % (11.5-14.5)
[2022-08-15 20:34] LABS: COVID AG,FIA SOURCE NASAL SWAB
[2022-08-15 20:43] LABS: APPEARANCE,URINE CLEAR (CLEAR); BILIRUBIN,URINE NEGATIVE (NEGATIVE); GLUCOSE, URINE (UA) >=1000 mg/dL (NEGATIVE); KETONES,URINE NEGATIVE (NEGATIVE); LEUKOCYTE ESTERASE ,URINE NEGATIVE (NEGATIVE); NITRATE,URINE NEGATIVE (NEGATIVE); OCCULT BLOOD,URINE LARGE (NEGATIVE); PROTEIN,URINE 300-600,SEE CONFIRM mg/dL (NEGATIVE); SPECIFIC GRAVITIY, URINE 1.015 (1.003-1.030); UROBILINOGEN,URINE <=1.0 mg/dL (<=1.0)
[2022-08-15 20:51] LABS: LACTIC ACID 2.3 mmol/L (0.4-2.0); SULFOSALICYLIC ACID,URINE 4+ (Negative)
[2022-08-15 20:55] LABS: ALANINE AMINOTRANSFERASE 25 U/L (12-78); ALBUMIN 2.7 g/dL (3.4-5.0); ALKALINE PHOSPHATASE 82 U/L (46-116); ANION GAP 7 mmol/L (8-16); ASPARTATE AMINOTRANSFERASE 21 U/L (15-37); BACTERIA,URINE None Seen /HPF (None Seen); BILIRUBIN,TOTAL 0.3 mg/dL (0.1-1.0); CALCIUM, TOTAL 8.4 mg/dL (8.8-10.5); CARBON DIOXIDE 24 mmol/L (22-29); CHLORIDE 98 mmol/L (98-107); LIPASE 67 U/L (73-393); SODIUM SERUM 129 mmol/L (136-145); TOTAL PROTEIN, SERUM 6.6 g/dL (6.4-8.2); UREA NITROGEN, BLOOD 18 mg/dL (7-18)
[2022-08-15 20:57] LABS: GLOMERULAR FILTR. RATE CALC 39 mL/min (>60); GLUCOSE,RANDOM 464 mg/dL (70-110)
[2022-08-15 21:02] LABS: INFLUENZA TYPE A NEGATIVE FOR TYPE A (NEGATIVE); INFLUENZA TYPE B NEGATIVE FOR TYPE B (NEGATIVE)
[2022-08-15] MEDS ORDERED: CefoTEtan DISOD 2 GM/DEXTROSE 50 ML IV ONE (21:30)
[2022-08-15] MEDS ORDERED: ACETAMINOPHEN 325 MG TABLET PO PRN ×2 (22:30)
[2022-08-15] MEDS ORDERED: 0.9% SODIUM CHLORIDE 10 ML SYRINGE IVP PRN (22:30)
[2022-08-15] MEDS ORDERED: DEXTROSE 50%-WATER 25 GM/50 ML SYRINGE IVP PRN (22:30)
[2022-08-15] MEDS ORDERED: OxyCODONE HCL/ACETAMINOPHEN 5-325 MG TABLET PO PRN (22:30)
[2022-08-15] MEDS ORDERED: ONDANSETRON HCL 4 MG/2 ML VIAL IVP PRN ×2 (22:30)
[2022-08-15] MEDS ORDERED: INSULIN GLARGINE,HUM.REC.ANLOG 100 UNITS/ML SQ SCH (22:30)
[2022-08-15] MEDS ORDERED: VANCOMYCIN HCL 1.5 GM in DEXTROSE 5%-WATER 250 ML IV ONE (23:00)
[2022-08-16] MEDS: HEPARIN SODIUM,PORCINE 5,000 UNITS/ML VIAL SQ SCH ×3 (00:24→16:57)
[2022-08-16] MEDS: PIPERACILLIN/TAZO 3.375 GM/D5W 50 ML IV SCH ×3 (05:44→17:39)
[2022-08-16 05:52] LABS: CALCIUM, TOTAL 8.8 mg/dL (8.8-10.5); CREATININE 1.15 mg/dL (0.60-1.30)
[2022-08-16] MEDS ORDERED: VANCOMYCIN HCL 750 MG in DEXTROSE 5%-WATER 250 ML IV SCH (08:00)
[2022-08-16] MEDS: FAMOTIDINE 20 MG TABLET PO SCH (08:37)
[2022-08-16] MEDS: INSULIN LISPRO 100 UNITS/ML SQ PRN ×3 (08:54→20:13)
[2022-08-16 09:06] LABS: GLUCOSE,POINT OF CARE 335 MG/DL (70-110)
[2022-08-16] MEDS ORDERED: VANCOMYCIN HCL 500 MG in DEXTROSE 5%-WATER 100 ML IV ONE (10:00)
[2022-08-16 14:56] VITALS: BP 160/96
[2022-08-16] MEDS: OxyCODONE HCL/ACETAMINOPHEN 5-325 MG TABLET PO PRN ×2 (16:57→21:36)
[2022-08-16] MEDS ORDERED: SODIUM CHLORIDE 0.9% 250 ML IV ONE (17:11)
[2022-08-16 18:46] LABS: GLUCOMETER DEV NAME(LOC) 5N.1C; GLUCOSE,POINT OF CARE 334 MG/DL (70-110)
[2022-08-16] MEDS: VANCOMYCIN HCL 1 GM in DEXTROSE 5%-WATER 250 ML IV SCH (19:49)
[2022-08-16 20:08] VITALS: BP 147/76
[2022-08-16] MEDS ORDERED: INSULIN GLARGINE,HUM.REC.ANLOG 100 UNITS/ML SQ SCH (21:00)
[2022-08-16] MEDS ORDERED: MORPHINE SULFATE 2 MG/ML SYRINGE IVP ONE (22:30)
[2022-08-17] MEDS: PIPERACILLIN/TAZO 3.375 GM/D5W 50 ML IV SCH ×4 (00:02→17:03)
[2022-08-17] MEDS: HEPARIN SODIUM,PORCINE 5,000 UNITS/ML VIAL SQ SCH ×3 (00:02→15:57)
[2022-08-17 00:05] VITALS: BP 137/87
[2022-08-17 04:30] VITALS: BP 132/75
[2022-08-17] MEDS: OxyCODONE HCL/ACETAMINOPHEN 5-325 MG TABLET PO PRN ×3 (05:58→20:37)
[2022-08-17] MEDS: INSULIN LISPRO 100 UNITS/ML SQ PRN ×4 (05:59→20:36)
[2022-08-17 06:47] LABS: GLUCOMETER DEV NAME(LOC) 5S.1B; GLUCOSE,POINT OF CARE 345 MG/DL (70-110)
[2022-08-17 06:47] LABS: GLUCOMETER DEV NAME(LOC) 5S.1B; GLUCOSE,POINT OF CARE 314 MG/DL (70-110)
[2022-08-17 07:24] VITALS: BP 134/96
[2022-08-17 07:30] LABS: CALCIUM, TOTAL 9.2 mg/dL (8.8-10.5); CREATININE 0.96 mg/dL (0.60-1.30); POTASSIUM 3.7 mmol/L (3.5-5.1)
[2022-08-17] MEDS: VANCOMYCIN HCL 1 GM in DEXTROSE 5%-WATER 250 ML IV SCH ×2 (08:44→20:37)
[2022-08-17] MEDS: FAMOTIDINE 20 MG TABLET PO SCH (08:44)
[2022-08-17 11:48] VITALS: BP 154/93
[2022-08-17] MEDS: AmLODIPine BESYLATE 10 MG TABLET PO SCH (15:58)
[2022-08-17 16:01] VITALS: BP 180/98
[2022-08-17 18:01] LABS: GLUCOMETER DEV NAME(LOC) 5N.1C; GLUCOSE,POINT OF CARE 295 MG/DL (70-110)
[2022-08-17 18:01] LABS: GLUCOMETER DEV NAME(LOC) 5N.1C; GLUCOSE,POINT OF CARE 292 MG/DL (70-110)
[2022-08-17 20:35] VITALS: BP 143/83
[2022-08-17] MEDS ORDERED: INSULIN GLARGINE,HUM.REC.ANLOG 100 UNITS/ML SQ SCH (21:00)
[2022-08-17 22:02] LABS: GLUCOMETER DEV NAME(LOC) 5S.1B; GLUCOSE,POINT OF CARE 287 MG/DL (70-110)
[2022-08-18] VITALS (7 sets, daily range): BP systolic 138–166; BP diastolic 81–106
[2022-08-18] MEDS: PIPERACILLIN/TAZO 3.375 GM/D5W 50 ML IV SCH ×4 (00:35→17:54)
[2022-08-18] MEDS: OxyCODONE HCL/ACETAMINOPHEN 5-325 MG TABLET PO PRN ×4 (00:35→20:43)
[2022-08-18] MEDS: HEPARIN SODIUM,PORCINE 5,000 UNITS/ML VIAL SQ SCH ×3 (00:35→16:00)
[2022-08-18 06:03] LABS: BASOPHILS % (AUTO) 0.8 % (0.0-2.0); EOSINOPHILS % (AUTO) 4.2 % (1.0-6.0); HEMATOCRIT 32.8 % (36-46); HEMOGLOBIN 11.4 g/dL (12.0-16.0); LYMPHOCYTES # (AUTO) 1.6 K/uL (1.0-4.8); LYMPHOCYTES % (AUTO) 34.7 % (22.0-44.0); MEAN CORPUSCULAR HEMOGLOBIN 30.9 pg (26.0-34.0); MEAN CORPUSCULAR HGB CONC 34.9 G/dL (31.0-37.0); MEAN CORPUSCULAR VOLUME 89 fL (80-100); MONOCYTES # (AUTO) 0.5 K/uL (0.1-1.0); MONOCYTES % (AUTO) 9.9 % (2.0-9.0); NEUTROPHILS # (AUTO) 2.4 K/uL (1.8-7.7); NEUTROPHILS % (AUTO) 50.4 % (40.0-70.0); PLATELET COUNT (AUTO) 264 K/uL (150-450); RED CELL DISTRIBUTION WIDTH 12.7 % (11.5-14.5)
[2022-08-18 06:17] LABS: CALCIUM, TOTAL 9.7 mg/dL (8.8-10.5); CREATININE 1.08 mg/dL (0.60-1.30); POTASSIUM 3.7 mmol/L (3.5-5.1); VANCOMYCIN,RANDOM 17.3 mcg/mL (25.0-50.0)
[2022-08-18] MEDS: INSULIN LISPRO 100 UNITS/ML SQ PRN ×4 (06:31→20:41)
[2022-08-18] MEDS: FAMOTIDINE 20 MG TABLET PO SCH (08:57)
[2022-08-18] MEDS: AmLODIPine BESYLATE 10 MG TABLET PO SCH (08:58)
[2022-08-18] MEDS: VANCOMYCIN HCL 1 GM in DEXTROSE 5%-WATER 250 ML IV SCH (09:00)
[2022-08-18] MEDS: CARVEDILOL 6.25 MG TABLET PO SCH ×2 (11:01→20:43)
[2022-08-18] MEDS: CARISOPRODOL 350 MG TABLET PO SCH (20:43)
[2022-08-18] MEDS: VANCOMYCIN HCL 1.25 GM in DEXTROSE 5%-WATER 250 ML IV SCH (20:44)
[2022-08-18] MEDS ORDERED: INSULIN GLARGINE,HUM.REC.ANLOG 100 UNITS/ML SQ SCH (21:00)
[2022-08-18 22:01] LABS: GLUCOMETER DEV NAME(LOC) 5S.2B; GLUCOSE,POINT OF CARE 317 MG/DL (70-110)
[2022-08-19] MEDS: PIPERACILLIN/TAZO 3.375 GM/D5W 50 ML IV SCH ×2 (00:01→06:51)
[2022-08-19] MEDS: HEPARIN SODIUM,PORCINE 5,000 UNITS/ML VIAL SQ SCH ×2 (00:01→07:39)
[2022-08-19 04:38] VITALS: BP 144/94
[2022-08-19 06:25] LABS: CALCIUM, TOTAL 10.1 mg/dL (8.8-10.5); CREATININE 1.1 mg/dL (0.60-1.30); POTASSIUM 3.9 mmol/L (3.5-5.1)
[2022-08-19] MEDS ORDERED: SODIUM CHLORIDE 0.9% 250 ML IV ONE (06:49)
[2022-08-19] MEDS: INSULIN LISPRO 100 UNITS/ML SQ PRN (06:51)
[2022-08-19] MEDS: FAMOTIDINE 20 MG TABLET PO SCH (07:39)
[2022-08-19] MEDS: CARVEDILOL 6.25 MG TABLET PO SCH (07:39)
[2022-08-19] MEDS: CARISOPRODOL 350 MG TABLET PO SCH (07:39)
[2022-08-19] MEDS: AmLODIPine BESYLATE 10 MG TABLET PO SCH (07:39)
[2022-08-19 07:58] VITALS: BP 172/97
[2022-08-19] MEDS ORDERED: AZIT-104 PO (08:09)
[2022-08-19] MEDS: VANCOMYCIN HCL 1.25 GM in DEXTROSE 5%-WATER 250 ML IV SCH (08:14)
[2022-08-19 11:08] VITALS: BP 150/100
[2022-08-19] MEDS ORDERED: INSULIN GLARGINE,HUM.REC.ANLOG 100 UNITS/ML SQ SCH (21:00)
[2022-08-20 23:46] LABS: GLUCOMETER DEV NAME(LOC) 5N.1C; GLUCOSE,POINT OF CARE 282 MG/DL (70-110)
[2022-08-20 23:47] LABS: GLUCOMETER DEV NAME(LOC) 5S.1B; GLUCOSE,POINT OF CARE 278 MG/DL (70-110)
== END 2022-08-19 12:30 | disposition home or self-care (01) | DRG 872 ==
LOC: EMS 17:21 → 5S 08-16 12:49
PROVIDERS: ADMIT Internal Medicine; ATTEND Internal Medicine
DX: A41.9 Sepsis, unspecified organism (principal); E44.0 Moderate protein-calorie malnutrition; N17.9 Acute kidney failure, unspecified; I49.5 Sick sinus syndrome; E11.65 Type 2 diabetes mellitus with hyperglycemia; I11.0 Hypertensive heart disease with heart failure; E66.01 Morbid (severe) obesity due to excess calories; I50.9 Heart failure, unspecified; G89.29 Other chronic pain; M54.9 Dorsalgia, unspecified; G43.909 Migraine, unspecified, not intractable, without status migrainosus; R65.20 Severe sepsis without septic shock; Z20.822 Contact with and (suspected) exposure to COVID-19; E78.00 Pure hypercholesterolemia, unspecified; E11.40 Type 2 diabetes mellitus with diabetic neuropathy, unspecified; Z68.38 Body mass index [BMI] 38.0-38.9, adult; Z91.14 Patient's other noncompliance with medication regimen; Z88.8 Allergy status to other drugs, medicaments and biological substances; Z79.899 Other long term (current) drug therapy; Z79.1 Long term (current) use of non-steroidal anti-inflammatories (NSAID); Z95.0 Presence of cardiac pacemaker; Z79.4 Long term (current) use of insulin; Z82.49 Family history of ischemic heart disease and other diseases of the circulatory system; Z83.3 Family history of diabetes mellitus; Z91.199 Patient's noncompliance with other medical treatment and regimen due to unspecified reason; Z93.3 Colostomy status; Z68.37 Body mass index [BMI] 37.0-37.9, adult
CPT/HCPCS: 71045; 74176; 80048; 80053; 80202; 81001; 81002; 82009; 82962; 83605; 83690; 83880; 84484; 85025; 87040; 87804; 93005; 93306; 99285; J1644; J1815; J2270; J2543; J3370; J3490; J7030; J7050; J7060; 36415-L1; 36415-TC

== ENCOUNTER → 2022-08-20 | Outpatient (CLI) | payer MEDICARE, OTHER ==
[~2022-08-20] VITALS: Ht 147.3 cm; Wt 88.5 kg
[~2022-08-20] MED LIST changes: +AZIT-104 PO; -CEPH-558 PO; -LOPE2CAP PO; -METF-1211 PO; -OSEL75 PO; -PHEN-674 PO; -SULF-261 PO
[2022-08-20 10:28] VITALS: BP 123/87
== END | disposition home or self-care (01) ==
LOC: SRCNTR 10:15
PROVIDERS: ATTEND Internal Medicine Cardiovascular Disease
DX: I10 Essential (primary) hypertension (principal); Z09 Encounter for follow-up examination after completed treatment for conditions other than malignant neoplasm; E11.9 Type 2 diabetes mellitus without complications; E78.5 Hyperlipidemia, unspecified; E66.9 Obesity, unspecified; I46.9 Cardiac arrest, cause unspecified; M54.50 Low back pain, unspecified; Z95.810 Presence of automatic (implantable) cardiac defibrillator
CPT/HCPCS: G0463; Z7500

== ENCOUNTER 2022-08-29 00:43 | Emergency (ER) | payer MEDICARE, OTHER ==
[~2022-08-29] VITALS: Ht 154.9 cm; Wt 91.0 kg
[~2022-08-29 00:43] MED LIST changes: -EMPA10TA3 PO; -INS7030 SQ
[2022-08-29] MEDS ORDERED: ASPIRIN 81 MG CHEWABLE TABLET PO ONE (01:00)
[2022-08-29 01:54] LABS: BASOPHILS % (AUTO) 1.3 % (0.0-2.0); HEMATOCRIT 30.7 % (36-46); HEMOGLOBIN 10.6 g/dL (12.0-16.0); LYMPHOCYTES # (AUTO) 2.6 K/uL (1.0-4.8); LYMPHOCYTES % (AUTO) 31.6 % (22.0-44.0); MEAN CORPUSCULAR HEMOGLOBIN 30.8 pg (26.0-34.0); MEAN CORPUSCULAR HGB CONC 34.6 G/dL (31.0-37.0); MEAN CORPUSCULAR VOLUME 89 fL (80-100); MONOCYTES # (AUTO) 0.6 K/uL (0.1-1.0); MONOCYTES % (AUTO) 7.4 % (2.0-9.0); NEUTROPHILS # (AUTO) 4.7 K/uL (1.8-7.7); NEUTROPHILS % (AUTO) 57.7 % (40.0-70.0); PLATELET COUNT (AUTO) 467 K/uL (150-450); RED BLOOD CELL COUNT(AUTO) 3.45 MIL/uL (4.00-5.20); RED CELL DISTRIBUTION WIDTH 12.4 % (11.5-14.5)
[2022-08-29 02:05] LABS: INR 1.1 (0.9-1.1); PROTHROMBIN TIME 11.3 SEC (9.4-11.6)
[2022-08-29 02:07] LABS: ALBUMIN 3.3 g/dL (3.4-5.0); BILIRUBIN,TOTAL 0.6 mg/dL (0.1-1.0); CALCIUM, TOTAL 9.7 mg/dL (8.8-10.5); CREATININE 1.21 mg/dL (0.60-1.30); POTASSIUM 4.2 mmol/L (3.5-5.1); TOTAL PROTEIN, SERUM 7.8 g/dL (6.4-8.2)
[2022-08-29] MEDS ORDERED: SODIUM CHLORIDE 0.9% 1,000 ML IV ONE (02:15)
[2022-08-29] MEDS ORDERED: NITROGLYCERIN 0.4 MG SUBLINGUAL TABLET #25 SL ONE (02:15)
[2022-08-29] MEDS ORDERED: ONDANSETRON HCL 4 MG/2 ML VIAL IVP ONE (02:15)
[2022-08-29] MEDS ORDERED: INSULIN REGULAR, HUMAN 100 UNITS/ML IVP ONE (02:15)
[2022-08-29 02:53] LABS: COVID AG,FIA SOURCE NASAL SWAB
[2022-08-29 03:01] LABS: GLUCOSE,POINT OF CARE 362 MG/DL (70-110)
[2022-08-29] MEDS ORDERED: 0.9% SODIUM CHLORIDE 10 ML SYRINGE IVP PRN (03:15)
[2022-08-29] MEDS ORDERED: INSULIN LISPRO 100 UNITS/ML SQ PRN (06:00)
[2022-08-29] MEDS ORDERED: ONDANSETRON HCL 4 MG/2 ML VIAL IVP PRN (06:00)
[2022-08-29] MEDS ORDERED: MAGNESIUM HYDROXIDE SUSPENSION 30 ML UDCUP PO PRN (06:00)
[2022-08-29] MEDS ORDERED: MORPHINE SULFATE 2 MG/ML SYRINGE IVP PRN (06:00)
[2022-08-29] MEDS ORDERED: ZOLPIDEM TARTRATE 5 MG TABLET PO PRN (06:00)
[2022-08-29] MEDS ORDERED: BISACODYL 10 MG RECTAL RECTAL SUPPOSITORY PR PRN (06:00)
[2022-08-29] MEDS ORDERED: ACETAMINOPHEN 325 MG TABLET PO PRN (06:00)
[2022-08-29] MEDS ORDERED: HYDROCODONE/ACETAMINOPHEN 5-325 MG TABLET PO PRN (06:00)
[2022-08-29] MEDS ORDERED: DEXTROSE 50%-WATER 25 GM/50 ML SYRINGE IVP PRN (06:00)
[2022-08-29 06:20] VITALS: BP 138/75
[2022-08-29] MEDS ORDERED: HEPARIN SODIUM,PORCINE 5,000 UNITS/ML VIAL SQ SCH (08:00)
[2022-08-29] MEDS ORDERED: DOCUSATE SODIUM 100 MG CAPSULE PO SCH (09:00)
[2022-08-29] MEDS ORDERED: PANTOPRAZOLE SODIUM 40 MG DR TABLET PO SCH (09:00)
[2022-08-29] MEDS ORDERED: AmLODIPine BESYLATE 10 MG TABLET PO SCH (09:00)
[2022-08-29] MEDS ORDERED: CARVEDILOL 25 MG TABLET PO SCH (09:00)
[2022-08-29] MEDS ORDERED: FENOFIBRATE 160 MG TABLET PO SCH (09:00)
[2022-08-29] MEDS ORDERED: ASPIRIN 81 MG DR TABLET PO SCH (11:00)
[2022-08-29] MEDS ORDERED: PRAVASTATIN SODIUM 40 MG TABLET PO SCH (21:00)
== END 2022-08-29 10:51 | disposition admitted as inpatient to this hospital (09) ==
LOC: EMS 00:44
DX: R07.89 Other chest pain (principal); E11.65 Type 2 diabetes mellitus with hyperglycemia; E78.00 Pure hypercholesterolemia, unspecified; I10 Essential (primary) hypertension; G43.909 Migraine, unspecified, not intractable, without status migrainosus; G89.29 Other chronic pain; M54.9 Dorsalgia, unspecified; Z93.3 Colostomy status; Z88.8 Allergy status to other drugs, medicaments and biological substances; Z98.890 Other specified postprocedural states; Z20.822 Contact with and (suspected) exposure to COVID-19
CPT/HCPCS: 99285; 96374; 71045; 96375; 96361; 87426; 80053; 82550; 82962; 83880; 84484; 85025; 85610; 85730; 93005; 96372; 36415; J1815; J2270; J2405; J1644; J7030

== ENCOUNTER 2022-09-25 10:26 | Emergency (ER) | payer MEDICARE, OTHER ==
[~2022-09-25] VITALS: Ht 162.6 cm; Wt 90.9 kg
[~2022-09-25 10:26] MED LIST changes: +ALPR1TAB7 PO; -AZIT-104 PO; +DULA0.75 SQ; +LOPE-232 PO; +LOSA-381 PO; -MAGN200T4 PO; +MAGN400T25 PO; +METF-1211 PO; -ONDA-104 PO; +OXYC-618 PO
[2022-09-25 11:09] LABS: BASOPHILS % (AUTO) 0.7 % (0.0-2.0); EOSINOPHILS % (AUTO) 3.1 % (1.0-6.0); HEMATOCRIT 26.9 % (36-46); HEMOGLOBIN 9.6 g/dL (12.0-16.0); LYMPHOCYTES # (AUTO) 1.5 K/uL (1.0-4.8); LYMPHOCYTES % (AUTO) 33.9 % (22.0-44.0); MEAN CORPUSCULAR HEMOGLOBIN 34.5 pg (26.0-34.0); MEAN CORPUSCULAR HGB CONC 35.7 G/dL (31.0-37.0); MEAN CORPUSCULAR VOLUME 97 fL (80-100); MONOCYTES # (AUTO) 0.3 K/uL (0.1-1.0); MONOCYTES % (AUTO) 6.3 % (2.0-9.0); NEUTROPHILS # (AUTO) 2.6 K/uL (1.8-7.7); PLATELET COUNT (AUTO) 458 K/uL (150-450); RED BLOOD CELL COUNT(AUTO) 2.78 MIL/uL (4.00-5.20); RED CELL DISTRIBUTION WIDTH 13.1 % (11.5-14.5)
[2022-09-25] MEDS ORDERED: ACETAMINOPHEN 500 MG TABLET PO ONE (11:15)
[2022-09-25] MEDS ORDERED: ONDANSETRON HCL 4 MG/2 ML VIAL IVP ONE (11:15)
[2022-09-25] MEDS ORDERED: MORPHINE SULFATE 2 MG/ML SYRINGE IVP ONE (11:15)
[2022-09-25 11:26] LABS: ALBUMIN 3.7 g/dL (3.4-5.0); BILIRUBIN,TOTAL 0.2 mg/dL (0.1-1.0); CALCIUM, TOTAL 9.4 mg/dL (8.8-10.5); CREATININE 1.12 mg/dL (0.60-1.30); POTASSIUM 3.8 mmol/L (3.5-5.1)
[2022-09-25] MEDS ORDERED: SODIUM CHLORIDE 0.9% 100 ML ONE (11:36)
[2022-09-25] MEDS ORDERED: IOHEXOL 350 MG/ML 100 ML VIAL ONE (11:36)
[2022-09-25] MEDS ORDERED: SODIUM CHLORIDE 0.9% 1,000 ML IV ONE (12:00)
[2022-09-25 13:25] LABS: APPEARANCE,URINE CLEAR (CLEAR); BILIRUBIN,URINE NEGATIVE (NEGATIVE); GLUCOSE, URINE (UA) >=1000 mg/dL (NEGATIVE); KETONES,URINE NEGATIVE (NEGATIVE); LEUKOCYTE ESTERASE ,URINE NEGATIVE (NEGATIVE); NITRATE,URINE NEGATIVE (NEGATIVE); OCCULT BLOOD,URINE SMALL (NEGATIVE); PROTEIN,URINE 100-200,SEE CONFIRM mg/dL (NEGATIVE); UROBILINOGEN,URINE <=1.0 mg/dL (<=1.0)
[2022-09-25 13:43] LABS: SULFOSALICYLIC ACID,URINE 2+ (Negative)
[2022-09-25 13:45] LABS: BACTERIA,URINE None Seen /HPF (None Seen); SQUAMOUS EPITHELIAL CELL,UR Few /LPF (None Seen); WBC,URINE None Seen /HPF (0-5)
[2022-09-25 13:59] VITALS: BP 139/71
== END 2022-09-25 14:15 | disposition home or self-care (01) ==
LOC: EMS 10:48
DX: R10.9 Unspecified abdominal pain (principal); E11.9 Type 2 diabetes mellitus without complications; E78.5 Hyperlipidemia, unspecified; E78.00 Pure hypercholesterolemia, unspecified; I10 Essential (primary) hypertension; G43.909 Migraine, unspecified, not intractable, without status migrainosus; Z88.6 Allergy status to analgesic agent
CPT/HCPCS: 99285; 74177; 96374; 96361; 96375; 80053; 81001; 85025; 36415; 81002; J2270; J2405; Q9967; J7050

== ENCOUNTER 2022-10-18 20:37 | Inpatient (IN) | payer MEDICARE, OTHER ==
[~2022-10-18] VITALS: Ht 154.9 cm; Wt 3.2 kg
[2022-10-18] MEDS ORDERED: LORazepam 2 MG/ML VIAL IVP ONE (22:30)
[2022-10-18] MEDS ORDERED: SODIUM CHLORIDE 0.9% 2,000 ML IV ONE (22:30)
[2022-10-18 23:07] LABS: ANION GAP 11 mmol/L (8-16); CALCIUM, TOTAL 8.8 mg/dL (8.8-10.5); CARBON DIOXIDE 22 mmol/L (22-29); CHLORIDE 98 mmol/L (98-107); CREATININE 1.11 mg/dL (0.60-1.30); GLOMERULAR FILTR. RATE CALC 50 mL/min (>60); GLUCOSE,RANDOM 349 mg/dL (70-110); SODIUM SERUM 131 mmol/L (136-145); UREA NITROGEN, BLOOD 17 mg/dL (7-18)
[2022-10-18 23:12] LABS: ALBUMIN 3.3 g/dL (3.4-5.0); ALKALINE PHOSPHATASE 131 U/L (46-116); BILIRUBIN,TOTAL 0.3 mg/dL (0.1-1.0); LIPASE 154 U/L (73-393)
[2022-10-18 23:34] LABS: ALANINE AMINOTRANSFERASE 38 U/L (12-78); ASPARTATE AMINOTRANSFERASE 28 U/L (15-37); TOTAL PROTEIN, SERUM 8.5 g/dL (6.4-8.2)
[2022-10-18 23:41] LABS: BASOPHILS % (AUTO) 1.1 % (0.0-2.0); EOSINOPHILS % (AUTO) 1.8 % (1.0-6.0); HEMATOCRIT 34.5 % (36-46); HEMOGLOBIN 12.3 g/dL (12.0-16.0); LYMPHOCYTES # (AUTO) 2.9 K/uL (1.0-4.8); LYMPHOCYTES % (AUTO) 19.8 % (22.0-44.0); MEAN CORPUSCULAR HGB CONC 35.7 G/dL (31.0-37.0); MEAN CORPUSCULAR VOLUME 93 fL (80-100); MONOCYTES # (AUTO) 0.7 K/uL (0.1-1.0); MONOCYTES % (AUTO) 4.6 % (2.0-9.0); NEUTROPHILS # (AUTO) 10.6 K/uL (1.8-7.7); NEUTROPHILS % (AUTO) 72.7 % (40.0-70.0); PLATELET COUNT (AUTO) 367 K/uL (150-450); RED BLOOD CELL COUNT(AUTO) 3.73 MIL/uL (4.00-5.20); RED CELL DISTRIBUTION WIDTH 12.8 % (11.5-14.5)
[2022-10-18 23:50] LABS: LACTIC ACID 0.8 mmol/L (0.4-2.0)
[2022-10-19 00:25] LABS: COVID AG,FIA SOURCE NASAL SWAB
[2022-10-19] MEDS ORDERED: ACETAMINOPHEN 325 MG TABLET PO PRN ×2 (01:00→12:15)
[2022-10-19] MEDS ORDERED: ONDANSETRON HCL 4 MG/2 ML VIAL IVP PRN (01:00)
[2022-10-19] MEDS ORDERED: 0.9% SODIUM CHLORIDE 10 ML SYRINGE IVP PRN (01:00)
[2022-10-19] MEDS ORDERED: ONDANSETRON HCL 4 MG/2 ML VIAL IVP ONE (04:00)
[2022-10-19] MEDS ORDERED: HYDROmorphone HCL 2 MG/ML SYRINGE IVP ONE (04:00)
[2022-10-19 04:55] VITALS: BP 138/80
[2022-10-19 08:18] VITALS: BP 144/96
[2022-10-19 11:36] VITALS: BP 144/86
[2022-10-19] MEDS ORDERED: SODIUM CHLORIDE 0.9% 1,000 ML IV ONE (12:15)
[2022-10-19] MEDS ORDERED: BISACODYL 10 MG RECTAL RECTAL SUPPOSITORY PR PRN (12:15)
[2022-10-19] MEDS ORDERED: MAGNESIUM HYDROXIDE SUSPENSION 30 ML UDCUP PO PRN (12:15)
[2022-10-19] MEDS ORDERED: MORPHINE SULFATE 2 MG/ML SYRINGE IVP PRN (12:15)
[2022-10-19] MEDS ORDERED: ZOLPIDEM TARTRATE 5 MG TABLET PO PRN (12:15)
[2022-10-19 15:21] VITALS: BP 165/100
[2022-10-19 15:55] LABS: AMPHET/METH SCREEN,URINE NEGATIVE (NEGATIVE); BARBITURATE SCREEN, URINE NEGATIVE (NEGATIVE); BENZODIAZEPINES SCREEN,URINE POSITIVE (NEGATIVE); CANNABINOID SCREEN,URINE NEGATIVE (NEGATIVE); COCAINE SCREEN,URINE NEGATIVE (NEGATIVE); METHADONE SCREEN, URINE NEGATIVE (NEGATIVE); OPIATE SCREEN,URINE NEGATIVE (NEGATIVE)
[2022-10-19 16:38] LABS: APPEARANCE,URINE CLEAR (CLEAR); BILIRUBIN,URINE NEGATIVE (NEGATIVE); GLUCOSE, URINE (UA) 300-500 mg/dL (NEGATIVE); KETONES,URINE TRACE mg/dL (NEGATIVE); OCCULT BLOOD,URINE NEGATIVE (NEGATIVE); SPECIFIC GRAVITIY, URINE 1.015 (1.003-1.030)
[2022-10-19 16:39] LABS: LEUKOCYTE ESTERASE ,URINE SMALL (NEGATIVE); NITRATE,URINE NEGATIVE (NEGATIVE); PROTEIN,URINE 100-200,SEE CONFIRM mg/dL (NEGATIVE); UROBILINOGEN,URINE <=1.0 mg/dL (<=1.0)
[2022-10-19 16:41] LABS: PHENCYCLIDINE SCREEN,URINE NEGATIVE (NEGATIVE)
[2022-10-19 16:46] LABS: BACTERIA,URINE Rare /HPF (None Seen); RBC,URINE 0-2 /HPF (0-2); SQUAMOUS EPITHELIAL CELL,UR Rare /LPF (None Seen)
[2022-10-19] MEDS: HYDROmorphone HCL 2 MG TABLET PO PRN (16:46)
[2022-10-19] MEDS: HEPARIN SODIUM,PORCINE 5,000 UNITS/ML VIAL SQ SCH ×2 (16:46→23:11)
[2022-10-19 16:47] LABS: SULFOSALICYLIC ACID,URINE 2+ (Negative)
[2022-10-19 20:05] VITALS: BP 155/96
[2022-10-19] MEDS: DOCUSATE SODIUM 100 MG CAPSULE PO SCH (21:00)
[2022-10-19] MEDS: CARVEDILOL 6.25 MG TABLET PO SCH (21:24)
[2022-10-19] MEDS: HYDROCODONE/ACETAMINOPHEN 5-325 MG TABLET PO PRN (21:24)
[2022-10-20] MEDS: HYDROCODONE/ACETAMINOPHEN 5-325 MG TABLET PO PRN ×4 (03:16→20:32)
[2022-10-20 05:59] LABS: EOSINOPHILS % (AUTO) 4.2 % (1.0-6.0); HEMATOCRIT 30.8 % (36-46); HEMOGLOBIN 10.7 g/dL (12.0-16.0); LYMPHOCYTES # (AUTO) 1.9 K/uL (1.0-4.8); LYMPHOCYTES % (AUTO) 46.2 % (22.0-44.0); MEAN CORPUSCULAR HEMOGLOBIN 31.8 pg (26.0-34.0); MEAN CORPUSCULAR HGB CONC 34.8 G/dL (31.0-37.0); MEAN CORPUSCULAR VOLUME 92 fL (80-100); MONOCYTES # (AUTO) 0.3 K/uL (0.1-1.0); MONOCYTES % (AUTO) 7.9 % (2.0-9.0); NEUTROPHILS # (AUTO) 1.7 K/uL (1.8-7.7); NEUTROPHILS % (AUTO) 40.7 % (40.0-70.0); PLATELET COUNT (AUTO) 282 K/uL (150-450); RED BLOOD CELL COUNT(AUTO) 3.36 MIL/uL (4.00-5.20); RED CELL DISTRIBUTION WIDTH 12.8 % (11.5-14.5)
[2022-10-20 06:31] LABS: ANION GAP 7 mmol/L (8-16); CALCIUM, TOTAL 8.8 mg/dL (8.8-10.5); CARBON DIOXIDE 24 mmol/L (22-29); CHLORIDE 103 mmol/L (98-107); CREATININE 0.84 mg/dL (0.60-1.30); GLUCOSE,RANDOM 343 mg/dL (70-110); POTASSIUM 3.9 mmol/L (3.5-5.1); SODIUM SERUM 134 mmol/L (136-145); THYROID STIMULATING HORMONE 0.98 uIU/mL (0.36-3.74); UREA NITROGEN, BLOOD 11 mg/dL (7-18)
[2022-10-20 06:39] LABS: GLOMERULAR FILTR. RATE CALC > 60 mL/min (>60)
[2022-10-20 07:38] VITALS: BP 165/98
[2022-10-20] MEDS: HEPARIN SODIUM,PORCINE 5,000 UNITS/ML VIAL SQ SCH ×3 (08:08→23:08)
[2022-10-20] MEDS: FENOFIBRATE 160 MG TABLET PO SCH (09:00)
[2022-10-20] MEDS: ASPIRIN 81 MG CHEWABLE TABLET PO SCH (09:00)
[2022-10-20] MEDS: PRAVASTATIN SODIUM 20 MG TABLET PO SCH (09:00)
[2022-10-20] MEDS: DOCUSATE SODIUM 100 MG CAPSULE PO SCH ×2 (09:00→20:37)
[2022-10-20] MEDS: CARVEDILOL 6.25 MG TABLET PO SCH ×2 (09:00→20:32)
[2022-10-20] MEDS: PANTOPRAZOLE SODIUM 40 MG DR TABLET PO SCH (09:00)
[2022-10-20 12:10] VITALS: BP 156/96
[2022-10-20 15:44] VITALS: BP 165/91
[2022-10-20] MEDS: CEPHALEXIN MONOHYDRATE 250 MG CAPSULE PO SCH ×2 (16:51→20:31)
[2022-10-20] MEDS: HYDROmorphone HCL 2 MG TABLET PO PRN (16:51)
[2022-10-20 20:25] VITALS: BP 170/90
[2022-10-20] MEDS: ONDANSETRON HCL 4 MG/2 ML VIAL IVP PRN ×2 (20:36→20:50)
[2022-10-20 23:23] VITALS: BP 168/95
[2022-10-21 05:34] VITALS: BP 179/96
[2022-10-21 06:29] LABS: EOSINOPHILS % (AUTO) 4.1 % (1.0-6.0); HEMATOCRIT 33.7 % (36-46); HEMOGLOBIN 11.7 g/dL (12.0-16.0); LYMPHOCYTES # (AUTO) 2.2 K/uL (1.0-4.8); LYMPHOCYTES % (AUTO) 41.8 % (22.0-44.0); MEAN CORPUSCULAR HEMOGLOBIN 31.5 pg (26.0-34.0); MEAN CORPUSCULAR HGB CONC 34.6 G/dL (31.0-37.0); MEAN CORPUSCULAR VOLUME 91 fL (80-100); MONOCYTES # (AUTO) 0.4 K/uL (0.1-1.0); MONOCYTES % (AUTO) 7.2 % (2.0-9.0); NEUTROPHILS # (AUTO) 2.4 K/uL (1.8-7.7); NEUTROPHILS % (AUTO) 45.9 % (40.0-70.0); PLATELET COUNT (AUTO) 349 K/uL (150-450); RED CELL DISTRIBUTION WIDTH 12.6 % (11.5-14.5)
[2022-10-21] MEDS: HYDROCODONE/ACETAMINOPHEN 5-325 MG TABLET PO PRN ×2 (06:50→11:55)
[2022-10-21 08:00] VITALS: BP 163/100
[2022-10-21] MEDS: PRAVASTATIN SODIUM 20 MG TABLET PO SCH (08:09)
[2022-10-21] MEDS: PANTOPRAZOLE SODIUM 40 MG DR TABLET PO SCH (08:09)
[2022-10-21] MEDS: ASPIRIN 81 MG CHEWABLE TABLET PO SCH (08:09)
[2022-10-21] MEDS: HEPARIN SODIUM,PORCINE 5,000 UNITS/ML VIAL SQ SCH (08:09)
[2022-10-21] MEDS: CEPHALEXIN MONOHYDRATE 250 MG CAPSULE PO SCH (08:09)
[2022-10-21] MEDS: FENOFIBRATE 160 MG TABLET PO SCH (08:09)
[2022-10-21] MEDS: DOCUSATE SODIUM 100 MG CAPSULE PO SCH (08:10)
[2022-10-21] MEDS ORDERED: CARVEDILOL 12.5 MG TABLET PO SCH (09:00)
[2022-10-21] MEDS ORDERED: ASPI81 PO (10:01)
[2022-10-21] MEDS ORDERED: PRAV20TA4 PO (10:01)
[2022-10-21] MEDS ORDERED: CEPH-556 PO (10:01)
[2022-10-21] MEDS ORDERED: CARV12 PO (10:01)
[2022-10-21] MEDS ORDERED: FENO160T75 PO (10:01)
[2022-10-21 11:55] VITALS: BP 162/100
[2022-10-21] MEDS ORDERED: AmLODIPine BESYLATE 5 MG TABLET PO SCH (14:00)
[2022-10-21] MEDS ORDERED: AMLO-257 PO (14:50)
[2022-10-21] MEDS ORDERED: CARVEDILOL 25 MG TABLET PO SCH (21:00)
== END 2022-10-21 15:00 | disposition home or self-care (01) | DRG 74 ==
LOC: EMS 20:39 → 5N 10-19 04:44
PROVIDERS: ADMIT Internal Medicine; ATTEND Internal Medicine
PROC: 4B02XTZ Measurement of Cardiac Defibrillator, External Approach (ICD-10-PCS; principal; 2022-10-19)
DX: G90.8 Other disorders of autonomic nervous system (principal); E87.1 Hypo-osmolality and hyponatremia; N39.0 Urinary tract infection, site not specified; F11.20 Opioid dependence, uncomplicated; G43.909 Migraine, unspecified, not intractable, without status migrainosus; I12.9 Hypertensive chronic kidney disease with stage 1 through stage 4 chronic kidney disease, or unspecified chronic kidney disease; N18.9 Chronic kidney disease, unspecified; S30.0XXA Contusion of lower back and pelvis, initial encounter; E11.65 Type 2 diabetes mellitus with hyperglycemia; E11.22 Type 2 diabetes mellitus with diabetic chronic kidney disease; Z20.822 Contact with and (suspected) exposure to COVID-19; E66.01 Morbid (severe) obesity due to excess calories; Z68.38 Body mass index [BMI] 38.0-38.9, adult; E78.5 Hyperlipidemia, unspecified; D64.9 Anemia, unspecified; M54.30 Sciatica, unspecified side; K21.9 Gastro-esophageal reflux disease without esophagitis; Z96.659 Presence of unspecified artificial knee joint; Z88.8 Allergy status to other drugs, medicaments and biological substances; Z98.84 Bariatric surgery status; Z90.710 Acquired absence of both cervix and uterus; Z95.810 Presence of automatic (implantable) cardiac defibrillator; Z79.82 Long term (current) use of aspirin; Z87.442 Personal history of urinary calculi; Z86.74 Personal history of sudden cardiac arrest; D72.829 Elevated white blood cell count, unspecified; Z91.81 History of falling; E11.43 Type 2 diabetes mellitus with diabetic autonomic (poly)neuropathy; Z79.4 Long term (current) use of insulin; C80.1 Malignant (primary) neoplasm, unspecified
CPT/HCPCS: 70450; 71045; 80048; 80053; 80307; 81001; 81002; 83605; 83690; 84443; 84484; 85025; 93005; 93306; 93880; 99285; G0480; J1170; J1644; J2060; J2405; J7030; 36415-L1; 36415-TC

== ENCOUNTER 2022-11-09 15:41 | Emergency (ER) | payer MEDICARE, OTHER ==
[~2022-11-09] VITALS: Ht 154.9 cm; Wt 90.9 kg
[~2022-11-09 15:41] MED LIST changes: -ALPR1TAB7 PO; +AMLO-257 PO; -AMLO-258 PO; +ASPI81 PO; -ASPI81TA87 PO; -CARI-493 PO; +CARV12 PO; -CARV25 PO; +CEPH-556 PO; -DULA0.75 SQ; -FENO160T11 PO; +FENO160T75 PO; -GABA600T10 PO; -LOPE-232 PO; -LOSA-381 PO; -MAGN400T25 PO; -METF-1211 PO; -MULT-660 PO; -OMEP20 PO; -OXYC-618 PO; +PRAV20TA4 PO; -PRAV40TA4 PO
[2022-11-09] MEDS ORDERED: OXYC-43 PO (15:51)
[2022-11-09] MEDS ORDERED: CARI-493 PO (15:51)
[2022-11-09] MEDS ORDERED: METF-1185 PO (15:52)
[2022-11-09 16:25] LABS: BASOPHILS % (AUTO) 0.7 % (0.0-2.0); EOSINOPHILS % (AUTO) 2.5 % (1.0-6.0); HEMATOCRIT 39.7 % (36-46); HEMOGLOBIN 13.6 g/dL (12.0-16.0); LYMPHOCYTES # (AUTO) 2.4 K/uL (1.0-4.8); MEAN CORPUSCULAR HEMOGLOBIN 30.6 pg (26.0-34.0); MEAN CORPUSCULAR HGB CONC 34.2 G/dL (31.0-37.0); MEAN CORPUSCULAR VOLUME 89 fL (80-100); MONOCYTES # (AUTO) 0.4 K/uL (0.1-1.0); MONOCYTES % (AUTO) 5.3 % (2.0-9.0); NEUTROPHILS # (AUTO) 3.8 K/uL (1.8-7.7); NEUTROPHILS % (AUTO) 56.5 % (40.0-70.0); PLATELET COUNT (AUTO) 415 K/uL (150-450); RED BLOOD CELL COUNT(AUTO) 4.45 MIL/uL (4.00-5.20); RED CELL DISTRIBUTION WIDTH 12.8 % (11.5-14.5)
[2022-11-09 16:36] LABS: CALCIUM, TOTAL 9.8 mg/dL (8.8-10.5); CREATININE 1.04 mg/dL (0.60-1.30); POTASSIUM 3.9 mmol/L (3.5-5.1)
[2022-11-09 16:51] LABS: ALBUMIN 3.7 g/dL (3.4-5.0); BILIRUBIN,TOTAL 0.1 mg/dL (0.1-1.0); TOTAL PROTEIN, SERUM 9.1 g/dL (6.4-8.2)
[2022-11-09 17:56] LABS: COVID AG,FIA SOURCE NASAL SWAB
[2022-11-09 18:16] LABS: INFLUENZA TYPE A NEGATIVE FOR TYPE A (NEGATIVE); INFLUENZA TYPE B NEGATIVE FOR TYPE B (NEGATIVE)
[2022-11-09] MEDS: ALBUTEROL SULFATE 2.5 MG/0.5 ML NEB SOLUTION NEB ONE (21:40)
[2022-11-09] MEDS ORDERED: IOHEXOL 350 MG/ML 100 ML VIAL ONE (22:37)
[2022-11-09] MEDS ORDERED: SODIUM CHLORIDE 0.9% 100 ML ONE (22:37)
[2022-11-10 00:32] VITALS: BP 132/83
== END 2022-11-10 00:50 | disposition home or self-care (01) ==
LOC: EMS 15:42
DX: R05.1 Acute cough (principal); F41.9 Anxiety disorder, unspecified; M19.90 Unspecified osteoarthritis, unspecified site; F32.A Depression, unspecified; E11.9 Type 2 diabetes mellitus without complications; E78.00 Pure hypercholesterolemia, unspecified; I10 Essential (primary) hypertension; G43.909 Migraine, unspecified, not intractable, without status migrainosus; M54.30 Sciatica, unspecified side; G89.29 Other chronic pain; Z90.49 Acquired absence of other specified parts of digestive tract; Z96.659 Presence of unspecified artificial knee joint; Z91.018 Allergy to other foods; Z98.890 Other specified postprocedural states; Z20.822 Contact with and (suspected) exposure to COVID-19
CPT/HCPCS: 99285; 71275; 71045; 87426; 80053; 82962; 83880; 84484; 85025; 87040; 87804; 36415; 94640; 93005; Q9967; J7050; J7613

== ENCOUNTER 2022-11-19 02:37 | Emergency (ER) | payer MEDICARE, OTHER ==
[~2022-11-19] VITALS: Ht 162.6 cm; Wt 84.1 kg
[~2022-11-19 02:37] MED LIST changes: +CARI-493 PO; -CEPH-556 PO; +METF-1185 PO; +OXYC-43 PO
[2022-11-19] MEDS ORDERED: ONDANSETRON HCL 4 MG/2 ML VIAL IVP ONE (03:15)
[2022-11-19] MEDS ORDERED: SODIUM CHLORIDE 0.9% 1,000 ML IV ONE (03:15)
[2022-11-19] MEDS ORDERED: INSULIN REGULAR, HUMAN 100 UNITS/ML IVP ONE (03:15)
[2022-11-19 03:28] LABS: BASOPHILS % (AUTO) 0.6 % (0.0-2.0); EOSINOPHILS % (AUTO) 3.1 % (1.0-6.0); HEMATOCRIT 35.6 % (36-46); HEMOGLOBIN 12.1 g/dL (12.0-16.0); LYMPHOCYTES # (AUTO) 2.9 K/uL (1.0-4.8); LYMPHOCYTES % (AUTO) 38.7 % (22.0-44.0); MEAN CORPUSCULAR HEMOGLOBIN 30.3 pg (26.0-34.0); MEAN CORPUSCULAR VOLUME 89 fL (80-100); MONOCYTES # (AUTO) 0.5 K/uL (0.1-1.0); MONOCYTES % (AUTO) 6.7 % (2.0-9.0); NEUTROPHILS # (AUTO) 3.8 K/uL (1.8-7.7); NEUTROPHILS % (AUTO) 50.9 % (40.0-70.0); PLATELET COUNT (AUTO) 341 K/uL (150-450); RED BLOOD CELL COUNT(AUTO) 4.01 MIL/uL (4.00-5.20); RED CELL DISTRIBUTION WIDTH 12.8 % (11.5-14.5)
[2022-11-19 03:42] LABS: ANION GAP 10 mmol/L (8-16); CARBON DIOXIDE 20 mmol/L (22-29); CHLORIDE 103 mmol/L (98-107); CREATININE 1.17 mg/dL (0.60-1.30); GLOMERULAR FILTR. RATE CALC 47 mL/min (>60); GLUCOSE,RANDOM 383 mg/dL (70-110); POTASSIUM 3.9 mmol/L (3.5-5.1); SODIUM SERUM 133 mmol/L (136-145); UREA NITROGEN, BLOOD 26 mg/dL (7-18)
[2022-11-19 03:48] LABS: ALANINE AMINOTRANSFERASE 31 U/L (12-78); ALBUMIN 3.2 g/dL (3.4-5.0); ALKALINE PHOSPHATASE 164 U/L (46-116); ASPARTATE AMINOTRANSFERASE 22 U/L (15-37); LIPASE 210 U/L (73-393); TOTAL PROTEIN, SERUM 7.8 g/dL (6.4-8.2)
[2022-11-19 03:49] LABS: BILIRUBIN,TOTAL < 0.1 mg/dL (0.1-1.0)
[2022-11-19 03:52] LABS: COVID AG,FIA SOURCE NASAL SWAB
[2022-11-19 04:41] LABS: INFLUENZA TYPE A NEGATIVE FOR TYPE A (NEGATIVE); INFLUENZA TYPE B NEGATIVE FOR TYPE B (NEGATIVE)
[2022-11-19 04:42] LABS: APPEARANCE,URINE CLEAR (CLEAR); BILIRUBIN,URINE NEGATIVE (NEGATIVE); GLUCOSE, URINE (UA) >=1000 mg/dL (NEGATIVE); KETONES,URINE NEGATIVE (NEGATIVE); LEUKOCYTE ESTERASE ,URINE NEGATIVE (NEGATIVE); NITRATE,URINE NEGATIVE (NEGATIVE); OCCULT BLOOD,URINE SMALL (NEGATIVE); PROTEIN,URINE 100-200,SEE CONFIRM mg/dL (NEGATIVE); SPECIFIC GRAVITIY, URINE 1.009 (1.003-1.030); UROBILINOGEN,URINE <=1.0 mg/dL (<=1.0)
[2022-11-19 04:52] LABS: BACTERIA,URINE None Seen /HPF (None Seen); RBC,URINE 0-2 /HPF (0-2); SQUAMOUS EPITHELIAL CELL,UR None Seen /LPF (None Seen); SULFOSALICYLIC ACID,URINE 1+ (Negative); WBC,URINE None Seen /HPF (0-5)
[2022-11-19] MEDS ORDERED: OxyCODONE HCL/ACETAMINOPHEN 5-325 MG TABLET PO ONE (05:00)
[2022-11-19 06:18] VITALS: BP 129/66
== END 2022-11-19 07:08 | disposition home or self-care (01) ==
LOC: EMS 02:40
DX: R10.32 Left lower quadrant pain (principal); G89.29 Other chronic pain; M54.30 Sciatica, unspecified side; E11.65 Type 2 diabetes mellitus with hyperglycemia; F41.9 Anxiety disorder, unspecified; M19.90 Unspecified osteoarthritis, unspecified site; F32.A Depression, unspecified; E78.00 Pure hypercholesterolemia, unspecified; I10 Essential (primary) hypertension; G43.909 Migraine, unspecified, not intractable, without status migrainosus; Z88.8 Allergy status to other drugs, medicaments and biological substances; Z20.822 Contact with and (suspected) exposure to COVID-19
CPT/HCPCS: 99285; 74176; 96374; 96361; 96375; 87426; 80053; 81001; 83690; 85025; 87804; 36415; 82962; J1815; J2405; J7030; 81002

== ENCOUNTER → 2022-11-26 | Outpatient (CLI) | payer MEDICARE, OTHER ==
[~2022-11-26] VITALS: Ht 172.7 cm; Wt 54.0 kg
[2022-11-26 13:50] VITALS: BP 125/68
== END | disposition home or self-care (01) ==
LOC: SRCNTR 09:45
PROVIDERS: ATTEND Internal Medicine Cardiovascular Disease
DX: Z45.02 Encounter for adjustment and management of automatic implantable cardiac defibrillator (principal)
CPT/HCPCS: 93289; G0463

== ENCOUNTER 2022-12-12 20:34 | Emergency (ER) | payer MEDICARE, OTHER ==
[~2022-12-12] VITALS: Ht 154.9 cm; Wt 91.8 kg
[2022-12-12 21:21] LABS: APPEARANCE,URINE CLEAR (CLEAR); BILIRUBIN,URINE NEGATIVE (NEGATIVE); GLUCOSE, URINE (UA) >=1000 mg/dL (NEGATIVE); KETONES,URINE NEGATIVE (NEGATIVE); LEUKOCYTE ESTERASE ,URINE NEGATIVE (NEGATIVE); NITRATE,URINE NEGATIVE (NEGATIVE); OCCULT BLOOD,URINE MODERATE (NEGATIVE); PROTEIN,URINE 100-200,SEE CONFIRM mg/dL (NEGATIVE); UROBILINOGEN,URINE <=1.0 mg/dL (<=1.0)
[2022-12-12 21:38] LABS: SULFOSALICYLIC ACID,URINE 1+ (Negative)
[2022-12-12 21:39] LABS: BACTERIA,URINE None Seen /HPF (None Seen); SQUAMOUS EPITHELIAL CELL,UR None Seen /LPF (None Seen); WBC,URINE None Seen /HPF (0-5)
[2022-12-13] MEDS ORDERED: METHOCARBAMOL 500 MG TABLET PO ONE
[2022-12-13] MEDS ORDERED: INSULIN REGULAR, HUMAN 100 UNITS/ML SQ ONE
[2022-12-13] MEDS ORDERED: HYDROCODONE/ACETAMINOPHEN 5-325 MG TABLET PO ONE
[2022-12-13 00:55] VITALS: BP 129/68
== END 2022-12-13 01:00 | disposition home or self-care (01) ==
LOC: EMS 21:15
DX: G89.29 Other chronic pain (principal); M54.50 Low back pain, unspecified; E11.65 Type 2 diabetes mellitus with hyperglycemia; F41.9 Anxiety disorder, unspecified; M19.90 Unspecified osteoarthritis, unspecified site; F32.A Depression, unspecified; E78.00 Pure hypercholesterolemia, unspecified; I10 Essential (primary) hypertension; G43.909 Migraine, unspecified, not intractable, without status migrainosus; Z90.49 Acquired absence of other specified parts of digestive tract; Z90.710 Acquired absence of both cervix and uterus; Z96.659 Presence of unspecified artificial knee joint; Z98.890 Other specified postprocedural states; Z88.8 Allergy status to other drugs, medicaments and biological substances
CPT/HCPCS: 99283; 81001; 82962; J1815; 81002

== ENCOUNTER → 2022-12-24 | Outpatient (CLI) | payer MEDICARE, OTHER ==
[~2022-12-24] VITALS: Ht 147.3 cm; Wt 92.0 kg
[~2022-12-24] MED LIST changes: +LOSA-381 PO
[2022-12-24 10:33] VITALS: BP 107/71
== END | disposition home or self-care (01) ==
LOC: SRCNTR 10:30
PROVIDERS: ATTEND Internal Medicine Cardiovascular Disease
DX: Z09 Encounter for follow-up examination after completed treatment for conditions other than malignant neoplasm (principal); I10 Essential (primary) hypertension; E11.9 Type 2 diabetes mellitus without complications; E78.5 Hyperlipidemia, unspecified; E66.9 Obesity, unspecified; Z95.810 Presence of automatic (implantable) cardiac defibrillator; C48.0 Malignant neoplasm of retroperitoneum
CPT/HCPCS: G0463

== ENCOUNTER 2023-04-08 17:46 | Emergency (ER) | payer MEDICARE, OTHER ==
[~2023-04-08] VITALS: Ht 154.9 cm; Wt 86.4 kg
[2023-04-08] MEDS ORDERED: GABA600T10 PO (17:54)
[2023-04-08] MEDS ORDERED: DULA1.5P SQ (17:54)
[2023-04-08] MEDS ORDERED: ONDA4TAB10 SL (17:54)
[2023-04-08] MEDS ORDERED: INSU100I26 SQ (17:54)
[2023-04-08] MEDS ORDERED: FUROSEMIDE 20 MG TABLET PO ONE (20:15)
[2023-04-08 21:16] LABS: BASOPHILS % (AUTO) 0.8 % (0.0-2.0); EOSINOPHILS % (AUTO) 3.3 % (1.0-6.0); HEMATOCRIT 29.3 % (36-46); HEMOGLOBIN 9.9 g/dL (12.0-16.0); LYMPHOCYTES # (AUTO) 2.1 K/uL (1.0-4.8); LYMPHOCYTES % (AUTO) 35.2 % (22.0-44.0); MEAN CORPUSCULAR HEMOGLOBIN 29.7 pg (26.0-34.0); MEAN CORPUSCULAR HGB CONC 33.6 G/dL (31.0-37.0); MEAN CORPUSCULAR VOLUME 89 fL (80-100); MONOCYTES # (AUTO) 0.6 K/uL (0.1-1.0); MONOCYTES % (AUTO) 9.4 % (2.0-9.0); NEUTROPHILS # (AUTO) 3.1 K/uL (1.8-7.7); NEUTROPHILS % (AUTO) 51.3 % (40.0-70.0); PLATELET COUNT (AUTO) 279 K/uL (150-450); RED BLOOD CELL COUNT(AUTO) 3.31 MIL/uL (4.00-5.20); RED CELL DISTRIBUTION WIDTH 13.1 % (11.5-14.5)
[2023-04-08 21:26] LABS: CALCIUM, TOTAL 8.7 mg/dL (8.8-10.5); CREATININE 1.17 mg/dL (0.60-1.30); POTASSIUM 4.4 mmol/L (3.5-5.1)
[2023-04-08 21:32] LABS: ALBUMIN 2.9 g/dL (3.4-5.0); TOTAL PROTEIN, SERUM 6.9 g/dL (6.4-8.2)
[2023-04-08 21:35] LABS: BILIRUBIN,TOTAL 0.1 mg/dL (0.1-1.0)
[2023-04-08 22:15] VITALS: BP 139/82; PULSE 89; RESP 18; TEMP 97.8
== END 2023-04-08 22:51 | disposition home or self-care (01) ==
LOC: EMS 18:02
DX: R60.0 Localized edema (principal); F41.9 Anxiety disorder, unspecified; M19.90 Unspecified osteoarthritis, unspecified site; F32.A Depression, unspecified; E11.9 Type 2 diabetes mellitus without complications; E78.00 Pure hypercholesterolemia, unspecified; I10 Essential (primary) hypertension; G43.909 Migraine, unspecified, not intractable, without status migrainosus; G89.29 Other chronic pain; Z90.49 Acquired absence of other specified parts of digestive tract; Z90.710 Acquired absence of both cervix and uterus; Z96.659 Presence of unspecified artificial knee joint; Z98.890 Other specified postprocedural states
CPT/HCPCS: 71045; 80053; 83880; 84484; 85025; 93005; 99285

== ENCOUNTER → 2023-07-06 | Outpatient (CLI) | payer MEDICARE, OTHER ==
[~2023-07-06] VITALS: Ht 149.9 cm; Wt 97.5 kg
[~2023-07-06] MED LIST changes: +DULA1.5P SQ; +GABA600T10 PO; +INSU100I26 SQ; +ONDA4TAB10 SL
[2023-07-06 12:04] VITALS: BP 142/83; PULSE 100; RESP 16; TEMP 98.9; O2SAT 98
== END | disposition home or self-care (01) ==
LOC: SRCNTR 11:24
PROVIDERS: ATTEND Internal Medicine Cardiovascular Disease
DX: Z09 Encounter for follow-up examination after completed treatment for conditions other than malignant neoplasm (principal); I10 Essential (primary) hypertension; E11.9 Type 2 diabetes mellitus without complications; E78.5 Hyperlipidemia, unspecified; E66.9 Obesity, unspecified; M54.50 Low back pain, unspecified; G89.4 Chronic pain syndrome; Z95.810 Presence of automatic (implantable) cardiac defibrillator
CPT/HCPCS: G0463; Z7500

== ENCOUNTER → 2023-07-06 | Outpatient (CLI) | payer MEDICARE, OTHER ==
[2023-07-06 13:23] LABS: BASOPHILS % (AUTO) 0.8 % (0.0-2.0); EOSINOPHILS % (AUTO) 3.7 % (1.0-6.0); HEMATOCRIT 33.8 % (36-46); HEMOGLOBIN 11.3 g/dL (12.0-16.0); LYMPHOCYTES # (AUTO) 1.9 K/uL (1.0-4.8); LYMPHOCYTES % (AUTO) 26.6 % (22.0-44.0); MEAN CORPUSCULAR HEMOGLOBIN 29.2 pg (26.0-34.0); MEAN CORPUSCULAR HGB CONC 33.3 G/dL (31.0-37.0); MEAN CORPUSCULAR VOLUME 88 fL (80-100); MONOCYTES # (AUTO) 0.6 K/uL (0.1-1.0); MONOCYTES % (AUTO) 8.3 % (2.0-9.0); NEUTROPHILS # (AUTO) 4.4 K/uL (1.8-7.7); NEUTROPHILS % (AUTO) 60.6 % (40.0-70.0); PLATELET COUNT (AUTO) 361 K/uL (150-450); RED BLOOD CELL COUNT(AUTO) 3.86 MIL/uL (4.00-5.20); RED CELL DISTRIBUTION WIDTH 13.6 % (11.5-14.5); WHITE BLOOD COUNT (AUTO) 7.3 K/uL (4.5-11.0)
[2023-07-06 13:26] LABS: ERYTHROCYTE SEDIMENTATION RATE 55 MM/HR (0-30)
[2023-07-06 13:30] LABS: HEMOGLOBIN A1C 7.3 % (3.8-5.6)
[2023-07-06 13:38] LABS: APPEARANCE,URINE CLEAR (CLEAR); BILIRUBIN,URINE NEGATIVE (NEGATIVE); COLOR,URINE LIGHT YELLOW (YELLOW); GLUCOSE, URINE (UA) >=1000 mg/dL (NEGATIVE); KETONES,URINE NEGATIVE (NEGATIVE); LEUKOCYTE ESTERASE ,URINE NEGATIVE (NEGATIVE); NITRATE,URINE NEGATIVE (NEGATIVE); OCCULT BLOOD,URINE LARGE (NEGATIVE); PH,URINE 5.5 (5.0-8.0); PROTEIN,URINE 300-600,SEE CONFIRM mg/dL (NEGATIVE); SPECIFIC GRAVITIY, URINE 1.013 (1.003-1.030); UROBILINOGEN,URINE <=1.0 mg/dL (<=1.0)
[2023-07-06 13:39] LABS: PROTHROMBIN TIME 10.6 SEC (9.4-11.6)
[2023-07-06 13:52] LABS: BACTERIA,URINE None Seen /HPF (None Seen); SQUAMOUS EPITHELIAL CELL,UR Few /LPF (None Seen); SULFOSALICYLIC ACID,URINE 3+ (Negative); WBC,URINE 0-2 /HPF (0-5)
[2023-07-06 14:06] LABS: ALBUMIN 3.2 g/dL (3.4-5.0); BILIRUBIN,TOTAL 0.1 mg/dL (0.1-1.0); C-REACTIVE PROTEIN QUANT 1.05 mg/dL (0.00-0.30); CALCIUM, TOTAL 9.8 mg/dL (8.8-10.5); CREATININE 1.06 mg/dL (0.60-1.30); POTASSIUM 4.4 mmol/L (3.5-5.1); TOTAL PROTEIN, SERUM 7.6 g/dL (6.4-8.2)
== END | disposition home or self-care (01) ==
LOC: LABMN 12:38
PROVIDERS: ATTEND Internal Medicine Cardiovascular Disease
DX: Z01.812 Encounter for preprocedural laboratory examination (principal); I10 Essential (primary) hypertension; E11.9 Type 2 diabetes mellitus without complications; E78.5 Hyperlipidemia, unspecified
CPT/HCPCS: 80053; 81001; 81002; 83036; 85025; 85610; 85651; 85730; 86140; 87086; 87186

== ENCOUNTER 2023-09-18 22:49 | Emergency (ER) | payer MEDICARE, OTHER ==
[~2023-09-18] VITALS: Ht 154.9 cm; Wt 96.8 kg
[2023-09-18 23:54] VITALS: TEMP 98.1
[2023-09-19 00:16] LABS: COVID AG,FIA SOURCE NASAL SWAB
[2023-09-19 00:35] LABS: INFLUENZA TYPE A NEGATIVE FOR TYPE A (NEGATIVE); INFLUENZA TYPE B NEGATIVE FOR TYPE B (NEGATIVE); SARS-COV2 (COVID) ANTIGEN,FIA Negative (Negative)
[2023-09-19] MEDS ORDERED: ONDANSETRON HCL 4 MG TABLET PO ONE (02:30)
[2023-09-19 03:18] LABS: HEMOGLOBIN 11.5 g/dL (12.0-16.0); LYMPHOCYTES # (AUTO) 1.5 K/uL (1.0-4.8); NEUTROPHILS % (AUTO) 63.2 % (40.0-70.0)
[2023-09-19 03:21] LABS: BASOPHILS % (AUTO) 0.7 % (0.0-2.0); EOSINOPHILS % (AUTO) 2.7 % (1.0-6.0); HEMATOCRIT 34.4 % (36-46); LYMPHOCYTES % (AUTO) 24.1 % (22.0-44.0); MEAN CORPUSCULAR HEMOGLOBIN 29.3 pg (26.0-34.0); MEAN CORPUSCULAR HGB CONC 33.5 G/dL (31.0-37.0); MEAN CORPUSCULAR VOLUME 87 fL (80-100); MONOCYTES # (AUTO) 0.6 K/uL (0.1-1.0); MONOCYTES % (AUTO) 9.3 % (2.0-9.0); PLATELET COUNT (AUTO) 352 K/uL (150-450); RED BLOOD CELL COUNT(AUTO) 3.94 MIL/uL (4.00-5.20); RED CELL DISTRIBUTION WIDTH 13.7 % (11.5-14.5); WHITE BLOOD COUNT (AUTO) 6.3 K/uL (4.5-11.0)
[2023-09-19 03:23] LABS: ANION GAP 8 mmol/L (8-16); CALCIUM, TOTAL 8.4 mg/dL (8.8-10.5); CARBON DIOXIDE 25 mmol/L (22-29); CHLORIDE 106 mmol/L (98-107); CREATININE 1.16 mg/dL (0.60-1.30); GLOMERULAR FILTR. RATE CALC 48 mL/min (>60); GLUCOSE,RANDOM 180 mg/dL (70-110); POTASSIUM 4.1 mmol/L (3.5-5.1); SODIUM SERUM 139 mmol/L (136-145); UREA NITROGEN, BLOOD 17 mg/dL (7-18)
[2023-09-19 03:29] LABS: ALANINE AMINOTRANSFERASE 32 U/L (12-78); ALBUMIN 2.8 g/dL (3.4-5.0); ALKALINE PHOSPHATASE 120 U/L (46-116); ASPARTATE AMINOTRANSFERASE 26 U/L (15-37); TOTAL PROTEIN, SERUM 7.3 g/dL (6.4-8.2)
[2023-09-19 03:30] LABS: BILIRUBIN,TOTAL 0.1 mg/dL (0.1-1.0)
[2023-09-19 03:39] LABS: B-TYPE NATRIURETIC PEPTIDE < 5 pg/mL (0-100)
[2023-09-19 04:20] VITALS: BP 141/90; PULSE 89; RESP 18
== END 2023-09-19 05:41 | disposition home or self-care (01) ==
LOC: EMS 22:51
DX: J06.9 Acute upper respiratory infection, unspecified (principal); F41.9 Anxiety disorder, unspecified; E11.9 Type 2 diabetes mellitus without complications; E78.00 Pure hypercholesterolemia, unspecified; I10 Essential (primary) hypertension; F32.A Depression, unspecified; K21.9 Gastro-esophageal reflux disease without esophagitis; G43.909 Migraine, unspecified, not intractable, without status migrainosus; Z87.440 Personal history of urinary (tract) infections; Z87.442 Personal history of urinary calculi; Z90.49 Acquired absence of other specified parts of digestive tract; Z90.710 Acquired absence of both cervix and uterus; Z88.8 Allergy status to other drugs, medicaments and biological substances; Z20.822 Contact with and (suspected) exposure to COVID-19
CPT/HCPCS: 99284; 87426; 80053; 83880; 85025; 87804; 36415; 71045; Q0162

== ENCOUNTER 2025-02-05 16:12 | Emergency (ER) | payer MEDICARE, OTHER ==
[~2025-02-05] VITALS: Ht 154.9 cm; Wt 81.8 kg
[~2025-02-05 16:12] MED LIST changes: +FENO160T14 PO; -FENO160T75 PO; +GABA-1404 PO; -GABA600T10 PO; +ONDA-243 SL; -ONDA4TAB10 SL
[2025-02-05 16:16] VITALS: TEMP 98.1
[2025-02-05] MEDS ORDERED: [UNRECOGNIZED DRUG - CODE] MISC (16:19)
[2025-02-05] MEDS ORDERED: METF-446 PO (16:19)
[2025-02-05] MEDS ORDERED: OMEP40CA21 PO (16:19)
[2025-02-05] MEDS ORDERED: OXYC10TA48 PO (16:19)
[2025-02-05] MEDS ORDERED: SEMA0.258 SQ (16:19)
[2025-02-05] MEDS: CloNIDine HCL 0.2 MG TABLET PO ONE (16:43)
[2025-02-05 16:53] LABS: EOSINOPHILS % (AUTO) 2.4 % (1.0-6.0); HEMATOCRIT 32.2 % (36-46); HEMOGLOBIN 10.8 g/dL (12.0-16.0); LYMPHOCYTES # (AUTO) 2.7 K/uL (1.0-4.8); LYMPHOCYTES % (AUTO) 30.4 % (22.0-44.0); MEAN CORPUSCULAR HEMOGLOBIN 29.2 pg (26.0-34.0); MEAN CORPUSCULAR HGB CONC 33.5 G/dL (31.0-37.0); MEAN CORPUSCULAR VOLUME 87 fL (80-100); MONOCYTES # (AUTO) 0.6 K/uL (0.1-1.0); MONOCYTES % (AUTO) 6.6 % (2.0-9.0); NEUTROPHILS # (AUTO) 5.2 K/uL (1.8-7.7); NEUTROPHILS % (AUTO) 59.6 % (40.0-70.0); PLATELET COUNT (AUTO) 372 K/uL (150-450); RED BLOOD CELL COUNT(AUTO) 3.69 MIL/uL (4.00-5.20); RED CELL DISTRIBUTION WIDTH 13.3 % (11.5-14.5); WHITE BLOOD COUNT (AUTO) 8.8 K/uL (4.5-11.0)
[2025-02-05 16:56] LABS: ANION GAP 11 mmol/L (8-16); CALCIUM, TOTAL 9.1 mg/dL (8.8-10.5); CARBON DIOXIDE 25 mmol/L (22-29); CHLORIDE 99 mmol/L (98-107); CREATININE 1.99 mg/dL (0.60-1.30); GLOMERULAR FILTR. RATE CALC 25 mL/min (>60); GLUCOSE,RANDOM 301 mg/dL (70-110); POTASSIUM 3.8 mmol/L (3.5-5.1); SODIUM SERUM 135 mmol/L (136-145); UREA NITROGEN, BLOOD 28 mg/dL (7-18)
[2025-02-05 17:06] LABS: B-TYPE NATRIURETIC PEPTIDE 187 pg/mL (0-100); CREATINE KINASE, TOTAL ONLY 92 U/L (26-192); TROPONIN I-HIGH SENSITIVITY 9 ng/L (<51)
[2025-02-05] MEDS: HALOPERIDOL LACTATE 5 MG/ML VIAL IVP ONE (19:04)
[2025-02-05] MEDS: ACETAMINOPHEN 1000 MG/ISO-OSM 100 ML IV ONE (19:10)
[2025-02-05] MEDS: MethylPREDNISolone SOD SUCC 125 MG/2 ML VIAL IVP ONE (19:10)
[2025-02-05 21:05] VITALS: BP 112/60; PULSE 64; RESP 16; O2SAT 98
[2025-02-05] MEDS: LIDOCAINE 5% TRANSDERMAL PATCH TD ONE (21:11)
[2025-02-05] MEDS: HYDROCODONE/ACETAMINOPHEN 5-325 MG TABLET PO ONE (21:11)
[2025-02-06] MEDS ORDERED: -LIDODERM PATCH NOTE- MISC SCH (09:15)
[2025-02-14] MEDS ORDERED: CELE100 PO (11:34)
[2025-02-16] MEDS ORDERED: LOSA-382 PO (10:50)
[2025-02-16] MEDS ORDERED: INSU3INS3 SQ (10:50)
[2025-02-16] MEDS ORDERED: NEED-463 SQ (10:50)
[2025-02-16] MEDS ORDERED: AMLO-258 PO (10:50)
== END 2025-02-05 21:18 | disposition home or self-care (01) ==
LOC: EMS 16:12
DX: G43.909 Migraine, unspecified, not intractable, without status migrainosus (principal); G89.29 Other chronic pain; M54.50 Low back pain, unspecified; E11.9 Type 2 diabetes mellitus without complications; I10 Essential (primary) hypertension; E78.00 Pure hypercholesterolemia, unspecified; R06.02 Shortness of breath; Z88.6 Allergy status to analgesic agent; Z88.8 Allergy status to other drugs, medicaments and biological substances; Z79.84 Long term (current) use of oral hypoglycemic drugs; Z90.49 Acquired absence of other specified parts of digestive tract; Z87.440 Personal history of urinary (tract) infections; Z79.899 Other long term (current) drug therapy
CPT/HCPCS: 99285; 96365; 70450; 71045; 96366; 96375; 80048; 82550; 83880; 84484; 85025; 36415; 82962; 93005; J2919; J1630; J0131

== ENCOUNTER 2025-04-09 20:59 | Emergency (ER) | payer MEDICARE, OTHER ==
[~2025-04-09] VITALS: Ht 154.9 cm; Wt 90.9 kg
[~2025-04-09 20:59] MED LIST changes: -AMLO-257 PO; +AMLO-258 PO; -ASPI81 PO; -CARI-493 PO; -CARV12 PO; -DULA1.5P SQ; -FENO160T14 PO; +HYDR50TA37 PO; -INSU100I26 SQ; -LOSA-381 PO; +LOSA-382 PO; -METF-1185 PO; +OMEP40CA21 PO; -ONDA-243 SL; -OXYC-43 PO; -PRAV20TA4 PO; +PRAV20TA59 PO; +SEMA0.258 SQ
[2025-04-09 21:23] LABS: APPEARANCE,URINE CLEAR (CLEAR); BILIRUBIN,URINE NEGATIVE (NEGATIVE); COLOR,URINE COLORLESS (YELLOW); GLUCOSE, URINE (UA) 300-500 mg/dL (NEGATIVE); KETONES,URINE NEGATIVE (NEGATIVE); LEUKOCYTE ESTERASE ,URINE TRACE (NEGATIVE); NITRATE,URINE NEGATIVE (NEGATIVE); OCCULT BLOOD,URINE LARGE (NEGATIVE); PROTEIN,URINE 300-600,SEE CONFIRM mg/dL (NEGATIVE); UROBILINOGEN,URINE <=1.0 mg/dL (<=1.0)
[2025-04-09 21:36] LABS: SULFOSALICYLIC ACID,URINE 2+ (Negative)
[2025-04-09 21:37] LABS: BACTERIA,URINE Few /HPF (None Seen); SQUAMOUS EPITHELIAL CELL,UR Few /LPF (None Seen)
[2025-04-09 21:42] LABS: BASOPHILS % (AUTO) 0.8 % (0.0-2.0); EOSINOPHILS % (AUTO) 3.2 % (1.0-6.0); HEMATOCRIT 27.5 % (36-46); HEMOGLOBIN 9.4 g/dL (12.0-16.0); LYMPHOCYTES # (AUTO) 3.1 K/uL (1.0-4.8); LYMPHOCYTES % (AUTO) 36.3 % (22.0-44.0); MEAN CORPUSCULAR HEMOGLOBIN 29.8 pg (26.0-34.0); MEAN CORPUSCULAR HGB CONC 34.2 G/dL (31.0-37.0); MEAN CORPUSCULAR VOLUME 87 fL (80-100); MONOCYTES # (AUTO) 0.5 K/uL (0.1-1.0); MONOCYTES % (AUTO) 5.9 % (2.0-9.0); NEUTROPHILS # (AUTO) 4.6 K/uL (1.8-7.7); NEUTROPHILS % (AUTO) 53.8 % (40.0-70.0); PLATELET COUNT (AUTO) 297 K/uL (150-450); RED BLOOD CELL COUNT(AUTO) 3.15 MIL/uL (4.00-5.20); RED CELL DISTRIBUTION WIDTH 13.1 % (11.5-14.5); WHITE BLOOD COUNT (AUTO) 8.5 K/uL (4.5-11.0)
[2025-04-09 21:49] LABS: CALCIUM, TOTAL 8.5 mg/dL (8.8-10.5); CREATININE 1.81 mg/dL (0.60-1.30); POTASSIUM 4.2 mmol/L (3.5-5.1)
[2025-04-09 21:55] LABS: ALANINE AMINOTRANSFERASE 20 U/L (12-78); ALBUMIN 2.7 g/dL (3.4-5.0); ALKALINE PHOSPHATASE 120 U/L (46-116); ASPARTATE AMINOTRANSFERASE 12 U/L (15-37); BILIRUBIN,TOTAL 0.1 mg/dL (0.1-1.0); LIPASE 45 U/L (16-77); TOTAL PROTEIN, SERUM 6.8 g/dL (6.4-8.2)
[2025-04-09 21:56] LABS: BILIRUBIN,DIRECT < 0.05 mg/dL (0.00-0.20)
[2025-04-09] MEDS: LIDOCAINE 5% TRANSDERMAL PATCH TD ONE (23:20)
[2025-04-09] MEDS: HYDROCODONE/ACETAMINOPHEN 10-325 MG TABLET PO ONE (23:20)
[2025-04-10] MEDS: HYDROmorphone HCL 2 MG/ML SYRINGE IM ONE (00:30)
[2025-04-10 00:39] VITALS: BP 143/90; PULSE 89; RESP 22; TEMP 97.8; O2SAT 97
[2025-04-11] MEDS ORDERED: AMLO-258 PO (11:25)
[2025-04-11] MEDS ORDERED: METH-812 PO (11:27)
== END 2025-04-10 01:00 | disposition home or self-care (01) ==
LOC: EMS 20:59
DX: G89.29 Other chronic pain (principal); M54.50 Low back pain, unspecified; F41.9 Anxiety disorder, unspecified; M19.90 Unspecified osteoarthritis, unspecified site; F32.A Depression, unspecified; E11.9 Type 2 diabetes mellitus without complications; E78.00 Pure hypercholesterolemia, unspecified; I10 Essential (primary) hypertension; K21.9 Gastro-esophageal reflux disease without esophagitis; G43.909 Migraine, unspecified, not intractable, without status migrainosus; Z87.442 Personal history of urinary calculi; Z90.49 Acquired absence of other specified parts of digestive tract; Z96.659 Presence of unspecified artificial knee joint; Z98.84 Bariatric surgery status; Z90.710 Acquired absence of both cervix and uterus; Z79.899 Other long term (current) drug therapy
CPT/HCPCS: 99283; 80048; 80076; 81001; 83690; 85025; 36415; 96372; J1171; 81002

== ENCOUNTER 2025-04-11 08:56 | Emergency (ER) | payer MEDICARE, OTHER ==
[~2025-04-11] VITALS: Ht 154.9 cm; Wt 96.8 kg
[2025-04-11 09:36] LABS: PLATELET COUNT (AUTO) 293 K/uL (150-450); RED BLOOD CELL COUNT(AUTO) 3.38 MIL/uL (4.00-5.20); RED CELL DISTRIBUTION WIDTH 13.5 % (11.5-14.5); WHITE BLOOD COUNT (AUTO) 7.0 K/uL (4.5-11.0)
[2025-04-11 09:42] LABS: CALCIUM, TOTAL 8.7 mg/dL (8.8-10.5); CREATININE 2.02 mg/dL (0.60-1.30); GLOMERULAR FILTR. RATE CALC 25 mL/min (>60); SODIUM SERUM 136 mmol/L (136-145); UREA NITROGEN, BLOOD 26 mg/dL (7-18)
[2025-04-11 09:45] LABS: GLUCOSE,RANDOM 413 mg/dL (70-110)
[2025-04-11 09:46] VITALS: TEMP 97.7
[2025-04-11 09:51] LABS: TROPONIN I-HIGH SENSITIVITY 7 ng/L (<51)
[2025-04-11] MEDS: METHOCARBAMOL 100 MG/ML 10 ML VIAL IVP ONE (10:25)
[2025-04-11] MEDS: OxyCODONE HCL/ACETAMINOPHEN 5-325 MG TABLET PO ONE (10:25)
[2025-04-11] MEDS: INSULIN REGULAR, HUMAN 100 UNITS/ML IVP ONE (10:28)
[2025-04-11 11:22] VITALS: BP 173/87; PULSE 72; RESP 16; O2SAT 96
[2025-04-11] MEDS ORDERED: AMLO-258 PO (11:25)
[2025-04-11] MEDS ORDERED: METH-812 PO (11:27)
[2025-04-11 11:35] LABS: GLUCOMETER DEV NAME(LOC) ERT.7; GLUCOSE,POINT OF CARE 318 MG/DL (70-110)
[2025-04-11 14:11] LABS: GLUCOMETER DEV NAME(LOC) ER.7; GLUCOSE,POINT OF CARE 379 MG/DL (70-110)
== END 2025-04-11 11:51 | disposition home or self-care (01) ==
LOC: EMS 08:58
DX: I10 Essential (primary) hypertension (principal); G89.29 Other chronic pain; N28.9 Disorder of kidney and ureter, unspecified; E11.65 Type 2 diabetes mellitus with hyperglycemia; F41.9 Anxiety disorder, unspecified; F32.A Depression, unspecified; K21.9 Gastro-esophageal reflux disease without esophagitis; E78.00 Pure hypercholesterolemia, unspecified; G43.909 Migraine, unspecified, not intractable, without status migrainosus; Z87.442 Personal history of urinary calculi; Z90.49 Acquired absence of other specified parts of digestive tract; Z90.710 Acquired absence of both cervix and uterus; Z96.659 Presence of unspecified artificial knee joint; Z98.84 Bariatric surgery status; Z79.899 Other long term (current) drug therapy; Z88.8 Allergy status to other drugs, medicaments and biological substances
CPT/HCPCS: 99285; 96374; 71045; 96375; 80048; 82962; 84484; 85025; 36415; 93005; J1815; J2800

== ENCOUNTER 2025-04-24 10:17 | Emergency (ER) | payer MEDICARE, OTHER ==
[~2025-04-24] VITALS: Ht 154.9 cm; Wt 92.0 kg
[~2025-04-24 10:17] MED LIST changes: +METH-812 PO
[2025-04-24 10:33] VITALS: TEMP 97.7
[2025-04-24 10:56] LABS: PLATELET COUNT (AUTO) 401 K/uL (150-450); RED BLOOD CELL COUNT(AUTO) 3.73 MIL/uL (4.00-5.20); RED CELL DISTRIBUTION WIDTH 13.5 % (11.5-14.5); WHITE BLOOD COUNT (AUTO) 7.9 K/uL (4.5-11.0)
[2025-04-24 11:12] LABS: APPEARANCE,URINE CLEAR (CLEAR); GLUCOSE, URINE (UA) >=1000 mg/dL (NEGATIVE); LEUKOCYTE ESTERASE ,URINE NEGATIVE (NEGATIVE); NITRATE,URINE NEGATIVE (NEGATIVE); OCCULT BLOOD,URINE MODERATE (NEGATIVE); SPECIFIC GRAVITIY, URINE 1.018 (1.003-1.030)
[2025-04-24 11:18] LABS: ASPARTATE AMINOTRANSFERASE 15.0 U/L (15-37); TOTAL PROTEIN, SERUM 8.1 g/dL (6.4-8.2)
[2025-04-24 11:24] LABS: SQUAMOUS EPITHELIAL CELL,UR Few /LPF (None Seen); SULFOSALICYLIC ACID,URINE 3+ (Negative)
[2025-04-24 11:25] LABS: CALCIUM, TOTAL 9.1 mg/dL (8.8-10.5); CREATININE 1.73 mg/dL (0.60-1.30); GLOMERULAR FILTR. RATE CALC 30.0 mL/min (>60); SODIUM SERUM 131.0 mmol/L (136-145); UREA NITROGEN, BLOOD 28.0 mg/dL (7-18)
[2025-04-24] MEDS: ONDANSETRON HCL 4 MG/2 ML VIAL IVP ONE (11:28)
[2025-04-24] MEDS: ACETAMINOPHEN 500 MG TABLET PO ONE (11:28)
[2025-04-24] MEDS: SODIUM CHLORIDE 0.9% 1,000 ML IV ONE (11:28)
[2025-04-24 11:29] LABS: GLUCOSE,RANDOM 508.0 mg/dL (70-110)
[2025-04-24] MEDS: INSULIN REGULAR, HUMAN 100 UNITS/ML IVP ONE (11:50)
[2025-04-24] MEDS: MORPHINE SULFATE 2 MG/ML SYRINGE IVP ONE (12:31)
[2025-04-24 14:50] VITALS: BP 130/77; PULSE 91; RESP 18; O2SAT 96
== END 2025-04-24 15:01 | disposition home or self-care (01) ==
LOC: EMS 10:20
DX: G43.909 Migraine, unspecified, not intractable, without status migrainosus (principal); E11.65 Type 2 diabetes mellitus with hyperglycemia; E78.00 Pure hypercholesterolemia, unspecified; I10 Essential (primary) hypertension; G89.29 Other chronic pain; K76.0 Fatty (change of) liver, not elsewhere classified; K21.9 Gastro-esophageal reflux disease without esophagitis; Z98.84 Bariatric surgery status; Z96.659 Presence of unspecified artificial knee joint; Z90.710 Acquired absence of both cervix and uterus; Z90.49 Acquired absence of other specified parts of digestive tract; Z87.442 Personal history of urinary calculi; Z79.899 Other long term (current) drug therapy; Z88.8 Allergy status to other drugs, medicaments and biological substances
CPT/HCPCS: 99285; 74176; 96374; 96375; 96361; 80048; 80076; 81001; 82962; 83690; 85025; 36415; J1171; J1815; J2270; J2405; J7030; 81002

== ENCOUNTER 2025-04-28 02:20 | Emergency (ER) | payer MEDICARE, OTHER ==
[~2025-04-28] VITALS: Ht 154.9 cm; Wt 96.8 kg
[2025-04-28] MEDS: SODIUM CHLORIDE 0.9% 1,000 ML IV ONE ×2 (03:08→05:32)
[2025-04-28 03:16] LABS: CALCIUM, TOTAL 8.1 mg/dL (8.8-10.5); CREATININE 2.28 mg/dL (0.60-1.30); GLOMERULAR FILTR. RATE CALC 22.0 mL/min (>60); SODIUM SERUM 125.0 mmol/L (136-145); UREA NITROGEN, BLOOD 32.0 mg/dL (7-18)
[2025-04-28] MEDS: ACETAMINOPHEN 500 MG TABLET PO ONE (03:21)
[2025-04-28 03:22] LABS: PLATELET COUNT (AUTO) 295 K/uL (150-450); RED BLOOD CELL COUNT(AUTO) 3.19 MIL/uL (4.00-5.20); RED CELL DISTRIBUTION WIDTH 13.3 % (11.5-14.5); WHITE BLOOD COUNT (AUTO) 6.6 K/uL (4.5-11.0)
[2025-04-28 03:25] LABS: GLUCOSE,RANDOM 757.0 mg/dL (70-110)
[2025-04-28 03:35] LABS: APPEARANCE,URINE CLEAR (CLEAR); GLUCOSE, URINE (UA) >=1000 mg/dL (NEGATIVE); LEUKOCYTE ESTERASE ,URINE NEGATIVE (NEGATIVE); NITRATE,URINE NEGATIVE (NEGATIVE); OCCULT BLOOD,URINE SMALL (NEGATIVE); SPECIFIC GRAVITIY, URINE 1.014 (1.003-1.030)
[2025-04-28 03:40] LABS: SQUAMOUS EPITHELIAL CELL,UR Few /LPF (None Seen)
[2025-04-28] MEDS: INSULIN GLARGINE,HUM.REC.ANLOG 100 UNITS/ML SQ ONE (03:47)
[2025-04-28] MEDS: INSULIN LISPRO 100 UNITS/ML SQ ONE ×2 (03:48→05:28)
[2025-04-28] MEDS: IBUPROFEN 400 MG TABLET PO ONE (03:58)
[2025-04-28 07:04] VITALS: BP 133/65; PULSE 70; RESP 16; TEMP 97.3; O2SAT 98
== END 2025-04-28 07:05 | disposition home or self-care (01) ==
LOC: EMS 02:20
DX: G43.909 Migraine, unspecified, not intractable, without status migrainosus (principal); E11.65 Type 2 diabetes mellitus with hyperglycemia; E78.00 Pure hypercholesterolemia, unspecified; G89.29 Other chronic pain; I10 Essential (primary) hypertension; M19.90 Unspecified osteoarthritis, unspecified site; Z98.84 Bariatric surgery status; Z79.85 Long-term (current) use of injectable non-insulin antidiabetic drugs; Z79.899 Other long term (current) drug therapy; Z87.442 Personal history of urinary calculi; Z90.49 Acquired absence of other specified parts of digestive tract; Z96.659 Presence of unspecified artificial knee joint; Z90.710 Acquired absence of both cervix and uterus
CPT/HCPCS: 99284; 96360; 96361; 80048; 81001; 82009; 82962; 85025; 36415; J1815; J7030; 82948

== ENCOUNTER 2025-07-04 19:37 | Emergency (ER) | payer MEDICARE, OTHER ==
[~2025-07-04] VITALS: Ht 154.9 cm; Wt 93.6 kg
[~2025-07-04 19:37] MED LIST changes: +ACET-3385 PO; +ALBU18HF12 IH; +CARI-493 PO; +CARV25 PO; +DULA1.5P SQ; +HYDR50TA36 PO; -HYDR50TA37 PO; +INSLAN SQ; +INSU100V42 SQ; +LOPE-232 PO; -LOSA-382 PO; +MAGN400T57 PO; -METH-812 PO; +ONDA-104 PO; +PRAV-59 PO; -PRAV20TA59 PO; -SEMA0.258 SQ
[2025-07-04 19:44] VITALS: TEMP 97.7
[2025-07-04 20:56] LABS: APPEARANCE,URINE CLEAR (CLEAR); GLUCOSE, URINE (UA) >=1000 mg/dL (NEGATIVE); LEUKOCYTE ESTERASE ,URINE NEGATIVE (NEGATIVE); NITRATE,URINE NEGATIVE (NEGATIVE); OCCULT BLOOD,URINE LARGE (NEGATIVE); SPECIFIC GRAVITIY, URINE 1.015 (1.003-1.030)
[2025-07-04 20:56] LABS: PLATELET COUNT (AUTO) 419 K/uL (150-450); RED BLOOD CELL COUNT(AUTO) 4.09 MIL/uL (4.00-5.20); RED CELL DISTRIBUTION WIDTH 13.7 % (11.5-14.5); WHITE BLOOD COUNT (AUTO) 7.4 K/uL (4.5-11.0)
[2025-07-04 21:01] LABS: CALCIUM, TOTAL 9.0 mg/dL (8.8-10.5); CREATININE 1.90 mg/dL (0.60-1.30); GLOMERULAR FILTR. RATE CALC 27 mL/min (>60); GLUCOSE,RANDOM 286 mg/dL (70-110); SODIUM SERUM 131 mmol/L (136-145); UREA NITROGEN, BLOOD 28 mg/dL (7-18)
[2025-07-04 21:06] LABS: CREATINE KINASE, TOTAL ONLY 61 U/L (26-192)
[2025-07-04 21:09] LABS: ACETONE,BLOOD NEGATIVE (NEGATIVE)
[2025-07-04 21:10] LABS: TROPONIN I-HIGH SENSITIVITY 8 ng/L (<51)
[2025-07-04 21:33] LABS: SULFOSALICYLIC ACID,URINE 4+ (Negative)
[2025-07-04 21:36] LABS: COARSE GRANULAR CASTS,URINE 0-2 /LPF (None Seen); SQUAMOUS EPITHELIAL CELL,UR Rare /LPF (None Seen)
[2025-07-04] MEDS: ONDANSETRON HCL 4 MG/2 ML VIAL IVP ONE (23:17)
[2025-07-04] MEDS: SODIUM CHLORIDE 0.9% 1,000 ML IV ONE (23:17)
[2025-07-04] MEDS: DEXAMETHASONE SOD PHOS 4 MG/ML 5 ML VIAL IVP ONE (23:17)
[2025-07-04] MEDS: ACETAMINOPHEN 1000 MG/ISO-OSM 100 ML IV ONE (23:17)
[2025-07-04] MEDS: INSULIN REGULAR, HUMAN 100 UNITS/ML IVP ONE (23:22)
[2025-07-05 01:35] VITALS: BP 134/72; PULSE 80; RESP 16; O2SAT 94
[2025-07-05 01:50] LABS: GLUCOMETER DEV NAME(LOC) ER.7; GLUCOSE,POINT OF CARE 299 MG/DL (70-110)
== END 2025-07-05 01:52 | disposition home or self-care (01) ==
LOC: EMS 19:37
DX: G43.909 Migraine, unspecified, not intractable, without status migrainosus (principal); R11.0 Nausea; E11.65 Type 2 diabetes mellitus with hyperglycemia; E78.00 Pure hypercholesterolemia, unspecified; G89.29 Other chronic pain; I10 Essential (primary) hypertension; M19.90 Unspecified osteoarthritis, unspecified site; K21.9 Gastro-esophageal reflux disease without esophagitis; Z87.19 Personal history of other diseases of the digestive system; Z87.442 Personal history of urinary calculi; Z90.49 Acquired absence of other specified parts of digestive tract; Z90.710 Acquired absence of both cervix and uterus; Z96.659 Presence of unspecified artificial knee joint; Z98.84 Bariatric surgery status; Z79.4 Long term (current) use of insulin; Z79.899 Other long term (current) drug therapy
CPT/HCPCS: 99285; 96365; 96375; 71045; 96361; 80048; 81001; 82009; 82550; 82962; 83880; 84484; 85025; 85610; 85730; 36415; 93005; J1100; J1815; J2405; J7030; J0131; 81002

== ENCOUNTER 2025-07-07 22:00 | Emergency (ER) | payer MEDICARE, OTHER ==
[~2025-07-07] VITALS: Ht 154.9 cm; Wt 93.6 kg
[2025-07-07 22:20] VITALS: TEMP 98.6
[2025-07-07 22:35] LABS: GLUCOMETER DEV NAME(LOC) ERT.7; GLUCOSE,POINT OF CARE 431 MG/DL (70-110)
[2025-07-07 22:54] LABS: PLATELET COUNT (AUTO) 328 K/uL (150-450); RED BLOOD CELL COUNT(AUTO) 3.67 MIL/uL (4.00-5.20); RED CELL DISTRIBUTION WIDTH 13.3 % (11.5-14.5); WHITE BLOOD COUNT (AUTO) 9.0 K/uL (4.5-11.0)
[2025-07-07 23:03] LABS: CALCIUM, TOTAL 8.5 mg/dL (8.8-10.5); CREATININE 2.27 mg/dL (0.60-1.30); GLOMERULAR FILTR. RATE CALC 22 mL/min (>60); SODIUM SERUM 128 mmol/L (136-145); UREA NITROGEN, BLOOD 36 mg/dL (7-18)
[2025-07-07 23:04] LABS: APPEARANCE,URINE CLEAR (CLEAR); GLUCOSE, URINE (UA) >=1000 mg/dL (NEGATIVE); LEUKOCYTE ESTERASE ,URINE NEGATIVE (NEGATIVE); NITRATE,URINE NEGATIVE (NEGATIVE); OCCULT BLOOD,URINE MODERATE (NEGATIVE); SPECIFIC GRAVITIY, URINE 1.014 (1.003-1.030)
[2025-07-07 23:09] LABS: ASPARTATE AMINOTRANSFERASE 29.0 U/L (15-37); TOTAL PROTEIN, SERUM 7.5 g/dL (6.4-8.2)
[2025-07-07 23:11] LABS: GLUCOSE,RANDOM 446 mg/dL (70-110)
[2025-07-07 23:11] LABS: SQUAMOUS EPITHELIAL CELL,UR Few /LPF (None Seen); SULFOSALICYLIC ACID,URINE 2+ (Negative)
[2025-07-07 23:20] LABS: TROPONIN I-HIGH SENSITIVITY 7 ng/L (<51)
[2025-07-07] MEDS: SODIUM CHLORIDE 0.9% 1,000 ML IV ONE (23:32)
[2025-07-08] MEDS: INSULIN LISPRO 100 UNITS/ML SQ ONE (00:28)
[2025-07-08] MEDS: ONDANSETRON HCL 4 MG/2 ML VIAL IVP ONE (00:52)
[2025-07-08 00:55] VITALS: BP 131/78; PULSE 101; RESP 18; O2SAT 98
[2025-07-08] MEDS ORDERED: ONDA-104 PO (01:52)
== END 2025-07-08 03:04 | disposition home or self-care (01) ==
LOC: EMS 22:00
DX: K52.9 Noninfective gastroenteritis and colitis, unspecified (principal); R11.2 Nausea with vomiting, unspecified; E11.65 Type 2 diabetes mellitus with hyperglycemia; I10 Essential (primary) hypertension; E78.00 Pure hypercholesterolemia, unspecified; M19.90 Unspecified osteoarthritis, unspecified site; N17.9 Acute kidney failure, unspecified; Z79.4 Long term (current) use of insulin; Z87.19 Personal history of other diseases of the digestive system; Z87.440 Personal history of urinary (tract) infections; Z90.49 Acquired absence of other specified parts of digestive tract; Z87.442 Personal history of urinary calculi; Z90.710 Acquired absence of both cervix and uterus; Z79.899 Other long term (current) drug therapy
CPT/HCPCS: 99284; 96361; 80048; 80076; 81001; 82009; 82962 ×2; 83690; 84484; 85025; 36415; 93005; 96374; J7030; J2405; 81002; J1815

== ENCOUNTER 2025-08-27 19:47 | Emergency (ER) | payer MEDICARE, OTHER ==
[~2025-08-27] VITALS: Ht 154.9 cm; Wt 93.6 kg
[2025-08-27 20:24] LABS: PLATELET COUNT (AUTO) 319 K/uL (150-450); RED BLOOD CELL COUNT(AUTO) 3.40 MIL/uL (4.00-5.20); RED CELL DISTRIBUTION WIDTH 13.8 % (11.5-14.5); WHITE BLOOD COUNT (AUTO) 8.7 K/uL (4.5-11.0)
[2025-08-27 20:42] LABS: CALCIUM, TOTAL 7.8 mg/dL (8.8-10.5); CREATININE 2.51 mg/dL (0.60-1.30); GLOMERULAR FILTR. RATE CALC 19.0 mL/min (>60); GLUCOSE,RANDOM 298.0 mg/dL (70-110); SODIUM SERUM 136.0 mmol/L (136-145); UREA NITROGEN, BLOOD 35.0 mg/dL (7-18)
[2025-08-27 20:44] LABS: ASPARTATE AMINOTRANSFERASE 20 U/L (15-37); TOTAL PROTEIN, SERUM 7.5 g/dL (6.4-8.2)
[2025-08-27 21:26] LABS: APPEARANCE,URINE HAZY (CLEAR); GLUCOSE, URINE (UA) >=1000 mg/dL (NEGATIVE); LEUKOCYTE ESTERASE ,URINE LARGE (NEGATIVE); NITRATE,URINE NEGATIVE (NEGATIVE); OCCULT BLOOD,URINE MODERATE (NEGATIVE); SPECIFIC GRAVITIY, URINE 1.024 (1.003-1.030)
[2025-08-27 21:42] LABS: SQUAMOUS EPITHELIAL CELL,UR Few /LPF (None Seen); SULFOSALICYLIC ACID,URINE 3+ (Negative)
[2025-08-27] MEDS ORDERED: PHEN-674 PO (22:33)
[2025-08-27] MEDS ORDERED: CEPH-558 PO (22:33)
[2025-08-27] MEDS: LIDOCAINE/PF 1% 2 ML VIAL IM ONE (23:02)
[2025-08-27] MEDS: CefTRIAXone SODIUM 1 GM/VIAL IM ONE (23:02)
[2025-08-27 23:30] VITALS: BP 137/83; PULSE 98; RESP 20; TEMP 97.3; O2SAT 97
== END 2025-08-28 | disposition home or self-care (01) ==
LOC: EMS 19:47
DX: N39.0 Urinary tract infection, site not specified (principal); G89.29 Other chronic pain; M54.50 Low back pain, unspecified; E11.9 Type 2 diabetes mellitus without complications; E78.00 Pure hypercholesterolemia, unspecified; I10 Essential (primary) hypertension; M19.90 Unspecified osteoarthritis, unspecified site; Z79.4 Long term (current) use of insulin; Z87.01 Personal history of pneumonia (recurrent); Z87.19 Personal history of other diseases of the digestive system; Z87.440 Personal history of urinary (tract) infections; Z90.49 Acquired absence of other specified parts of digestive tract; Z90.710 Acquired absence of both cervix and uterus; Z98.84 Bariatric surgery status; Z79.899 Other long term (current) drug therapy
CPT/HCPCS: 99283; 80048; 80076; 81001; 83690; 85025; 87086; 36415; 96372; J0696; J3490; 81002

== ENCOUNTER 2025-09-17 17:29 | Emergency (ER) | payer MEDICARE, OTHER ==
[~2025-09-17] VITALS: Ht 154.9 cm; Wt 95.9 kg
[~2025-09-17 17:29] MED LIST changes: +CEPH-558 PO; +PHEN-674 PO
[2025-09-17 17:44] VITALS: TEMP 98.4
[2025-09-17] MEDS ORDERED: DEXAMETHASONE SOD PHOS 4 MG/ML 5 ML VIAL IVP ONE (18:30)
[2025-09-17] MEDS ORDERED: ONDANSETRON HCL 4 MG/2 ML VIAL IVP ONE (18:30)
[2025-09-17] MEDS: DIVALPROEX SODIUM 500 MG ER TABLET PO ONE (19:06)
[2025-09-17] MEDS: ONDANSETRON HCL 4 MG/2 ML VIAL IM ONE (19:07)
[2025-09-17 19:15] LABS: CALCIUM, TOTAL 7.4 mg/dL (8.8-10.5); CREATININE 2.24 mg/dL (0.60-1.30); GLOMERULAR FILTR. RATE CALC 22 mL/min (>60); GLUCOSE,RANDOM 285 mg/dL (70-110); SODIUM SERUM 136 mmol/L (136-145); UREA NITROGEN, BLOOD 32 mg/dL (7-18)
[2025-09-17 19:16] LABS: PLATELET COUNT (AUTO) 320 K/uL (150-450); RED BLOOD CELL COUNT(AUTO) 3.54 MIL/uL (4.00-5.20); RED CELL DISTRIBUTION WIDTH 13.6 % (11.5-14.5); WHITE BLOOD COUNT (AUTO) 7.8 K/uL (4.5-11.0)
[2025-09-17 19:23] LABS: TROPONIN I-HIGH SENSITIVITY 9 ng/L (<51)
[2025-09-17 20:36] VITALS: BP 196/98; PULSE 65; RESP 16; O2SAT 98
[2025-09-17] MEDS ORDERED: TRAM50TA5 PO (21:19)
[2025-09-17] MEDS ORDERED: ONDA-104 PO (21:19)
== END 2025-09-17 21:34 | disposition home or self-care (01) ==
LOC: EMS 17:31
DX: G43.909 Migraine, unspecified, not intractable, without status migrainosus (principal); E11.22 Type 2 diabetes mellitus with diabetic chronic kidney disease; E11.65 Type 2 diabetes mellitus with hyperglycemia; E78.00 Pure hypercholesterolemia, unspecified; G89.29 Other chronic pain; I13.0 Hypertensive heart and chronic kidney disease with heart failure and stage 1 through stage 4 chronic kidney disease, or unspecified chronic kidney disease; J44.9 Chronic obstructive pulmonary disease, unspecified; N18.9 Chronic kidney disease, unspecified; M19.90 Unspecified osteoarthritis, unspecified site; F41.9 Anxiety disorder, unspecified; K21.9 Gastro-esophageal reflux disease without esophagitis; Z90.710 Acquired absence of both cervix and uterus; Z95.0 Presence of cardiac pacemaker; Z90.49 Acquired absence of other specified parts of digestive tract; Z87.442 Personal history of urinary calculi; Z96.659 Presence of unspecified artificial knee joint; Z98.84 Bariatric surgery status; Z87.19 Personal history of other diseases of the digestive system; Z79.4 Long term (current) use of insulin; Z79.899 Other long term (current) drug therapy
CPT/HCPCS: 99284; 80048; 82962; 84484; 85025; 36415; 93005; 96372; J1171; J2405; J7512